=== PATIENT | male | born 1950 | race Caucasian/White ===

== ENCOUNTER 2018-03-01 12:45 | Outpatient (CLI) | payer MEDICARE, BC ==
[2018-03-01] MEDS ORDERED: Gadobenate Dimeglumine 529 MG/1 ML (20ML VIAL) ONE (12:59)
--- NOTE | 2018-03-01 15:12 | MRI ---
CERVICAL SPINE MRI WITHOUT CONTRAST: History: Cervical spondylosis with myelopathy. Neck pain x many years. Comparison: None. Technique: Cervical spine MRI is performed without intravenous gadolinium administration. Multisequen tial, multiplanar imaging is performed. FINDINGS: There is appropriate T1 marrow signal intensity of the majority of the cervical vertebrae. There is T 1 hypointensity with associated T2 and STIR hyperintensity along the left aspect of the C6 and C7 dis c space suggesting endplate changes from type I Modic change. No evidence of fracture. No significant STIR hyperintensity to suggest vertebral body edema or ligamentous injury. The brain parenchyma, cervicomedullary junction, cervical cord, and the upper thoracic cord have a no rmal size and signal intensity. C2-3: There is a disc osteophyte complex that abuts the thecal sac. There is mild central canal steno sis neural foramina are patent bilaterally. Mild left hypertrophy. C3-4: Broad based disc osteophyte complex abuts the thecal sac. There is deformity of the ventral the brittani sac and mild deformity of the cervical cord. Overall there is mild central canal stenosis. There is no T2 hyperintensity in the cord. Degenerative change and bilateral uncal vertebral joints results in mild right and mild to moderate left foraminal narrowing. C4-5: There is a broad based disc osteophyte complex with a central component. The ventral midline castro barachnoid space is effaced. Mild deformity of the cervical cord, without T2 hyperintensity of the co rd. Mild to moderate central canal stenosis. Mild bilateral foraminal narrowing due to degenerative c hange of the uncal vertebral joint. C5-6: A broad based calcified complex with a slight paracentral component. The ventral subarachnoid s pace is effaced. There is deformity of the cervical cord. Mild to moderate central canal stenosis, wi thout T2 hyperintensity of the cord. Right neural foramen is patent. Mild left foraminal narrowing du e to degenerative changes of the uncal vertebral joint and to a lesser extent, facet hypertrophy. C6-7: Broad based osteophyte complex abuts the thecal sac. Ventral CSF space is still maintained. The re is mild deformity of the cervical cord, without T2 hyperintensity of the cord. Mild central canal stenosis. Neural foramina are patent. C7-T1: No evidence of disc osteophyte complex. No significant central canal stenosis. Neural foramina are patent. IMPRESSION: Degenerative changes of the cervical spine as above. POS: [facility]
--- NOTE | 2018-03-01 16:00 | MRI ---
LUMBAR SPINE MRI WITH AND WITHOUT CONTRAST: Date: 03/01/18 HISTORY: Lumbar spinal stenosis. Previous surgery. Generalized weakness. COMPARISON: None. TECHNIQUE: Lumbar spine MRI is performed with and without intravenous Gadolinium administration. Multisequential , multiplanar imaging is performed. FINDINGS: There is unilateral right-sided transpedicular screws at L4 and L5. There is associated metallic susc eptibility artifact. There is appropriate T1 marrow signal intensity of the lumbar vertebra. Vertebral body height is main tained. There is no fracture. No significant STIR hyperintensity to suggest vertebral body edema or l igamentous injury. No abnormal enhancement of the vertebral bodies. No abnormal enhancement within the thecal sac, including the cauda equina or conus medullaris. There is an exophytic 3.0 cm cyst in the left kidney. Symmetric signal intensity of the psoas muscles . Conus medullaris terminates at the mid L1 level. T12-L1: Mild disc desiccation. Mild loss of disc space height. Minimal generalized disc bulge. No significant central canal stenosis or neural foraminal narrowing. Mild bilateral foraminal narrowing is noted. L1-L2: Desiccation with mild loss of disc space height. Generalized disc bulge, ligamentum flavum thickening , and facet hypertrophy result in mild central canal stenosis. Mild bilateral foraminal narrowing. L2-L3: Desiccation with mild loss of disc space height. There is ligamentum flavum thickening and facet hype rtrophy. No significant central canal stenosis. Mild bilateral foraminal narrowing. L3-L4: Desiccation with mild loss of disc space height. Generalized disc bulge, ligamentum flavum thickening , and facet hypertrophy result in minimal central canal stenosis. Limited evaluation of the neural fo ramina. There appears to be at least moderate bilateral foraminal narrowing. On the postcontrast imag es, there is minimal enhancement at the laminectomy defect site. L4-L5: Mild loss of disc space height. Posterior decompression is noted. There is a generalized disc bulge. No significant central canal stenosis. Limited evaluation of the neural foramina. There appears to be moderate to severe bilateral foraminal narrowing. On the postcontrast images, there is mild enhancem ent along the right paracentral region, likely representing a component of scar tissue. L5-S1: Posterior decompression. No significant central canal stenosis. Adequate disc hydration. Neural zain antoni are patent bilaterally. Note, the overall AP diameter of the central spinal canal and the overall size of the neural foramina are diminutive secondary to congenitally foreshortened pedicles. IMPRESSION: 1. Postsurgical changes as above. 2. Varying degrees of central canal stenosis and foraminal narrowing as above. The overall diameter of the central spinal canal and the diameter of the neural foramina is decreased secondary to congeni tally foreshortened pedicles. POS: [facility]
== END 2018-03-01 12:46 | disposition home or self-care (01) ==
LOC: TBSIIMAG 12:45
PROVIDERS: ATTEND Neurological Surgery
DX: M47.12 Other spondylosis with myelopathy, cervical region (principal); M48.061 Spinal stenosis, lumbar region without neurogenic claudication; M99.83 Other biomechanical lesions of lumbar region; Z98.890 Other specified postprocedural states
CPT/HCPCS: 72141; 72158; A9579

== ENCOUNTER 2018-03-08 09:01 | Outpatient (CLI) | payer MEDICARE, BC ==
--- NOTE | 2018-03-08 11:58 | MRI ---
BRAIN MRA WITHOUT CONTRAST: HISTORY: Gait instability. COMPARISON: None. TECHNIQUE: A brain MRI is performed without intravenous Gadolinium administration. Multisequential, multiplanar imaging is performed. FINDINGS: No hemorrhage on the axial gradient echo sequence. Calvarium has a normal T1 marrow signal intensity. Midline brain parenchymal structures are unremark able. Age-appropriate atrophy. Focus of gliosis involving the left frontal lobe, near the vertex. There a re minimal white matter hyperintensities due to chronic small-vessel ischemic change. No parenchymal mass, mass effect, or midline shift. Cortical angel-white matter differentiation is preserved. Ventricles and sulci are patent and symmetric. Central arterial flow voids are maintained. Absent r estricted diffusion. There is left maxillary sinus mucosal disease. Mucosal thickening of the ethmoid air cells is noted bilaterally. Bilateral ocular lens implants are identified. Adequate mastoid air cell aeration. IMPRESSION: 1. No acute intracranial process. 2. Age-appropriate atrophy. 3. Focal area of gliosis involving the left frontal lobe, near the vertex. POS: [facility]
== END 2018-03-08 09:02 | disposition home or self-care (01) ==
LOC: TBSIIMAG 09:01
PROVIDERS: ATTEND Neurological Surgery
DX: R26.81 Unsteadiness on feet (principal); G93.89 Other specified disorders of brain
CPT/HCPCS: 70551

== ENCOUNTER 2018-03-19 21:38 | Observation (INO) | payer MEDICARE, BC ==
[2018-03-19 23:06] LABS: Troponin I 0.045 ng/mL (< 0.028)
[2018-03-20 02:02] LABS: Troponin I 0.033 ng/mL (< 0.028)
[2018-03-20 03:42] VITALS: BMI 36.5
[2018-03-20] MEDS ORDERED: Ondansetron HCl/PF 4 MG/2 ML Vial IVP PRN (03:45)
[2018-03-20] MEDS ORDERED: Ondansetron ODT 4 MG TAB SL PRN (03:45)
[2018-03-20] MEDS ORDERED: Sodium Chloride 0.9% 1,000 ML IV SCH (03:45)
[2018-03-20] MEDS ORDERED: Acetaminophen 325 MG TAB PO PRN ×2 (03:45→07:45)
[2018-03-20] MEDS ORDERED: Ondansetron ODT 4 MG TAB PO PRN (07:45)
[2018-03-20 08:26] LABS: Anion Gap 13 mmol/L (10-20); BUN (Urea Nitrogen) 12 mg/dL (8.4-25.7); Calc. Creatinine Clearance 126 mL/min (70-130); Calcium 9.2 mg/dL (7.8-10.44); Carbon Dioxide 23 mmol/L (23-31); Chloride 102 mmol/L (98-107); Estimated GFR-MDRD 90; Glucose 143 mg/dL (80-115); Potassium 4.1 mmol/L (3.5-5.1); Sodium 134 mmol/L (136-145)
[2018-03-20] MEDS ORDERED: Prevnar 13-Val Conj/PF 0.5 ML SYRINGE IM ONE (09:00)
--- NOTE | 2018-03-20 09:01 | HP ---
PRIMARY CARE PROVIDER: Rozina Reyes D.O. CHIEF COMPLAINT: Referred to the [facility] by [facility] after being seen in the [facility]. He was referred for gastroenteritis. HISTORY OF PRESENT ILLNESS: Two days ago, he started aching all over. He felt like he had fever, no documentation. He had chills, felt weak all over. The next day he felt a little better and then th e symptoms occurred. On day 1, he had some scant nausea, vomiting, some scant loose stools 2 days ag o. No definitive abdominal pain. He is much better now. He states he just ached all over. PAST MEDICAL HISTORY: Coronary artery disease, post coronary artery bypass graft 3 years ago; hypert ension; dyslipidemia. PAST SURGICAL HISTORY: He has had coronary artery bypass graft 3 years ago, L-spine surgery, catarac t surgery bilaterally, cholecystectomy. CURRENT MEDICINES: He is not aware of his current medications. When last discharged from the hospit al, approximately 1 year ago, vitamin C 1000 mg a day, Coreg 6.25 mg twice a day, aspirin 325 mg a da y, atorvastatin 80 mg a day, lisinopril 5 mg a day, diclofenac, and tramadol p.r.n. ALLERGIES: No known drug allergies. SOCIAL HISTORY: , nonsmoker, nondrinker. CODE STATUS: FULL CODE status. is surrogate decision maker. FAMILY HISTORY: Pertinent for heart disease in his mother. REVIEW OF SYSTEMS: General: He had like stated briefly with present illness, no fainting. Eyes: N o double vision, blurred vision, flashing lights. Ears, Nose, and Throat: No ear pain or drainage. No nasal bleeding. No trouble swallowing. Cardiac: No chest pain, no pressure chest pain, no shor tness of breath, no paroxysmal nocturnal dyspnea, no orthopnea. Respiratory: No cough, wheezing, or asthma. Gastrointestinal: See present illness. Genitourinary: No hematuria, dysuria, or nocturia . Musculoskeletal: Aches and pains with present illness; otherwise, no specific joint or muscle com plaints. No swelling. Neurologic: No strokes, seizures, or focal weakness. Psychiatric: No anxie ty, depression. Skin: No bruising, bleeding, or rash. Heme/Lymph: No tender or swollen lymph node s in axilla, inguinal, or cervical area. PHYSICAL EXAMINATION: GENERAL: He is an alert, pleasant, cooperative, eating. VITAL SIGNS: Blood pressure 152/67, pulse 74, respirations 15, temperature 98.0. HEENT: Examination of his head, eyes, ears, nose, and throat reveal pupils equal, round, and reactiv e to light. Extraocular movements are intact. Sclerae white. Tympanic membranes clear. Nose clear . Oral mucous membranes are wet. Dental hygiene is good. NECK: Supple, without jugular venous distention, adenopathy, thyromegaly. CHEST: Clear to auscultation and percussion. HEART: Had a regular rate and rhythm. First and second heart sounds are clear. There are no murmur s or gallops. ABDOMEN: Soft, bowel sounds are normal. There is no hepatosplenomegaly, no mass, no rebound, no bru its. EXTREMITIES: Reveal no cyanosis, clubbing, or edema. PULSES: Carotid, radial, femoral, and dorsalis pedis pulses intact, symmetric. SKIN: Warm and dry without bruises or rash. HEME/LYMPH: No tender or swollen lymph nodes in axillae, inguinal, or cervical area. NEUROLOGICAL: Cranial nerves II-XII are intact. Deep tendon reflexes symmetric. Moves all extremit ies. Toes downgoing. LABORATORY AND X-RAY FINDINGS: Done in [place], white cell count 15.4, hemoglobin 13.8, platelet co unt 129,000. Sodium 133, potassium 4.4, chloride 22, BUN 13, creatinine 0.95. Bilirubin 2.4, AST an d ALT normal. Cardiac enzymes, troponin 0.048, 0.045, 0.033. Urine is negative for white cells, germán kocyte esterase, etc. EKG: Regular sinus rhythm, first-degree block, no ST-T abnormality, normal re port, otherwise normal, reviewed by me. Chest x-ray, borderline cardiomegaly, no CHF or infiltrate, reviewed by me. ADMITTING DIAGNOSES: 1. Viral syndrome. 2. Coronary artery disease. 3. Hypertension. 4. Dyslipidemia. 5. Elevated troponin levels. DISCUSSION: I believe this patient has resolved viral syndrome. We will repeat CBC, basic metabolic profile. We will observe today. His troponins are descending. He has no cardiac symptomatology. No rise in his troponins, as the first one was the highest and the next two were lower. I currently see no reason for further workup at this time. I am waiting for his medicines to be updated, but he is currently on aspirin and a statin and a beta-panda by history. We will continue.
[2018-03-20 09:14] LABS: Band 1 % (5-11); Eosinophils 1 % (0-10); Hemoglobin 13.8 g/dL (14.0-18.0); Large Platelets SLIGHT; Lymphocytes 12 % (21-51); MDiff Complete? YES; Mean Corpuscular HGB CONC 35.1 g/dL (32.0-36.0); Mean Corpuscular Hemoglobin 32.3 pg (27.0-31.0); Mean Corpuscular Volume 92.2 fL (78.0-98.0); Mean Platelet Volume 9.1 fL (7.4-10.4); Monocytes 4 % (0-10); Neutrophil 80 % (42-75); PLT Morphology Comment Appears Decreased; Platelet Count 116 thou/uL (130-400); Polychromasia SLIGHT = 2-3 cells (100X) (0-2/hpf); RBC Distribution Width 12.1 % (11.5-14.5); Reactive Lymphocytes 2 % (0-10); Red Blood Cell (RBC) Count 4.27 mill/uL (4.70-6.10); White Blood Cell (WBC) Count 11.7 thou/uL (4.8-10.8)
[2018-03-20 11:31] VITALS: BP 155/69; TEMP 98
--- NOTE | 2018-03-20 14:08 | PDOC.PN ---
- Subjective Encounter Start Date: 03/20/18 Encounter Start Time: 14:07 Subjective: no complaints this am - Objective Resuscitation Status: Resuscitation Status FULL:Full Resuscitation MAR Reviewed: Yes Vital Signs & Weight: Vital Signs (12 hours) Temp Pulse Resp BP Pulse Ox 03/20/18 11:30 98.0 F 68 18 155/69 H 94 L 03/20/18 08:00 98.4 F 77 18 140/63 96 03/20/18 03:25 98.0 F 74 15 152/67 H 99 Weight Weight 233 lb 3.2 oz Result Diagrams: 03/20/18 07:58 03/20/18 07:58 Phys Exam - Physical Examination Neck: no JVD Respiratory: clear to auscultation bilateral Cardiovascular: RRR chronic bradycardia Gastrointestinal: soft, positive bowel sounds Musculoskeletal: no edema Dx/Plan (1) Sinus bradycardia Code(s): R00.1 - BRADYCARDIA, UNSPECIFIED Status: Chronic (2) Dizziness and giddiness Code(s): R42 - DIZZINESS AND GIDDINESS Status: Acute - Plan * .
--- NOTE | 2018-03-20 15:01 | DIS ---
DATE OF ADMISSION: 03/20/2018 DATE OF DISCHARGE: 03/20/2018 TRANSFER OF CARE DISCHARGE DISPOSITION: Home. FINAL DIAGNOSES: Viral syndrome, resolved; coronary artery disease, stable; hypertension; elevated c holesterol. DISCHARGE MEDICATIONS: Same as his home medicines, lisinopril 5 mg a day, Lasix 20 mg a day, Coreg 6 .25 mg twice a day, Lipitor 80 mg a day, fish oil 1000 mg twice a day, aspirin 325 a day, vitamin C 5 00 a day. ALLERGIES: No known allergies. PENDING AT THE TIME OF DISCHARGE: Nothing. CODE STATUS: Full. DIET: Heart healthy. HOSPITAL COURSE: The patient admitted to the hospital through [place] emergency room with 2 days of whole body aches, fever, chills, some minimal nausea and vomiting, some minimal diarrhea. He is a ctually feeling much better by the time he got to the hospital. His Physical examination was unremar kable. EKG was normal. LABORATORY DATA: White count 11.7, hemoglobin 13.8, platelet count 116,000. Chemistries 134 sodium, otherwise normal. Troponins were 0.048, 0.045, 0.033. The patient is currently desirous of going home. He feels well. Vital signs are stable. Cardioresp iratory exam is normal. He has never had chest pain, shortness of breath or any cardiac symptoms. H is troponins are mildly elevated and in a descending range, strongly suggestive that there is no evid ence of a non-ST elevation NM. It would be reasonable once he is completely recovered from his viral syndrome to consider doing an outpatient exercise stress test. This can easily be arranged as an ou tpatient. CONSULTATIONS: None. PROCEDURES: None. His doctor was listed as Dr. Rozina Reyes. He says now it is a Dr. Peterson. He has been asked to see his doctor in 1 week for followup.
== END 2018-03-20 14:29 | disposition home or self-care (01) ==
LOC: ERS 21:38 → 2NO 03-20 01:36
PROVIDERS: ADMIT Hospitalist; ATTEND Hospitalist
DX: B34.9 Viral infection, unspecified (principal); R00.1 Bradycardia, unspecified; R42 Dizziness and giddiness; I25.10 Atherosclerotic heart disease of native coronary artery without angina pectoris; I10 Essential (primary) hypertension; E78.5 Hyperlipidemia, unspecified; R79.89 Other specified abnormal findings of blood chemistry; Z79.82 Long term (current) use of aspirin; Z79.899 Other long term (current) drug therapy
CPT/HCPCS: 80048; 84484 ×2; 85007; 85027; 99285; G0378; 36415; 90471; 90670; G0009

== ENCOUNTER 2019-01-28 04:54 | Inpatient (IN) | payer MEDICARE, BC ==
[2019-01-28 06:46] LABS: Troponin I 0.092 ng/mL (< 0.028)
[2019-01-28] MEDS ORDERED: Ondansetron PF 4 MG/2 ML Vial IVP PRN ×2 (07:25→10:24)
[2019-01-28] MEDS ORDERED: Ondansetron ODT 4 MG TAB SL PRN (07:25)
[2019-01-28 07:55] VITALS: BMI 36.3
[2019-01-28 09:36] LABS: Troponin I 0.097 ng/mL (< 0.028)
[2019-01-28] MEDS ORDERED: Calcium Carbonate 500 MG ChewTAB PO PRN (10:24)
[2019-01-28] MEDS ORDERED: Guaifenesin DM 100-10/5 ML UDCUP PO PRN (10:24)
[2019-01-28] MEDS ORDERED: Acetaminophen 325 MG TAB PO PRN (10:24)
[2019-01-28] MEDS ORDERED: Bisacodyl 10 MG SUPP PR PRN (10:24)
[2019-01-28] MEDS ORDERED: Senokot S 8.6-50 MG TAB PO PRN (10:24)
[2019-01-28] MEDS ORDERED: Iopamidol 370 76% 100 ML VIAL ONE (11:05)
--- NOTE | 2019-01-28 13:41 | ULT ---
EXAM: Bilateral lower extremity venous ultrasound HISTORY: Bilateral lower extremity pain and edema COMPARISON: None TECHNIQUE: Multiplanar grayscale and color Doppler images were obtained in a bilateral lower extremit y venous ultrasound. Spectral analysis of the Doppler waveforms were performed. FINDINGS: The bilateral common femoral vein, profunda femoral veins, superficial femoral veins, and p opliteal veins are normal in appearance without visible thrombus. These vessels demonstrate normal compression, flow, and augmentation. The bilateral posterior tibial veins and greater saphenous veins are patent without evidence of DVT. IMPRESSION: No evidence of DVT.
--- NOTE | 2019-01-28 14:12 | HP ---
REASON FOR ADMISSION: CHF exacerbation, non-ST elevation FL, hyponatremia, and metabolic acidosis. HISTORY OF PRESENTING ILLNESS: The patient gives history of feeling weak and was unable to ambulate at home. He apparently got up at around 1:30 in the night to have a bowel movement. He fell in the restroom, but did not lose consciousness. He states his knees gave out and had a fall. The patient did not lose consciousness. He went to [facility], from where he was transferred here. No complaints of chest pain as such. The patient has progressive swelling in his lower extremities. He has had some swelling always, but increased at present. He has also been belching a lot since then. No complaints of cough or expectoration. The patient ambulates very minimally in the house. at bedside adds that he does not exercise much. He follows up with Dr. Silver. The patient has had FL in 2016 and has had CABG for LAD done in November of 2015. The mentions that even then the patient just had a viral-type illness something similar to at present. No fever at home, although he has felt chills. PAST MEDICAL AND SURGICAL HISTORY: History of coronary artery disease with one-vessel CABG done in November of 2015. Has had 3 prior cardiac stents per the patient. Cataract surgery, dyslipidemia, hypertension, obesity, lumbar spine surgery, and cholecystectomy. CURRENT MEDICATIONS: The patient takes; 1. Lasix 20 mg daily. 2. Lisinopril 5 mg daily. 3. Atorvastatin 80 mg p.o. daily. 4. Carvedilol 6.25 mg twice daily. 5. Fish oil 1000 mg p.o. daily. 6. Vitamin C 500 mg p.o. daily. 7. Centrum Silver 1 tablet daily. 8. Aspirin 81 mg twice daily. ALLERGIES: NO KNOWN DRUG ALLERGIES. PERSONAL HISTORY: Does not abuse alcohol or drugs. Quit smoking more than 15 years ago. Lives with his . FAMILY HISTORY: Mother at the age of 63 years. She has had history of CABG for 3 vessels. Father at the age of 80 years. He has had history of diabetes. REVIEW OF SYSTEMS: CONSTITUTIONAL: Negative for weight loss or gain, ability to conduct usual activities. SKIN: Negative for rash, itching. EYES: Negative for double vision, pain. ENT/MOUTH: Negative for nose bleeding, neck stiffness, pain, tenderness. CARDIOVASCULAR: Negative for palpitations, dyspnea on exertion, orthopnea. RESPIRATORY: Negative for shortness of breath, wheezing, cough, hemoptysis, fever or night sweats. GASTROINTESTINAL: Negative for poor appetite, abdominal pain, heartburn, nausea , vomiting, constipation, or diarrhea. GENITOURINARY: Negative for urgency, frequency, dysuria, nocturia. MUSCULOSKELETAL: Negative for pain, swelling. NEUROLOGIC/PSYCHIATRIC: Negative for anxiety, depression. ALLERGY/IMMUNOLOGIC: Negative for skin rash, bleeding tendency. PHYSICAL EXAMINATION: GENERAL: The patient is a 68-year-old male, who is currently lethargic and is not feeling good. VITAL SIGNS: Blood pressure 130/64, pulse 76 per minute, respiratory rate 16 per minute, temperature 98.8 degrees Fahrenheit, and saturating 96% on 2 L by nasal cannula. NECK: Supple. No elevated JVD. HEENT: Eyes; extraocular muscles intact. Pupils are reacting to light. Oral cavity, mucous membranes are moist. No exudates or congestion. CARDIOVASCULAR: S1 and S2 heard. No murmur. RESPIRATORY SYSTEM: Air entry 1+ bilateral. Basal rales plus no rhonchi. ABDOMEN: Soft. Bowel sounds heard. No tenderness, rigidity, or guarding. EXTREMITIES: There is 1 to 2+ peripheral edema. No calf tenderness. VASCULAR SYSTEM: Peripheral pulses 1+ bilateral. No ischemic ulcerations or gangrene. CENTRAL NERVOUS SYSTEM: No gross focal deficits noted. The patient is lethargic, but oriented well. PSYCHIATRIC SYSTEM: The patient's mood is euthymic. No hallucinations or delusions. LABORATORY DATA: EKG done shows normal sinus rhythm at 78 beats per minute. There is nonspecific ST-T wave changes. Chest x-ray done shows cardiomegaly. No acute infiltrate. White count of 8, H and H 13 and 40, platelet count 99 with 69% neutrophils, MCV is 89. Sodium is 129, serum bicarb 19, BUN 16, creatinine 0.8 , and T bilirubin 1.5. AST and ALT within normal limits. BNP is 594. Troponin I is indeterminate, peaking up to 0.097. CK-MB 1.7. Albumin is 3.6. CLINICAL IMPRESSION AND PLAN: The patient will be under observation on telemetry for acute congestive heart failure exacerbation with prior history of coronary artery disease and coronary artery bypass grafting. We will also obtain a urinalysis in view of his chills and a CT of the abdomen and pelvis due to nonspecific abdominal discomfort and belching. Echo with 2D Doppler for left ventricular function. Ultrasound venous Doppler to rule out deep venous thrombosis. He will be on Lasix 40 mg twice daily, small dose of lisinopril and home dose of Coreg 6.25 twice daily. We will continue his aspirin, Lipitor, fish oil, and multivitamin as before. Cardiology consultation with Dr. Silver will be requested. CODE STATUS: Discussed with the patient and he is a full code. is power of trust and estates attorney. Job ID: [id number] [id number]
--- NOTE | 2019-01-28 15:13 | CT ---
CONTRAST ENHANCED CT IMAGES ABDOMEN AND PELVIS: HISTORY: Abdominal vomiting and pain. FINDINGS: Contrast enhanced CT images of the abdomen and pelvis demonstrate a small right-sided pleural effusio n. Some adjacent areas of atelectasis and consolidation also present. The liver and spleen are unremarkable. The gallbladder has been surgically removed. The pancreas is unremarkable. Adrenal glands unremarkable. The right kidney is unremarkable. Cortical cyst seen in the upper pole of the left kidney. Atherosclerotic calcination seen of the abdominal aorta. Some calcifications seen in the celiac artery as well as in the proximal aspect of the superior mesen teric artery. Some noncalcified plaques also seen in the proximal SMA. Findings suggest at least a 50-60% proximal SMA stenosis. The YOVANI is patent. The renal arteries are patent. No evidence of periaortic lymphadenopathy seen. Bilateral mildly enlarged inguinal lymph nodes are present. Small bowel and colon are unremarkable. IMPRESSION: 1. 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 Transcribed Date/Time: 01/28/2019 3:24 PM
[2019-01-28] MEDS: Furosemide 40 MG/4 ML VIAL SLOW IVP SCH (16:28)
[2019-01-28 17:01] LABS: Bilirubin Negative (Negative); Blood, Urine Negative (Negative); Clarity CLEAR (Clear); Glucose, Urine (Dipstick) Negative (Negative); Leukocyte Negative (Negative); Nitrite Negative (Negative); Protein, Urine (Dipstick) Negative (Neg-Trace); Specific Gravity, Urine 1.025 (1.002-1.036)
[2019-01-28 17:04] LABS: Bacteria/HPF None Seen HPF (None Seen); Hyaline Casts/LPF 0-3 HYALINE CAST LPF (0-3 Hyaline); Squamous Epithelial None Seen HPF (0-3); WBC/HPF 0-3 HPF (0-3)
[2019-01-28 17:06] LABS: Urine Culture Reflex No No
[2019-01-28] MEDS: Piperacillin/Tazobactam 4.5 GM in Sodium Chloride 0.9% 100 ML IVPB SCH (18:31)
[2019-01-28] MEDS ORDERED: OMEGA PO SCH (21:00)
[2019-01-28] MEDS ORDERED: FISH OIL PO SCH (21:00)
[2019-01-28] MEDS ORDERED: DHA PO SCH (21:00)
[2019-01-28] MEDS ORDERED: EPA PO SCH (21:00)
[2019-01-28] MEDS ORDERED: [UNRECOGNIZED DRUG - OTHER] PO SCH (21:00)
[2019-01-28] MEDS: Atorvastatin Calcium 40 MG TAB PO SCH (21:07)
[2019-01-28] MEDS: Fish Oil 1,000 MG CAP PO SCH (21:08)
[2019-01-28] MEDS: Carvedilol 6.25 MG TAB PO SCH (21:10)
[2019-01-28] MEDS: Famotidine 20 MG TAB PO SCH (21:10)
--- NOTE | 2019-01-28 23:21 | CON ---
DATE OF CONSULTATION: REASON FOR CONSULTATION: Indeterminate troponin. HISTORY OF PRESENT ILLNESS: Mr. Dubois is a 68-year-old gentleman with previous history of a CAD, status post bypass surgery in 2016. He recently presented with profound weakness. He also has had diarrhea, low-grade fevers and muscle aches and pains. His elevated troponin is not felt to be a major contributor and likely type 2 myocardial infarction. He denies chest pain or pressure. He does have shortness of breath that is chronic. PAST MEDICAL HISTORY: CAD, status post stent placement in addition to bypass surgery, cataract surgery, hyperlipidemia, hypertension, obesity, lumbar spine surgery and cholecystectomy. HOME MEDICATIONS: Include lisinopril, atorvastatin, Lasix, atorvastatin, carvedilol, fish oil, vitamin C, Centrum Silver, and aspirin. ALLERGIES: NONE. SOCIAL HISTORY: No current tobacco or alcohol use. FAMILY HISTORY: Negative for CAD. REVIEW OF SYMPTOMS: Ten-point review of systems is reviewed as above, otherwise negative. PHYSICAL EXAMINATION: VITAL SIGNS: Blood pressure 130/58, pulse 79, temperature 99. GENERAL: Patient is a pleasant 68-year-old gentleman who is in no acute distress. The patient appears their stated age. NEUROLOGIC: The patient is alert and oriented x3 with no focal neurologic deficits. HEENT: Sclerae without icterus. Mouth has moist mucous membranes with normal pallor. NECK: No JVD. Carotid upstroke brisk. No bruits bilaterally. LUNGS: Clear to auscultation with unlabored respirations. BACK: No scoliosis or kyphosis. CARDIAC: Regular rate and rhythm with normal S1 and S2. No S3 or S4 noted. No significant rubs, murmurs, thrills, or gallops noted throughout the precordium. PMI is not displaced. There is no parasternal heave. ABDOMEN: Soft, nontender, nondistended. No peritoneal signs present. No hepatosplenomegaly. No abnormal striae. EXTREMITIES: 2+ femoral and 2+ dorsalis pedis pulses. No cyanosis, clubbing, or edema. SKIN: No gross abnormalities. PERTINENT LABORATORY DATA: Peak troponin 0.092. IMPRESSION: 1. Elevated troponin. 2. Myalgias. 3. Low-grade fever. 4. Weakness. RECOMMENDATIONS: Mr. Dubois does have a history of CAD, status post bypass surgery in addition to stent placement. I do not feel this is a contributor to his current myriad of symptoms. At this point, recommend continued conservative therapy. Continue home medications as prescribed. Further recommendation per Dr. Jam Silver in a.m. Job ID: [id number]
[2019-01-29] MEDS: Piperacillin/Tazobactam 4.5 GM in Sodium Chloride 0.9% 100 ML IVPB SCH ×3 (03:19→18:35)
[2019-01-29] MEDS: Furosemide 40 MG/4 ML VIAL SLOW IVP SCH ×2 (05:24→13:32)
[2019-01-29 07:13] LABS: Hemoglobin 14.5 g/dL (14.0-18.0); Mean Corpuscular HGB CONC 36.4 g/dL (32.0-36.0); Mean Corpuscular Hemoglobin 32.9 pg (27.0-31.0); Mean Corpuscular Volume 90.4 fL (78.0-98.0); Mean Platelet Volume 9.5 fL (7.4-10.4); Platelet Count 108 thou/uL (130-400); RBC Distribution Width 12.3 % (11.5-14.5); Red Blood Cell (RBC) Count 4.39 mill/uL (4.70-6.10); White Blood Cell (WBC) Count 10.4 thou/uL (4.8-10.8)
[2019-01-29 07:28] LABS: Anion Gap 15 mmol/L (10-20); BUN (Urea Nitrogen) 17 mg/dL (8.4-25.7); Calc. Creatinine Clearance 104 mL/min (70-130); Carbon Dioxide 25 mmol/L (23-31); Chloride 96 mmol/L (98-107); Estimated GFR-MDRD 74; Glucose 104 mg/dL (80-115); Potassium 3.8 mmol/L (3.5-5.1); Sodium 132 mmol/L (136-145)
--- NOTE | 2019-01-29 07:39 | PDOC.EVN ---
Event Note - Event Note Event Note: developed fever of 102 in the evening, blood cs x2 sent, CTA shows ? consolidation/atelectasis, will check viral pcr, start zosyn. Change status to inpatient. Urinalysis shows no evidence of uti.
[2019-01-29 08:05] LABS: Band 2 % (5-11); Lymphocytes 20 % (21-51); MDiff Complete? YES; Monocytes 22 % (0-10); Neutrophil 55 % (42-75); Platelet Morphology Comment Appears Decreased; RBC Morphology Normal; Reactive Lymphocytes 1 % (0-10)
[2019-01-29] MEDS ORDERED: Non-Formulary Item 1 EACH (Multivitamin/Iron/Folic Acid [Centrum Complete Multivitamin] 1 PO SCH (09:00)
[2019-01-29 09:50] LABS: Cardiac Risk 3.9 (Less than 4.5)
[2019-01-29] MEDS: Famotidine 20 MG TAB PO SCH ×2 (10:40→21:00)
[2019-01-29] MEDS: Aspirin Chewable 81 MG TAB PO SCH (10:40)
[2019-01-29] MEDS: Lisinopril 2.5 MG TAB PO SCH (10:40)
[2019-01-29] MEDS: Multivit, Therapeutic 1 TAB PO SCH (10:40)
[2019-01-29] MEDS: Carvedilol 6.25 MG TAB PO SCH ×2 (10:41→21:01)
[2019-01-29] MEDS: Enoxaparin Sodium 40 MG/0.4 ML SYRINGE SC SCH (10:41)
[2019-01-29] MEDS: Fish Oil 1,000 MG CAP PO SCH ×2 (10:48→21:01)
--- NOTE | 2019-01-29 14:57 | PDOC.PN ---
- Subjective Encounter Start Date: 01/29/19 Encounter Start Time: 14:55 Subjective: Admitted with acute weakness and loose stools associated with a fall. -: Also reported worsening leg swelling. Later developed temp 102 on admission -: Still having loose stools. Feeling better otherwise - Objective Resuscitation Status - Order Detail: 01/28/19 10:18 Resuscitation Status Routine Resuscitation Status: FULL: Full Resuscitation Vital Signs & Weight: Vital Signs (12 hours) Temp Pulse Resp BP BP BP Pulse Ox 01/29/19 10:41 133/58 L 01/29/19 10:40 70 01/29/19 08:00 99.2 F 70 18 133/58 L 95 01/29/19 03:10 98.3 F 64 20 127/56 L 96 Weight Admit Weight 231 lb 14.08 oz Weight 230 lb 2.601 oz I&O: 01/28/19 01/29/19 01/30/19 06:59 06:59 06:59 Intake Total 1160 Output Total 1527 Balance -367 Result Diagrams: 01/29/19 06:48 01/29/19 06:48 Phys Exam - Physical Examination Constitutional: NAD obese HEENT: PERRLA, moist MMs Neck: no JVD, supple Respiratory: no wheezing, no rales, no rhonchi, clear to auscultation bilateral Cardiovascular: RRR, no significant murmur Gastrointestinal: soft, non-tender, no distention, positive bowel sounds Musculoskeletal: edema present mild to moderate bilateral leg edema Neurological: non-focal, moves all 4 limbs Psychiatric: normal affect, A&O x 3 Dx/Plan (1) Acute on chronic combined systolic (congestive) and diastolic (congestive) heart failure Code(s): I50.43 - ACUTE ON CHRONIC COMBINED SYSTOLIC AND DIASTOLIC HRT FAIL Status: Acute (2) CAD (coronary artery disease) Code(s): I25.10 - ATHSCL HEART DISEASE OF [place] CORONARY ARTERY W/O ANG PCTRS Status: Acute (3) HTN (hypertension) Code(s): I10 - ESSENTIAL (PRIMARY) HYPERTENSION Status: Acute (4) Fever Code(s): R50.9 - FEVER, UNSPECIFIED Status: Acute (5) Physical deconditioning Code(s): R53.81 - OTHER MALAISE Status: Acute (6) Acute diarrhea Code(s): R19.7 - DIARRHEA, UNSPECIFIED Status: Acute (7) Bilateral leg edema Code(s): R60.0 - LOCALIZED EDEMA Status: Acute (8) SMA stenosis Code(s): I77.1 - STRICTURE OF ARTERY Status: Acute (9) Obesity Code(s): E66.9 - OBESITY, UNSPECIFIED Status: Chronic Qualifiers: Obesity type: unspecified obesity type Qualified Code(s): E66.01 - Morbid ( severe) obesity due to excess calories (10) Hyponatremia Code(s): E87.1 - HYPO-OSMOLALITY AND HYPONATREMIA Status: Acute - Plan Continue antibiotics and diuretic. -: Awaiting stool studies -: PT.OT eval and treat. -: Follow electrolytes and replete as needed * .
[2019-01-29] MEDS: Atorvastatin Calcium 40 MG TAB PO SCH (21:00)
[2019-01-30] MEDS: Piperacillin/Tazobactam 4.5 GM in Sodium Chloride 0.9% 100 ML IVPB SCH ×2 (02:28→09:33)
[2019-01-30 05:17] LABS: ALT (SGPT) 26 U/L (8-55); AST (SGOT) 25 U/L (5-34); Albumin 3.6 g/dL (3.4-4.8); Alkaline Phosphatase 75 U/L (40-150); Anion Gap 15 mmol/L (10-20); BUN (Urea Nitrogen) 26 mg/dL (8.4-25.7); Bilirubin, Total 1.5 mg/dL (0.2-1.2); Calc. Creatinine Clearance 92 mL/min (70-130); Calcium 9.1 mg/dL (7.8-10.44); Carbon Dioxide 26 mmol/L (23-31); Chloride 99 mmol/L (98-107); Estimated GFR-MDRD 65; Globulin 3.3 g/dL (2.4-3.5); Glucose 110 mg/dL (80-115); Potassium 3.8 mmol/L (3.5-5.1); Protein, Total 6.9 g/dL (5.8-8.1); Sodium 136 mmol/L (136-145)
[2019-01-30 05:20] LABS: Band 1 % (5-11); Hemoglobin 13.6 g/dL (14.0-18.0); Hypochromia SLIGHT = 6-15 cells (100X) (0-5/hpf); Lymphocytes 16 % (21-51); MDiff Complete? YES; Mean Corpuscular HGB CONC 33.9 g/dL (32.0-36.0); Mean Corpuscular Hemoglobin 30.9 pg (27.0-31.0); Mean Corpuscular Volume 91.1 fL (78.0-98.0); Mean Platelet Volume 9.3 fL (7.4-10.4); Monocytes 7 % (0-10); Neutrophil 76 % (42-75); Platelet Count 119 thou/uL (130-400); Platelet Morphology Comment Appears Decreased; RBC Distribution Width 12.3 % (11.5-14.5); White Blood Cell (WBC) Count 9.7 thou/uL (4.8-10.8)
[2019-01-30] MEDS: Furosemide 40 MG/4 ML VIAL SLOW IVP SCH (05:53)
[2019-01-30] MEDS: Enoxaparin Sodium 40 MG/0.4 ML SYRINGE SC SCH (09:31)
[2019-01-30] MEDS: Multivit, Therapeutic 1 TAB PO SCH (09:32)
[2019-01-30] MEDS: Ezetimibe 10 MG TAB PO SCH (09:32)
[2019-01-30] MEDS: Fish Oil 1,000 MG CAP PO SCH ×2 (09:32→20:47)
[2019-01-30] MEDS: Carvedilol 6.25 MG TAB PO SCH ×2 (09:32→20:48)
[2019-01-30] MEDS: Famotidine 20 MG TAB PO SCH ×2 (09:32→20:47)
[2019-01-30] MEDS: Aspirin Chewable 81 MG TAB PO SCH (09:32)
[2019-01-30] MEDS: Lisinopril 2.5 MG TAB PO SCH (09:32)
--- NOTE | 2019-01-30 12:15 | PDOC.PN ---
- Subjective Encounter Start Date: 01/30/19 Encounter Start Time: 09:45 Subjective: feels better, dry cough -: has some diarrhea still, wants imodium -: stools test are -ve, no sob or chest pain - Objective Resuscitation Status - Order Detail: 01/28/19 10:18 Resuscitation Status Routine Resuscitation Status: FULL: Full Resuscitation MAR Reviewed: Yes Vital Signs & Weight: Vital Signs (12 hours) Temp Pulse Pulse Pulse Resp BP BP 01/30/19 10:39 70 81 144/64 H 01/30/19 09:32 65 130/54 L 01/30/19 08:00 97.4 F L 65 18 01/30/19 04:00 98.4 F 66 14 BP BP Pulse Ox Pulse Ox Pulse Ox 01/30/19 10:39 132/53 L 95 97 01/30/19 09:32 01/30/19 08:00 100/52 L 97 01/30/19 04:00 120/53 L 97 Weight Admit Weight 231 lb 14.08 oz Weight 227 lb 4.745 oz I&O: 01/29/19 01/30/19 01/31/19 06:59 06:59 06:59 Intake Total 1160 1600 Output Total 1527 1301 Balance -367 299 Result Diagrams: 01/30/19 04:34 01/30/19 04:34 Phys Exam - Physical Examination HEENT: PERRLA, moist MMs Neck: no JVD, supple Respiratory: no wheezing, no rales Cardiovascular: RRR, no significant murmur Gastrointestinal: soft, non-tender, positive bowel sounds Musculoskeletal: pulses present, edema present Neurological: non-focal, moves all 4 limbs Psychiatric: normal affect, A&O x 3 Dx/Plan (1) Acute diarrhea Code(s): R19.7 - DIARRHEA, UNSPECIFIED Status: Acute (2) Acute on chronic combined systolic (congestive) and diastolic (congestive) heart failure Code(s): I50.43 - ACUTE ON CHRONIC COMBINED SYSTOLIC AND DIASTOLIC HRT FAIL Status: Acute Comment: class B, ef of 45% (3) CAD (coronary artery disease) Code(s): I25.10 - ATHSCL HEART DISEASE OF [place] CORONARY ARTERY W/O ANG PCTRS Status: Chronic Qualifiers: Coronary Disease-Associated Artery/Lesion type: bypass graft [place] vs. transplanted heart: [place] heart Associated angina: without angina Qualified Code(s): I25.810 - Atherosclerosis of coronary artery bypass graft(s) without angina pectoris (4) Fever Code(s): R50.9 - FEVER, UNSPECIFIED Status: Acute Qualifiers: Fever type: unspecified Qualified Code(s): R50.9 - Fever, unspecified (5) HTN (hypertension) Code(s): I10 - ESSENTIAL (PRIMARY) HYPERTENSION Status: Chronic Qualifiers: Hypertension type: essential hypertension Qualified Code(s): I10 - Essential (primary) hypertension (6) Hyponatremia Code(s): E87.1 - HYPO-OSMOLALITY AND HYPONATREMIA Status: Resolved (7) Obesity Code(s): E66.9 - OBESITY, UNSPECIFIED Status: Chronic Qualifiers: Obesity type: unspecified obesity type Qualified Code(s): E66.01 - Morbid ( severe) obesity due to excess calories - Plan has diuresed well, will switch lasix to oral -: stool studies are -ve, may give imodium prn -: to ambulate as tolerated, no further fever, cultures are -ve, dc zosyn -: dc plan in am if stable -: continue asp, lipitor, coreg, zetia, lisinopril and oral lasix * . Review of Systems - Medications/Allergies Allergies/Adverse Reactions: Allergies Allergy/AdvReac Type Severity Reaction Status Date / Time No Known Allergies Allergy Verified 04/18/17 13:46 Medications: Current Medications Acetaminophen (Tylenol) 650 mg PO Q4H PRN PRN Reason: Headache/Fever/Mild Pain (1-3) Last Admin: 01/28/19 18:24 Dose: 650 mg Aspirin (Aspirin Chewable) 81 mg PO DAILY [facility] Last Admin: 01/30/19 09:32 Dose: 81 mg Atorvastatin Calcium (Lipitor) 80 mg PO HS [facility] Last Admin: 01/29/19 21:00 Dose: 80 mg Bisacodyl (Dulcolax) 10 mg [place] DAILYPRN PRN PRN Reason: Constipation Calcium Carbonate (Tums) 1,000 mg PO Q4H PRN PRN Reason: Heartburn or Indigestion Carvedilol (Coreg) 6.25 mg PO BID [facility] Last Admin: 01/30/19 09:32 Dose: 6.25 mg Ezetimibe (Zetia) 10 mg PO DAILY [facility] Last Admin: 01/30/19 09:32 Dose: 10 mg Enoxaparin Sodium (Lovenox) 40 mg SC 0900 [facility] Last Admin: 01/30/19 09:31 Dose: 40 mg Famotidine (Pepcid) 20 mg PO BID [facility] Last Admin: 01/30/19 09:32 Dose: 20 mg Fish Oil (Fish Oil) 1,000 mg PO BID [facility] Last Admin: 01/30/19 09:32 Dose: 1,000 mg Furosemide (Lasix) 40 mg SLOW IVP 0600,1400 [facility] Last Admin: 01/30/19 05:53 Dose: 40 mg Guaifenesin/Dextromethorphan (Robitussin Dm) 15 ml PO Q4H PRN PRN Reason: Cough Piperacillin Sod/Tazobactam (Sod 4.5 gm/ Sodium Chloride) 100 mls @ 200 mls/hr IVPB 0200,1000,1800 [facility] Last Admin: 01/30/19 09:33 Dose: 100 mls Lisinopril (Zestril) 2.5 mg PO DAILY [facility] Last Admin: 01/30/19 09:32 Dose: 2.5 mg Multivitamins (Theragran) 1 tab PO DAILY [facility] Last Admin: 01/30/19 09:32 Dose: 1 tab Ondansetron HCl (Zofran) 4 mg IVP Q6H PRN PRN Reason: Nausea/Vomiting Senna/Docusate Sodium (Senokot S) 2 tab PO BID PRN PRN Reason: Constipation Sodium Chloride (Flush - Normal Saline) 10 ml IVF Q12HR [facility] Last Admin: 01/30/19 09:33 Dose: 10 ml Sodium Chloride (Flush - Normal Saline) 10 ml IVF PRN PRN PRN Reason: Saline Flush Last Admin: 01/29/19 18:39 Dose: 10 ml
--- NOTE | 2019-01-30 13:34 | PQF ---
GA BONILLA, AILEEN RODRIGUES MD [phone] [facility]-285 [id number] CLINICAL DOCUMENTATION IMPROVEMENT CLARIFICATION FORM: ICD-10 Updated PLEASE DO AN ADDENDUM TO THE PROGRESS NOTE WITH ANY DOCUMENTATION UPDATES OR ADDITIONS AND CARRY THROUGH TO DC SUMMARY. THANK YOU. DATE: 01/30/2019 ATTN: DR. Thalia ENNIS Please exercise your independent, professional judgment in responding to the clarification form. Clinical indicators are provided on the bottom of this form for your review. 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 IMPRESSION: ELEVATED TROPONIN; RECOMMENDATIONS: I DO NOT FEEL THIS IS A CONTRIBUTOR TO HIS CURRENT MYRIAD OF SYMPTOMS. RISK: HX OF CAD W CABG (2016) (H & P) HX TOBACCO ABUSE (H & P) HX HTN (H & P) HX OBESITY (H & P) TREATMENT: CARDIOLOGY CONSULT TROPONIN I X 2 THANK YOU! [employer] (This form is maintained as a part of the permanent medical record) 2014 [email or web address], [employer]. All Rights Reserved [email or web address] [phone] MTDD
[2019-01-30] MEDS: Loperamide HCl 2 MG CAP PO PRN (15:20)
[2019-01-30] MEDS: Atorvastatin Calcium 40 MG TAB PO SCH (20:48)
[2019-01-31] MEDS ORDERED: Furosemide 40 MG TAB PO SCH (07:30)
[2019-01-31] MEDS: Fish Oil 1,000 MG CAP PO SCH (10:04)
[2019-01-31] MEDS: Carvedilol 6.25 MG TAB PO SCH (10:04)
[2019-01-31] MEDS: Lisinopril 2.5 MG TAB PO SCH (10:05)
[2019-01-31] MEDS: Ezetimibe 10 MG TAB PO SCH (10:05)
[2019-01-31] MEDS: Aspirin Chewable 81 MG TAB PO SCH (10:05)
[2019-01-31] MEDS: Multivit, Therapeutic 1 TAB PO SCH (10:05)
[2019-01-31] MEDS: Famotidine 20 MG TAB PO SCH (10:06)
[2019-01-31] MEDS: Enoxaparin Sodium 40 MG/0.4 ML SYRINGE SC SCH (10:07)
--- NOTE | 2019-01-31 10:33 | PDOC.PN ---
- Subjective Encounter Start Date: 01/31/19 Encounter Start Time: 08:30 Subjective: feels good, no diarrhea after taking imodium yest afternoon -: is amb with PT in hallway -: tolerating oral diet - Objective Resuscitation Status - Order Detail: 01/28/19 10:18 Resuscitation Status Routine Resuscitation Status: FULL: Full Resuscitation MAR Reviewed: Yes Vital Signs & Weight: Vital Signs (12 hours) Temp Pulse Resp BP BP Pulse Ox 01/31/19 10:05 77 01/31/19 10:04 126/86 01/31/19 07:30 97.9 F 77 18 126/86 97 01/31/19 03:21 97.8 F 69 20 141/59 H 98 Weight Admit Weight 231 lb 14.08 oz Weight 225 lb 15.581 oz I&O: 01/30/19 01/31/19 02/01/19 06:59 06:59 06:59 Intake Total 1600 1310 Output Total 1301 1100 Balance 299 210 Result Diagrams: 01/30/19 04:34 01/30/19 04:34 Phys Exam - Physical Examination HEENT: PERRLA, moist MMs Neck: no JVD, supple Respiratory: no wheezing, no rales Cardiovascular: RRR, no significant murmur Gastrointestinal: soft, non-tender, positive bowel sounds Musculoskeletal: pulses present, edema present Neurological: non-focal, moves all 4 limbs Psychiatric: normal affect, A&O x 3 Dx/Plan (1) Acute diarrhea Code(s): R19.7 - DIARRHEA, UNSPECIFIED Status: Resolved Comment: likely viral, resolved (2) Acute on chronic combined systolic (congestive) and diastolic (congestive) heart failure Code(s): I50.43 - ACUTE ON CHRONIC COMBINED SYSTOLIC AND DIASTOLIC HRT FAIL Status: Acute Comment: class B, ef of 45% (3) CAD (coronary artery disease) Code(s): I25.10 - ATHSCL HEART DISEASE OF [place] CORONARY ARTERY W/O ANG PCTRS Status: Chronic Qualifiers: Coronary Disease-Associated Artery/Lesion type: bypass graft [place] vs. transplanted heart: [place] heart Associated angina: without angina Qualified Code(s): I25.810 - Atherosclerosis of coronary artery bypass graft(s) without angina pectoris (4) Fever Code(s): R50.9 - FEVER, UNSPECIFIED Status: Resolved Qualifiers: Fever type: unspecified Qualified Code(s): R50.9 - Fever, unspecified Comment: unclear etiology, likely due to viral gastroenteritis (5) HTN (hypertension) Code(s): I10 - ESSENTIAL (PRIMARY) HYPERTENSION Status: Chronic Qualifiers: Hypertension type: essential hypertension Qualified Code(s): I10 - Essential (primary) hypertension (6) Hyponatremia Code(s): E87.1 - HYPO-OSMOLALITY AND HYPONATREMIA Status: Resolved (7) Obesity Code(s): E66.9 - OBESITY, UNSPECIFIED Status: Chronic Qualifiers: Obesity type: unspecified obesity type Qualified Code(s): E66.01 - Morbid ( severe) obesity due to excess calories - Plan hemostable -: may dc pt home -: is on asp, lipitor, coreg, zetia, fish oil, lisinopril and lasix * .
[2019-01-31 12:48] VITALS: BP 130/85; TEMP 97.5
[2019-01-31] MEDS: Loperamide HCl 2 MG CAP PO PRN (12:50)
--- NOTE | 2019-01-31 16:25 | DIS ---
DATE OF ADMISSION: 01/28/2019 DATE OF DISCHARGE: 01/31/2019 DISCHARGE DISPOSITION: Home. PRIMARY DISCHARGE DIAGNOSES: 1. Acute diarrhea, likely viral. Initial suspicion for sepsis secondary to above. 2. Acute on chronic congestive heart failure exacerbation with systolic dysfunction and ejection fraction of around 45%. 3. Coronary artery disease with prior bypass. 4. Hypertension. 5. Hyponatremia. 6. Obesity. PROCEDURES DONE DURING HOSPITALIZATION: Echo with 2D Doppler done showed EF of 45% to 50%, moderate mitral regurgitation was seen. Ultrasound venous Doppler of both lower extremities done showed no evidence of DVT. 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 Blood cultures x2, no growth. Stool for C. diff, Campylobacter, Shiga toxin were all negative. Respiratory virus panel PCR was negative. Hemoglobin and hematocrit of 13 and 40, platelet count 119. Total cholesterol 145, triglycerides 151, LDL 78, HDL 37, TSH 1.60. Troponin I was indeterminate, peaking up to 0.09. INPATIENT CONSULT: Dr. Baumann for Cardiology. DISCHARGE MEDICATIONS: The patient to continue: 1. Aspirin 81 mg p.o. daily. 2. Multivitamin one tablet once daily. 3. Vitamin C 500 mg p.o. daily. 4. Super B Complex 150 mg daily. 5. Atorvastatin 80 mg p.o. at bedtime. 6. Coreg 6.25 mg twice daily. 7. Zetia 10 mg p.o. daily. 8. Fish oil 1000 mg twice daily. 9. Lasix 40 mg daily. 10. Lisinopril 5 mg daily. ALLERGIES: NO KNOWN DRUG ALLERGIES. DISCHARGE PLAN: The patient to follow up with Dr. Silver as advised and primary care physician in 1 week. BRIEF COURSE DURING HOSPITALIZATION: He initially went to [facility] with complaints of feeling weak and unable to ambulate at home. He has had preliminary workup there done, which showed CHF exacerbation with systolic dysfunction. The patient overnight developed severe diarrhea and also developed temperature of 102. He was initially under observation status and had to be switched over to inpatient status for complete workup. Two sets of blood cultures were negative. Stool tests were also negative for any infectious etiology. CT of abdomen and pelvis did not reveal any acute abdomen. The patient was gently diuresed during his stay, and his medications were optimized. He has had consultation with Dr. Baumann and Dr. Silevr during his stay here. Prior to discharge, he has ambulated in the hallway. His diarrhea has completely stopped after taking a dose of Imodium yesterday afternoon. He is tolerating oral solid diet and is wanting to go home today. Please see a [id number] documentation for the day of discharge on [facility]. Job ID: [id number] MTDD
== END 2019-01-31 13:10 | disposition home or self-care (01) | DRG 280 ==
LOC: ERS 04:54 → 2NO 07:09 → OBSVTOIN 17:12
PROVIDERS: ADMIT Internal Medicine; ATTEND Internal Medicine
DX: I21.A1 Myocardial infarction type 2 (principal); I50.43 Acute on chronic combined systolic (congestive) and diastolic (congestive) heart failure; A41.89 Other specified sepsis; E87.1 Hypo-osmolality and hyponatremia; E87.2 Acidosis; K55.1 Chronic vascular disorders of intestine; I11.0 Hypertensive heart disease with heart failure; I25.10 Atherosclerotic heart disease of native coronary artery without angina pectoris; E66.9 Obesity, unspecified; E78.5 Hyperlipidemia, unspecified; R19.7 Diarrhea, unspecified; E66.01 Morbid (severe) obesity due to excess calories; Z95.1 Presence of aortocoronary bypass graft; Z90.49 Acquired absence of other specified parts of digestive tract; Z79.899 Other long term (current) drug therapy; Z79.82 Long term (current) use of aspirin; Z68.35 Body mass index [BMI] 35.0-35.9, adult; Z87.891 Personal history of nicotine dependence
CPT/HCPCS: 36415; 74177; 80048; 80053; 80061; 81001; 84443; 85025; 87040; 87045; 87046; 87081; 87324; 87449; 87633; 87899; 93306; 93798; 93970; 99285; J1650; J1940; J2543; J3490; Q9967

== ENCOUNTER 2019-02-21 11:56 | Outpatient (CLI) | payer MEDICARE, BC ==
[~2019-02-21 11:56] MED LIST: Sodium Chloride 0.9% 15 ML NEB ONE
--- NOTE | 2019-02-22 00:39 | HP ---
HISTORY OF PRESENT ILLNESS: Mr. Magan Dubois is a very pleasant 68-year-old gentleman who presents to the [facility] for evaluation of a wound between the fourth and fifth digits of the right foot. The patient's states that Mr. Dubois fell and suffered a laceration between the fourth and fifth toes approximately 3 to 4 weeks ago. She states that the laceration was repaired with the placement of 3 sutures. She states that these sutures were subsequently discontinued. She states that the patient suffered a second fall, and the laceration between the fourth and fifth digits reopened. She states that the wound was closed again with sutures, specifically 6 interrupted sutures. The sutures were subsequently discontinued by the patient's nurse practitioner, Elisha Marquez. At a follow-up visit, the patient was placed on a course of p.o. antibiotics. At the second follow-up visit yesterday, the patient was referred to the [facility]ound Center for further evaluation and treatment. PAST MEDICAL HISTORY: 1. Coronary artery disease. 2. Peripheral vascular disease. 3. Hypertension. 4. Chronic thrombocytopenia. 5. Degenerative joint disease. 6. Congestive heart failure. PAST SURGICAL HISTORY: 1. Cholecystectomy. 2. Laminectomy. 3. Coronary artery bypass grafting x1. 4. Cataract surgery, bilateral. MEDICATIONS: 1. Vitamins C. 2. Vitamin D. 3. Multivitamin. 4. Coreg. 5. Lisinopril. 6. Atorvastatin. 7. Lasix. 8. Aspirin 81 mg. 9. Zetia. 10. Fish oil. 11. Bactrim DS. ALLERGIES: NO KNOWN DIAGNOSED ALLERGIES. SOCIAL HISTORY: Social history is significant for tobacco use of 1 pack of cigarettes per day for 20 to 30 years. The patient admits to the social consumption of alcohol in the past. FAMILY HISTORY: Family history is significant for diabetes mellitus and coronary artery disease. The patient states that his mother was diagnosed with both diabetes mellitus and coronary artery disease. PHYSICAL EXAMINATION: VITAL SIGNS: Temperature 97.9, pulse 70, respirations 18, blood pressure 139/ 62. GENERAL: A 68-year-old gentleman, lying on table in examination room, in no acute distress. HEENT: Normocephalic, atraumatic. NECK: No nuchal rigidity. CHEST: Clear to auscultation. CARDIOVASCULAR: Regular rate and rhythm. ABDOMEN: Soft. EXTREMITIES: A wound of the right foot between the fourth and fifth toes is present. The dimensions of the wound are approximately 2.0 x 1.0 cm. Granulation tissue is present within the wound margins. No grossly purulent drainage is associated with the wound. Erythema of the skin surrounding the wound is present and extends over the dorsum of the right foot over the lateral aspect of the foot. The patient also has erythema of the right lower leg. A sample of tissue within the wound margins was excised with the use of scissors and sent for aerobic and anaerobic cultures. A bone fragment was also encountered within the wound margins while excising soft tissue for aerobic and anaerobic cultures. NEUROLOGIC: Grossly nonfocal. ASSESSMENT AND PLAN: 1. Wound of right foot between the fourth and fifth digits. As stated above, a bone fragment was noted within the wound margins on exam today. I have recommended to the patient and his admission to [facility] for the administration of IV antibiotics and imaging to look for findings suggestive of osteomyelitis. The patient and his understand and are in agreement with the preceding treatment plan. I have also discussed the treatment plan with Dr. Evangelista Miranda in the [facility]. 2. Coronary artery disease. 3. Peripheral vascular disease. 4. Hypertension. 5. Chronic thrombocytopenia. 6. Degenerative joint disease. 7. Congestive heart failure. Job ID: [id number] MTDD
== END 2019-02-21 11:57 | disposition home or self-care (01) ==
LOC: WCC 11:56
PROVIDERS: ATTEND Family Medicine
DX: S91.301D Unspecified open wound, right foot, subsequent encounter (principal); L03.119 Cellulitis of unspecified part of limb
CPT/HCPCS: 87070; 87205

== ENCOUNTER 2019-02-21 12:34 | Inpatient (IN) | payer MEDICARE, BC ==
[2019-02-21] MEDS ORDERED: Piperacillin/Tazobactam 4.5 GM VIAL ONE (14:15)
[2019-02-21 14:23] LABS: #Basophils 0.1 thou/uL (0.0-0.2); #Eosinphils 0.7 thou/uL (0.0-0.7); #Lymphocytes 1.6 thou/uL (1.20-3.40); #Monocytes 1.3 thou/uL (0.11-0.59); #Neutrophils 9.4 thou/uL (1.40-6.50); %Basophils 0.6 % (0.0-1.0); %Eosinophils 5.3 % (0.0-10.0); %Lymphocytes 12.4 % (21.0-51.0); %Monocytes 9.6 % (0.0-10.0); Hemoglobin 12.6 g/dL (14.0-18.0); Mean Corpuscular HGB CONC 34.6 g/dL (32.0-36.0); Mean Corpuscular Hemoglobin 31.7 pg (27.0-31.0); Mean Corpuscular Volume 91.7 fL (78.0-98.0); Mean Platelet Volume 8.6 fL (7.4-10.4); Platelet Count 226 thou/uL (130-400); RBC Distribution Width 12.1 % (11.5-14.5); Red Blood Cell (RBC) Count 3.97 mill/uL (4.70-6.10)
[2019-02-21] MEDS ORDERED: Acetaminophen 325 MG TAB PO PRN (14:37)
[2019-02-21] MEDS ORDERED: Senokot S 8.6-50 MG TAB PO PRN (14:37)
[2019-02-21] MEDS ORDERED: Dextrose 50% Abboject 50 ML SYRINGE SLOW IVP PRN (14:37)
[2019-02-21] MEDS ORDERED: Dextrose 5% in Water 1,000 ML IV PRN (14:37)
[2019-02-21] MEDS ORDERED: Bisacodyl 10 MG SUPP PR PRN (14:37)
[2019-02-21] MEDS ORDERED: Guaifenesin DM 100-10/5 ML UDCUP PO PRN (14:37)
[2019-02-21] MEDS ORDERED: HumaLOG 300 UNITS/3 ML VIAL SC PRN ×2 (14:37)
[2019-02-21] MEDS ORDERED: Ondansetron PF 4 MG/2 ML Vial IVP PRN (14:37)
[2019-02-21 14:47] LABS: ALT (SGPT) 46 U/L (8-55); AST (SGOT) 38 U/L (5-34); Albumin 3.7 g/dL (3.4-4.8); Alkaline Phosphatase 85 U/L (40-150); Anion Gap 16 mmol/L (10-20); BUN (Urea Nitrogen) 22 mg/dL (8.4-25.7); Bilirubin, Total 0.4 mg/dL (0.2-1.2); Calc. Creatinine Clearance 0 mL/min (70-130); Calcium 9.3 mg/dL (7.8-10.44); Carbon Dioxide 22 mmol/L (23-31); Chloride 101 mmol/L (98-107); Estimated GFR-MDRD 60; Globulin 4.1 g/dL (2.4-3.5); Glucose 92 mg/dL (80-115); Potassium 4.8 mmol/L (3.5-5.1); Protein, Total 7.8 g/dL (5.8-8.1); Sodium 134 mmol/L (136-145)
--- NOTE | 2019-02-21 15:07 | RAD ---
RIGHT FOOT 3 VIEWS: Date: 02/21/19 HISTORY: Foot wound with pain. Concern for osteomyelitis. FINDINGS: There are arthritic changes of the foot. There is prominent calcaneal spur formation. There are no si gns of fracture or any plain film evidence of osteomyelitis. IMPRESSION: No plain film evidence for osteomyelitis. POS: TPC
[2019-02-21 16:08] LABS: Bilirubin Negative (Negative); Blood, Urine Negative (Negative); Glucose, Urine (Dipstick) Negative (Negative); Leukocyte Negative (Negative); Nitrite Negative (Negative); Protein, Urine (Dipstick) Negative (Neg-Trace); Urobilinogen 0.2 mg/dL (0.2-1.0)
[2019-02-21 16:17] LABS: Clarity Clear (Clear)
[2019-02-21 17:15] VITALS: BMI 36.0
--- NOTE | 2019-02-21 17:23 | CON ---
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 He lives in [place]. He injured his right small toe several weeks ago and presents to the emergency room. He has been evaluated by the emergency room physician and hospitalist service, admitted to the hospital. I have been asked to see him regarding severe infection in his right small toe, he is nondiabetic. He has cellulitis extending up over the dorsum of his foot to his lower half of his right leg. He has palpable pulses. The patient has had an x-ray revealing soft tissue swelling. Evaluation reveals there is open wound in the metatarsophalangeal joint. Plan is to remove the right small toe and metatarsal tonight. Risks and benefits explained. He consents healing by secondary intention plan with wound VAC application, conversion outpatient eventually. ALLERGIES: NONE. SOCIAL HISTORY: Tobacco, none. Alcohol, none. MEDICATIONS: 1. Vitamin B complex. 2. Robertson-3. 3. Multivitamin. 4. Lisinopril 5 mg a day. 5. Furosemide 40 mg a day. 6. Fish oil daily. 7. Zetia 10 mg a day. 8. Coreg 6.25 mg b.i.d. 9. Lipitor 80 mg at bedtime. 10. Aspirin 81 mg a day. 11. Ascorbic acid 500 mg daily. PAST SURGICAL HISTORY: Laparoscopic cholecystectomy. Dr. Herrera performed coronary artery bypass grafting in November 2015, bypass one vessel, saphenous vein graft to LAD. He was noted to have LVH. Dr. Washburn in September 2015, performed an L4-L5 laminectomy and arthrodesis. The patient had 3 cardiac stents prior to his bypass. He has had cataract surgery. PAST MEDICAL HISTORY: No diabetes. He has dyslipidemia, hypertension, and obesity. He has had a colonoscopy. He had a liver biopsy in April 2013. He had micro, microvesicular steatosis with cholestasis. Echocardiogram in January 2019, 45% to 50% ejection fraction. Cardiac valve sclerotic, mild mitral regurg, depressed LV function. PHYSICAL EXAMINATION: HEAD, EARS, EYES, NOSE AND THROAT: Unremarkable. LUNGS: Clear to auscultation. CARDIAC: Regular rate and rhythm without murmur or gallop. ABDOMEN: Soft, obese, nontender. EXTREMITIES: Ankle edema, right. He has palpable pedal pulses. He has cellulitis of the right small toe, dorsum of foot to the distal half of the lower leg, streaking up the anterior leg. LABORATORY DATA: White count is 13 and hemoglobin 12.6. BUN 22, creatinine 1.2, sodium 134, and bilirubin 0.4. ASSESSMENT AND PLAN: 1. Cellulitis, right foot with severe injury in the right small toe and severe infection with an open wound extending to metatarsophalangeal joint. We would recommend amputation of the right small toe and metatarsal phalangeal joint with healing by secondary intention. He understands risks and benefits, and we will plan that tonight as an emergency. He last ate at 7:30 this morning, it is now 4 p.m., it should be safe from n.p.o. status, but this is an emergency. 2. Coronary artery disease, stable. 3. Morbid obesity. 4. Hypertension. Job ID: [id number]
[2019-02-21] MEDS: Piperacillin/Tazobactam 3.375 GM in Sodium Chloride 0.9% 100 ML IVPB SCH ×2 (17:25→22:30)
--- NOTE | 2019-02-21 17:26 | HP ---
REASON FOR ADMISSION: Right foot osteomyelitis. HISTORY OF PRESENTING ILLNESS: The patient gives history of having had a fall a month back and injuring his right 4th and 5th interdigital cleft area. He had gone to [facility], where he had suturing done for the same. A week back, the patient fell in the restroom and was found to have low sodium. Also this wound in the right foot split open. From then on, the skin is getting irritated and this started to swell up. There is also some redness in the area. Finally, they went to see Dr. Sewell this morning. There was some suspicion about bone fragments when she tried to probe the wound and was asked to get hospitalized for possible osteomyelitis. No complaints of fever as such at home. He normally ambulates minimally in the house. PAST MEDICAL AND SURGICAL HISTORY: History of CHF with EF of 45% to 50% and diastolic dysfunction, coronary artery disease with prior history of CABG, hypertension, dyslipidemia, obesity, had one-vessel CABG done in November of 2015, three prior cardiac stents, cataract surgery, lumbar spine surgery, and cholecystectomy. PERSONAL HISTORY: Quit smoking more than 15 years ago. Does not abuse alcohol or drugs. FAMILY HISTORY: Mother at the age of 62 years, she has had history of coronary artery disease and diabetes. Father at the age of 83 years. CURRENT MEDICATIONS: 1. Aspirin 81 mg p.o. daily. 2. Vitamin C 500 mg p.o. daily. 3. Multivitamin one tab daily. 4. Fish oil 1000 mg p.o. twice daily. 5. Atorvastatin 80 mg p.o. at bedtime. 6. Carvedilol 6.25 mg twice daily. 7. Zetia 10 mg p.o. daily. 8. Lasix 40 mg p.o. daily. 9. Lisinopril 5 mg p.o. daily. ALLERGIES: NO KNOWN DRUG ALLERGIES. CODE STATUS: Full. Power of attorney at law is his . REVIEW OF SYSTEMS: CONSTITUTIONAL: Negative for weight loss or gain, ability to conduct usual activities. SKIN: Negative for rash, itching. EYES: Negative for double vision, pain. ENT/MOUTH: Negative for nose bleeding, neck stiffness, pain, tenderness. CARDIOVASCULAR: Negative for palpitations, dyspnea on exertion, orthopnea. RESPIRATORY: Negative for shortness of breath, wheezing, cough, hemoptysis, fever or night sweats. GASTROINTESTINAL: Negative for poor appetite, abdominal pain, heartburn, nausea , vomiting, constipation, or diarrhea. GENITOURINARY: Negative for urgency, frequency, dysuria, nocturia. MUSCULOSKELETAL: Negative for pain, swelling. NEUROLOGIC/PSYCHIATRIC: Negative for anxiety, depression. ALLERGY/IMMUNOLOGIC: Negative for skin rash, bleeding tendency. PHYSICAL EXAMINATION: GENERAL: The patient is a 68-year-old male, who is currently not in any acute distress. VITAL SIGNS: Blood pressure 132/56, pulse 72 per minute, respiratory rate 16 per minute, temperature 97.8 degrees Fahrenheit, saturating 100% on room air. NECK: Supple. No elevated JVD. HEENT: Eyes; extraocular muscles are intact. Pupils reacting to light. Oral cavity, mucous membranes are moist. No exudates or congestion. CARDIOVASCULAR: S1 and S2 heard, regular rhythm. RESPIRATORY SYSTEM: Air entry 1+ bilateral. No rales or rhonchi. ABDOMEN: Soft. Bowel sounds heard. No tenderness, rigidity, or guarding. EXTREMITIES: Chronic edema, 1+ bilateral. Has macerated skin with ulceration between the 4th and 5th toe on the right in the interdigital cleft. There is erythema to the dorsum of the foot. This is on the right side. The peripheral pulses are 1+ bilateral. No other ulcerations or gangrene. CENTRAL NERVOUS SYSTEM: No gross focal deficits noted. The patient is alert, awake, and oriented well. PSYCHIATRIC SYSTEM: The patient's mood is euthymic. No hallucinations or delusions. LABORATORY DATA: Right foot three-view x-ray done shows no plain film evidence for osteomyelitis, the prominent calcaneal spur formation. There are no fracture seen. BUN is 22, creatinine 1.2, serum bicarb 22, AST 38, ALT 46, alkaline phosphatase 85, albumin is 3.7. CRP 7.97. White count of 13, H and H 12 and 36, platelet count is 226, MCV is 91 with 72% neutrophils. CLINICAL IMPRESSION AND PLAN: The patient will be admitted to medical floor for suspected right foot osteomyelitis. I have spoken to Dr. Allen, who will be evaluating the patient in the ER. Likely, he will need debridement of the area. We will obtain wound cultures and place him on vancomycin and Zosyn. Will gently hydrate wth normal saline at 50 mL per hour. The patient will be kept n.p.o. for possible debridement. We will continue his Coreg, lisinopril, multivitamin, fish oil, Zetia, Lipitor, aspirin, vitamin C as before. Job ID: [id number] [facility]
[2019-02-21] MEDS: Sodium Chloride 0.9% 1,000 ML IV SCH (21:24)
[2019-02-21] MEDS: Ibuprofen 200 MG TAB PO SCH (22:02)
[2019-02-21] MEDS: Carvedilol 6.25 MG TAB PO SCH (22:02)
[2019-02-21] MEDS: Famotidine 20 MG TAB PO SCH (22:03)
[2019-02-21] MEDS: Atorvastatin Calcium 40 MG TAB PO SCH (22:03)
[2019-02-21] MEDS: Fish Oil 1,000 MG CAP PO SCH (22:04)
[2019-02-22] MEDS: Vancomycin HCl 1 GM in Premix Bag 1 BAG IVPB SCH ×2 (02:47→15:38)
[2019-02-22] MEDS: Piperacillin/Tazobactam 3.375 GM in Sodium Chloride 0.9% 100 ML IVPB SCH ×3 (06:10→22:33)
[2019-02-22 06:46] LABS: #Eosinphils 0.5 thou/uL (0.0-0.7); #Lymphocytes 1.3 thou/uL (1.20-3.40); #Monocytes 1.2 thou/uL (0.11-0.59); #Neutrophils 8.1 thou/uL (1.40-6.50); %Basophils 0.3 % (0.0-1.0); %Eosinophils 4.5 % (0.0-10.0); %Monocytes 10.7 % (0.0-10.0); %Neutrophils 72.5 % (42.0-75.0); Hemoglobin 11.2 g/dL (14.0-18.0); Mean Corpuscular HGB CONC 34.5 g/dL (32.0-36.0); Mean Corpuscular Hemoglobin 31.6 pg (27.0-31.0); Mean Corpuscular Volume 91.6 fL (78.0-98.0); Mean Platelet Volume 8.1 fL (7.4-10.4); Platelet Count 181 thou/uL (130-400); Red Blood Cell (RBC) Count 3.55 mill/uL (4.70-6.10); White Blood Cell (WBC) Count 11.1 thou/uL (4.8-10.8)
[2019-02-22 07:00] LABS: Anion Gap 14 mmol/L (10-20); BUN (Urea Nitrogen) 16 mg/dL (8.4-25.7); Calc. Creatinine Clearance 111 mL/min (70-130); Calcium 8.6 mg/dL (7.8-10.44); Carbon Dioxide 20 mmol/L (23-31); Chloride 104 mmol/L (98-107); Estimated GFR-MDRD 80; Glucose 87 mg/dL (80-115); Potassium 4.5 mmol/L (3.5-5.1); Sodium 133 mmol/L (136-145)
[2019-02-22] MEDS: Ascorbic Acid 500 mg Chewable Tablet PO SCH (08:42)
[2019-02-22] MEDS: Ibuprofen 200 MG TAB PO SCH ×2 (08:42→19:00)
[2019-02-22] MEDS: Famotidine 20 MG TAB PO SCH ×2 (08:42→21:36)
[2019-02-22] MEDS: Ezetimibe 10 MG TAB PO SCH (08:42)
[2019-02-22] MEDS: Aspirin 81 mg Enteric Coated Tablet PO SCH (08:42)
[2019-02-22] MEDS: Fish Oil 1,000 MG CAP PO SCH ×2 (08:42→21:36)
[2019-02-22] MEDS: Enoxaparin Sodium 40 MG/0.4 ML SYRINGE SC SCH (08:42)
[2019-02-22] MEDS: Multivitamin W/ Minerals 1 TAB PO SCH (08:43)
[2019-02-22] MEDS ORDERED: Prevnar 13-Val Conj/PF 0.5 ML SYRINGE IM ONE (09:00)
[2019-02-22] MEDS: Lisinopril 5 MG TAB PO SCH (10:31)
[2019-02-22] MEDS: Carvedilol 6.25 MG TAB PO SCH ×2 (10:39→18:00)
[2019-02-22] MEDS: Sodium Chloride 0.9% 1,000 ML IV SCH (10:40)
[2019-02-22] MEDS ORDERED: Ondansetron PF 4 MG/2 ML Vial ONE (11:04)
[2019-02-22] MEDS ORDERED: Lidocaine 1% PF 5 ML VIAL ONE (11:04)
[2019-02-22] MEDS ORDERED: ePHEDrine 50 MG/ML VIAL ONE (11:04)
[2019-02-22] MEDS ORDERED: PHENYLEPHRINE-NS 100 MCG/ML 10 ML SYRINGE ONE (11:04)
[2019-02-22] MEDS ORDERED: PROPOFOL 200 MG/20 ML VIAL ONE (11:04)
[2019-02-22] MEDS ORDERED: Glycopyrrolate 0.2 MG/ML 5 ML SYRINGE ONE (11:04)
--- NOTE | 2019-02-22 11:37 | PDOC.PN ---
- Subjective Encounter Start Date: 02/22/19 Encounter Start Time: 10:36 Subjective: Admitted with right small toe wound, cellulitis and osteomyelitis -: Developed wound after a fall few weeks ago. -: For amputaion today - Objective Resuscitation Status - Order Detail: 02/21/19 14:28 Resuscitation Status Routine Resuscitation Status: FULL: Full Resuscitation Vital Signs & Weight: Vital Signs (12 hours) Temp Pulse Resp BP BP Pulse Ox 02/22/19 10:39 124/57 L 02/22/19 10:31 77 02/22/19 07:00 97.8 F 77 14 100/49 L 97 02/22/19 03:42 98.4 F 02/21/19 23:46 99.9 F H 74 20 127/53 L 99 Weight Weight 230 lb I&O: 02/21/19 02/22/19 02/23/19 06:59 06:59 06:59 Intake Total 762 Output Total 600 Balance 162 Result Diagrams: 02/22/19 06:25 02/22/19 06:25 Additional Labs: Accuchecks 02/22/19 02/21/19 06:18 21:30 POC Glucose 91 96 Phys Exam - Physical Examination obese HEENT: moist MMs Neck: supple Respiratory: no rales, no rhonchi fair air entry bilaterally Cardiovascular: RRR, no significant murmur Gastrointestinal: soft, non-tender, no distention, positive bowel sounds obese mild bilateral leg edema. right foot covered with dressing Neurological: non-focal, moves all 4 limbs Psychiatric: normal affect, A&O x 3 Dx/Plan (1) Chronic combined systolic (congestive) and diastolic (congestive) heart failure Code(s): I50.42 - CHRONIC COMBINED SYSTOLIC AND DIASTOLIC HRT FAIL Status: Acute (2) JED (acute kidney injury) Code(s): N17.9 - ACUTE KIDNEY FAILURE, UNSPECIFIED Status: Acute (3) Osteomyelitis Code(s): M86.9 - OSTEOMYELITIS, UNSPECIFIED Status: Acute (4) Cellulitis Code(s): L03.90 - CELLULITIS, UNSPECIFIED Status: Acute (5) CAD (coronary artery disease) Code(s): I25.10 - ATHSCL HEART DISEASE OF [place] CORONARY ARTERY W/O ANG PCTRS Status: Chronic Qualifiers: Coronary Disease-Associated Artery/Lesion type: bypass graft [place] vs. transplanted heart: [place] heart Associated angina: without angina Qualified Code(s): I25.810 - Atherosclerosis of coronary artery bypass graft(s) without angina pectoris (6) HTN (hypertension) Code(s): I10 - ESSENTIAL (PRIMARY) HYPERTENSION Status: Chronic Qualifiers: Hypertension type: essential hypertension Qualified Code(s): I10 - Essential (primary) hypertension (7) Obesity Code(s): E66.9 - OBESITY, UNSPECIFIED Status: Chronic Qualifiers: Obesity type: unspecified obesity type (8) Hyponatremia Code(s): E87.1 - HYPO-OSMOLALITY AND HYPONATREMIA Status: Resolved - Plan Continue antibiotics. -: Awaiting surgery/toe amputation. -: Will follow cultures. -: Monitor electrolytes/serum sodium. -: Change ibuprofen to prn * .
[2019-02-22] MEDS ORDERED: traMADol HCl 50 MG TAB PO PRN (11:50)
[2019-02-22] MEDS ORDERED: Sodium Chloride 0.9% 100 ML ONE (12:02)
[2019-02-22] MEDS ORDERED: Piperacillin/Tazobactam 3.375 GM VIAL ONE (12:02)
[2019-02-22] MEDS ORDERED: Famotidine/PF 20 mg/2ml Vial ONE (12:04)
[2019-02-22] MEDS ORDERED: PROPOFOL 20 ML ONE (12:04)
[2019-02-22] MEDS ORDERED: Fentanyl 100 MCG/2 ML VIAL ONE (12:04)
[2019-02-22] MEDS ORDERED: Propofol 500 MG/50 ML VIAL ONE (12:04)
[2019-02-22] MEDS ORDERED: Ondansetron HCl/PF 4 MG/2 ML Vial IVP PRN (12:55)
[2019-02-22] MEDS: HYDROcodone/Acetaminophen 5/325 mg Tablet PO PRN (14:24)
--- NOTE | 2019-02-22 16:57 | OP ---
DATE OF PROCEDURE: 02/22/2019 PREOPERATIVE DIAGNOSES: Infection, right foot with osteomyelitis and wound involving the metatarsophalangeal joint of fifth toe with a deep web space wound and cellulitis of the foot and leg. POSTOPERATIVE DIAGNOSES: Infection, right foot with osteomyelitis and wound involving the metatarsophalangeal joint of fifth toe with a deep web space wound and cellulitis of the foot and leg. PROCEDURES PERFORMED: Amputation of right small toe and metatarsal, wound left open for healing by secondary intention. Excellent bleeding. Wound care team arrived to place a wound VAC. ANESTHESIA: TIVA. DESCRIPTION OF PROCEDURE: The patient was taken to the operating room, where under intravenous sedation, right foot was prepared with Betadine and draped in routine fashion. The patient had a deep wound opening to the metatarsophalangeal joint of the right fifth toe in the webspace between the fourth and fifth toes. A racquet incision was made for amputation of the right fifth toe and metatarsal carried down to skin, subcutaneous tissue, and bone, and transected with a bone cutter and resected proximally with the rongeurs. Wound irrigated, connective tissue debrided sharply. Good hemostasis obtained with cautery. There was excellent bleeding. Wound care team arrived to place a wound VAC. Job ID: [id number]
[2019-02-22] MEDS ORDERED: Ibuprofen 200 MG TAB PO PRN (17:41)
[2019-02-22] MEDS: Atorvastatin Calcium 40 MG TAB PO SCH (21:35)
[2019-02-23] MEDS: Acetaminophen 500 MG TAB PO PRN (00:50)
[2019-02-23 02:20] LABS: Vancomycin, Trough 15.6 ug/mL
[2019-02-23] MEDS: Vancomycin HCl 1 GM in Premix Bag 1 BAG IVPB SCH ×2 (02:36→15:20)
[2019-02-23] MEDS: Piperacillin/Tazobactam 3.375 GM in Sodium Chloride 0.9% 100 ML IVPB SCH ×2 (06:36→13:44)
[2019-02-23] MEDS: Fish Oil 1,000 MG CAP PO SCH ×2 (07:48→20:57)
[2019-02-23] MEDS: Famotidine 20 MG TAB PO SCH ×2 (07:48→20:57)
[2019-02-23] MEDS: Multivitamin W/ Minerals 1 TAB PO SCH (07:49)
[2019-02-23] MEDS: Ascorbic Acid 500 mg Chewable Tablet PO SCH (09:13)
[2019-02-23] MEDS: Carvedilol 6.25 MG TAB PO SCH ×2 (09:49→16:17)
[2019-02-23] MEDS: Ezetimibe 10 MG TAB PO SCH (09:50)
[2019-02-23] MEDS: Lisinopril 5 MG TAB PO SCH (09:50)
[2019-02-23] MEDS: Aspirin 81 mg Enteric Coated Tablet PO SCH (09:50)
[2019-02-23] MEDS: Enoxaparin Sodium 40 MG/0.4 ML SYRINGE SC SCH ×2 (09:52→10:57)
--- NOTE | 2019-02-23 11:01 | PDOC.PN ---
- Subjective Encounter Start Date: 02/23/19 Encounter Start Time: 10:59 Subjective: Feeling better. No fever. Pain has subsided. - Objective Resuscitation Status - Order Detail: 02/21/19 14:28 Resuscitation Status Routine Resuscitation Status: FULL: Full Resuscitation Vital Signs & Weight: Vital Signs (12 hours) Temp Pulse Resp BP BP Pulse Ox 02/23/19 09:50 65 138/58 L 02/23/19 09:49 138/58 L 02/23/19 07:00 97.4 F L 66 16 95/48 L 92 L 02/22/19 23:00 98.4 F 76 20 127/58 L Weight Admit Weight 230 lb Weight 230 lb I&O: 02/22/19 02/23/19 02/24/19 06:59 06:59 06:59 Intake Total 762 1550 Output Total 600 1400 400 Balance 162 150 -400 Result Diagrams: 02/22/19 06:25 02/22/19 06:25 Additional Labs: Accuchecks 02/23/19 02/22/19 06:43 16:10 POC Glucose 116 H 107 Phys Exam - Physical Examination Constitutional: NAD obese HEENT: moist MMs Neck: no JVD, supple Respiratory: no rales, no rhonchi, clear to auscultation bilateral Cardiovascular: RRR, no significant murmur Gastrointestinal: soft, non-tender, no distention, positive bowel sounds obese Right foot covered with dressing. Wound vac noted. Other limbs are normal, Neurological: non-focal, moves all 4 limbs Psychiatric: A&O x 3 Dx/Plan (1) Osteomyelitis Code(s): M86.9 - OSTEOMYELITIS, UNSPECIFIED Status: Acute Comment: S/p right small toe amputation. (2) JED (acute kidney injury) Code(s): N17.9 - ACUTE KIDNEY FAILURE, UNSPECIFIED Status: Acute Comment: Resolving. (3) Chronic combined systolic (congestive) and diastolic (congestive) heart failure Code(s): I50.42 - CHRONIC COMBINED SYSTOLIC AND DIASTOLIC HRT FAIL Status: Acute (4) Cellulitis Code(s): L03.90 - CELLULITIS, UNSPECIFIED Status: Acute (5) CAD (coronary artery disease) Code(s): I25.10 - ATHSCL HEART DISEASE OF [place] CORONARY ARTERY W/O ANG PCTRS Status: Chronic Qualifiers: Coronary Disease-Associated Artery/Lesion type: bypass graft [place] vs. transplanted heart: [place] heart Associated angina: without angina Qualified Code(s): I25.810 - Atherosclerosis of coronary artery bypass graft(s) without angina pectoris (6) HTN (hypertension) Code(s): I10 - ESSENTIAL (PRIMARY) HYPERTENSION Status: Chronic Qualifiers: Hypertension type: essential hypertension Qualified Code(s): I10 - Essential (primary) hypertension (7) Obesity Code(s): E66.9 - OBESITY, UNSPECIFIED Status: Chronic Qualifiers: Obesity type: unspecified obesity type (8) Hyponatremia Code(s): E87.1 - HYPO-OSMOLALITY AND HYPONATREMIA Status: Resolved Comment: Resolved. - Plan Continue current treatments. -: For discharge once cleared by Ortho. * .
[2019-02-23] MEDS: HYDROcodone/Acetaminophen 5/325 mg Tablet PO PRN (12:44)
[2019-02-23] MEDS: traMADol HCl 50 MG TAB PO PRN (16:15)
[2019-02-23] MEDS: Atorvastatin Calcium 40 MG TAB PO SCH (20:56)
[2019-02-23] MEDS: Clindamycin 150 MG CAP PO SCH (22:14)
--- NOTE | 2019-02-24 00:39 | CON ---
DATE OF CONSULTATION: 02/23/2019 REASON FOR CONSULTATION: Foot infection. HISTORY OF PRESENT ILLNESS: A 68-year-old with a history of ischemic cardiomyopathy, prior coronary artery bypass graft surgery, who sustained a fall one month prior to admission with knee injury to the right 4th and 5th digital area. He had a laceration and sutures were accomplished at [facility]. Subsequently, he fell and the wound in the right foot split open and developed inflammatory changes. He was referred to Dr. Sewell and because of concerns with possible bone fragments, he was advised to be admitted for management. Currently, he denies any headaches. No visual symptoms, sore throat, odynophagia, dysphagia. No cough, sputum production, or chest pain. No abdominal pain or diarrhea. He does not have pain in the feet area. 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 SOCIAL HISTORY: Former smoker, quit many years ago. FAMILY HISTORY: Coronary artery disease and type 2 diabetes. ALLERGIES: NONE. CURRENT MEDICATIONS: 1. Tylenol. 2. Vitamin C. 3. Ecotrin. 4. Lipitor. 5. Dulcolax. 6. Coreg. 7. Zetia. 8. Pepcid. 9. Fish oil. 10. Glucagon. 11. Motrin. 12. Lisinopril. 13. Zosyn. 14. Vancomycin. PAST SURGICAL HISTORY: The patient had a surgical procedure by Dr. Allen with amputation of the 5th toe and the ray as well with the wound left open for second intention healing. PHYSICAL EXAMINATION: VITAL SIGNS: Have been normal. T-max 99.9. Other vital signs are normal. SKIN: Demonstrates the amputation site, no open wound. Fresh base without erythema surrounding it. The patient has a peripheral IV access. HEENT: No lymphadenopathy. Ocular movements conjugate. No jugular vein distention. LUNGS: Symmetric, clear breath sounds. HEART: S1 and S2, regular rate. ABDOMEN: Soft, slightly distended, but not tender. No ascites or bladder distention. No organomegaly. EXTREMITIES: Pulses are diminished in dorsalis pedis and popliteal. He is able to move extremities with some limitations. His cognitive function appears to be intact. He has hearing impairment. LABORATORY DATA: Sodium 133, creatinine 0.94, AST 38. Other liver enzymes normal. CRP 7.97, albumin 3.7. White cell count 13,000, hemoglobin 12, platelets 226 with 70% neutrophils. Urinalysis was normal. Vancomycin trough 15.6. Microbiology with MRSA retrieved from the wound susceptible to clindamycin, quinolones, rifampin. Pathology is pending at this time. 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 The diagnosis was based on extension of the open wound to the metatarsophalangeal joint. The actual bone films did not demonstrate any bone destruction. At this point, I would advise transition to oral clindamycin for discharge planning and treat for probably approximately 2 weeks with close monitoring of the wound healing. I would also advise evaluation of the ultrasound of the arterial supply to the extremity. Job ID: [id number]
[2019-02-24] MEDS: Clindamycin 150 MG CAP PO SCH ×4 (04:29→21:21)
[2019-02-24] MEDS: Carvedilol 6.25 MG TAB PO SCH ×2 (08:08→16:15)
[2019-02-24] MEDS: Ezetimibe 10 MG TAB PO SCH (08:08)
[2019-02-24] MEDS: Aspirin 81 mg Enteric Coated Tablet PO SCH (08:08)
[2019-02-24] MEDS: Lisinopril 5 MG TAB PO SCH (08:08)
[2019-02-24] MEDS: Fish Oil 1,000 MG CAP PO SCH ×2 (08:09→21:21)
[2019-02-24] MEDS: Ascorbic Acid 500 mg Chewable Tablet PO SCH (08:09)
[2019-02-24] MEDS: Famotidine 20 MG TAB PO SCH ×2 (08:09→21:21)
[2019-02-24] MEDS: Multivitamin W/ Minerals 1 TAB PO SCH (08:09)
[2019-02-24] MEDS: Enoxaparin Sodium 40 MG/0.4 ML SYRINGE SC SCH (08:10)
--- NOTE | 2019-02-24 08:50 | PDOC.PN ---
- Subjective Encounter Start Date: 02/24/19 Encounter Start Time: 08:48 Subjective: Unable to ambulate yesterday due to pain and weakness. -: requiring 2 people for transfers - Objective Resuscitation Status - Order Detail: 02/21/19 14:28 Resuscitation Status Routine Resuscitation Status: FULL: Full Resuscitation Vital Signs & Weight: Vital Signs (12 hours) Temp Pulse Resp BP BP Pulse Ox 02/24/19 08:16 94 L 02/24/19 08:08 73 120/50 L 02/24/19 08:00 98.1 F 73 16 120/50 L 94 L Weight Admit Weight 230 lb Weight 230 lb I&O: 02/23/19 02/24/19 02/25/19 06:59 06:59 06:59 Intake Total 1550 2050 Output Total 1400 1600 Balance 150 450 Result Diagrams: 02/22/19 06:25 02/22/19 06:25 Additional Labs: Accuchecks 02/24/19 02/23/19 02/23/19 05:19 20:56 16:29 POC Glucose 99 118 H 118 H 02/23/19 11:11 POC Glucose 114 H Phys Exam - Physical Examination Constitutional: NAD obese HEENT: PERRLA, moist MMs Neck: no JVD, supple Respiratory: no rales, no rhonchi fair air entry bilaterally Cardiovascular: RRR, no significant murmur Gastrointestinal: soft, non-tender, no distention, positive bowel sounds obese Musculoskeletal: no edema Right foot and ankle covered with dressing. Neurological: non-focal, moves all 4 limbs Power is decreased in both lower limbs. Psychiatric: normal affect, A&O x 3 Dx/Plan (1) Osteomyelitis Code(s): M86.9 - OSTEOMYELITIS, UNSPECIFIED Status: Acute Comment: S/p right small toe amputation. (2) JED (acute kidney injury) Code(s): N17.9 - ACUTE KIDNEY FAILURE, UNSPECIFIED Status: Acute Comment: Resolving. (3) Chronic combined systolic (congestive) and diastolic (congestive) heart failure Code(s): I50.42 - CHRONIC COMBINED SYSTOLIC AND DIASTOLIC HRT FAIL Status: Acute (4) Cellulitis Code(s): L03.90 - CELLULITIS, UNSPECIFIED Status: Acute (5) CAD (coronary artery disease) Code(s): I25.10 - ATHSCL HEART DISEASE OF [place] CORONARY ARTERY W/O ANG PCTRS Status: Chronic Qualifiers: Coronary Disease-Associated Artery/Lesion type: bypass graft [place] vs. transplanted heart: [place] heart Associated angina: without angina Qualified Code(s): I25.810 - Atherosclerosis of coronary artery bypass graft(s) without angina pectoris (6) HTN (hypertension) Code(s): I10 - ESSENTIAL (PRIMARY) HYPERTENSION Status: Chronic Qualifiers: Hypertension type: essential hypertension Qualified Code(s): I10 - Essential (primary) hypertension (7) Obesity Code(s): E66.9 - OBESITY, UNSPECIFIED Status: Chronic Qualifiers: Obesity type: unspecified obesity type (8) Hyponatremia Code(s): E87.1 - HYPO-OSMOLALITY AND HYPONATREMIA Status: Resolved Comment: Resolved. (9) Physical deconditioning Code(s): R53.81 - OTHER MALAISE Status: Acute - Plan Now on clindamyscin as per ID. targeting a duration of 14 days. -: Continue Pt/OT. Unsafe to discharge patient as he cannot ambulate. -: Get oncology social worker consult to help with disposition: SNF vs inpatient rehab, -: Continue other treatments. * .
--- NOTE | 2019-02-24 10:23 | ULT ---
RIGHT LOWER EXTREMITY ARTERIAL DOPPLER EXAM: Date; 02/24/19 HISTORY: Decreased pulses right leg with right foot ulcer. FINDINGS: ARTERY: PSV (cm/sec) Common femoral artery 189 Profunda femoral 99 Proximal superficial femoral 114 Mid 102 Distal 158 Popliteal 69 Anterior tibial 13 Posterior tibial 82 Dorsalis pedis could not be assessed due to bandaging. IMPRESSION: Elevated common femoral artery velocity suggesting proximal aortoiliac disease. Also findings that wo uld suggest moderate stenosis between the common femoral and proximal superficial femoral artery, and distal superficial femoral artery and popliteal artery. Further evaluation with CT angiography would be recommended. POS: [facility]
[2019-02-24] MEDS: HYDROcodone/Acetaminophen 5/325 mg Tablet PO PRN (16:17)
[2019-02-24] MEDS: Acetaminophen 500 MG TAB PO PRN (19:34)
[2019-02-24] MEDS: Atorvastatin Calcium 40 MG TAB PO SCH (21:21)
[2019-02-25] MEDS: Clindamycin 150 MG CAP PO SCH ×4 (03:32→21:30)
[2019-02-25 05:24] LABS: #Basophils 0.1 thou/uL (0.0-0.2); #Eosinphils 0.5 thou/uL (0.0-0.7); #Lymphocytes 1.7 thou/uL (1.20-3.40); #Monocytes 0.9 thou/uL (0.11-0.59); #Neutrophils 8.6 thou/uL (1.40-6.50); %Basophils 0.5 % (0.0-1.0); %Eosinophils 4.1 % (0.0-10.0); %Lymphocytes 14.6 % (21.0-51.0); %Monocytes 7.5 % (0.0-10.0); %Neutrophils 73.3 % (42.0-75.0); Hemoglobin 11.2 g/dL (14.0-18.0); Mean Corpuscular Hemoglobin 30.5 pg (27.0-31.0); Mean Corpuscular Volume 92.5 fL (78.0-98.0); Mean Platelet Volume 8.2 fL (7.4-10.4); Platelet Count 207 thou/uL (130-400); Red Blood Cell (RBC) Count 3.66 mill/uL (4.70-6.10); White Blood Cell (WBC) Count 11.8 thou/uL (4.8-10.8)
[2019-02-25 05:39] LABS: Anion Gap 13 mmol/L (10-20); BUN (Urea Nitrogen) 14 mg/dL (8.4-25.7); Calc. Creatinine Clearance 123 mL/min (70-130); Calcium 9.2 mg/dL (7.8-10.44); Carbon Dioxide 23 mmol/L (23-31); Chloride 101 mmol/L (98-107); Estimated GFR-MDRD 90; Glucose 113 mg/dL (80-115); Potassium 4.4 mmol/L (3.5-5.1); Sodium 133 mmol/L (136-145)
[2019-02-25] MEDS: Fish Oil 1,000 MG CAP PO SCH ×2 (08:59→21:29)
[2019-02-25] MEDS: Aspirin 81 mg Enteric Coated Tablet PO SCH (08:59)
[2019-02-25] MEDS: Carvedilol 6.25 MG TAB PO SCH ×2 (08:59→16:03)
[2019-02-25] MEDS: Enoxaparin Sodium 40 MG/0.4 ML SYRINGE SC SCH (09:00)
[2019-02-25] MEDS: Lisinopril 5 MG TAB PO SCH (09:00)
[2019-02-25] MEDS: Multivitamin W/ Minerals 1 TAB PO SCH (09:00)
[2019-02-25] MEDS: Ezetimibe 10 MG TAB PO SCH (09:00)
[2019-02-25] MEDS: Ascorbic Acid 500 mg Chewable Tablet PO SCH (09:00)
[2019-02-25] MEDS: Famotidine 20 MG TAB PO SCH ×2 (09:00→21:29)
[2019-02-25] MEDS: traMADol HCl 50 MG TAB PO PRN (09:04)
[2019-02-25] MEDS ORDERED: Morphine 2 MG/ML SYRINGE SLOW IVP PRN (09:11)
--- NOTE | 2019-02-25 10:40 | PDOC.PN ---
- Subjective Encounter Start Date: 02/25/19 Encounter Start Time: 10:39 Patient seen and examined, no new issues. - Objective Resuscitation Status - Order Detail: 02/21/19 14:28 Resuscitation Status Routine Resuscitation Status: FULL: Full Resuscitation Vital Signs & Weight: Vital Signs (12 hours) Temp Pulse Resp BP BP Pulse Ox 02/25/19 09:00 67 02/25/19 08:59 123/75 02/25/19 08:14 98.2 F 67 20 123/75 95 02/25/19 08:00 95 Weight Admit Weight 230 lb Weight 230 lb I&O: 02/24/19 02/25/19 02/26/19 06:59 06:59 06:59 Intake Total 2050 1020 Output Total 1600 1230 Balance 450 -210 Result Diagrams: 02/25/19 04:37 02/25/19 04:37 Additional Labs: Accuchecks 02/24/19 11:54 POC Glucose 122 H Phys Exam - Physical Examination Constitutional: NAD HEENT: PERRLA, moist MMs Neck: no nodes, no JVD, supple Respiratory: no wheezing, no rales, no rhonchi Cardiovascular: RRR, no significant murmur, no rub Gastrointestinal: soft, non-tender, no distention Musculoskeletal: no edema, pulses present Dx/Plan (1) Chronic combined systolic (congestive) and diastolic (congestive) heart failure Code(s): I50.42 - CHRONIC COMBINED SYSTOLIC AND DIASTOLIC HRT FAIL Status: Acute (2) Osteomyelitis Code(s): M86.9 - OSTEOMYELITIS, UNSPECIFIED Status: Acute Comment: S/p right small toe amputation. (3) Acute on chronic combined systolic (congestive) and diastolic (congestive) heart failure Code(s): I50.43 - ACUTE ON CHRONIC COMBINED SYSTOLIC AND DIASTOLIC HRT FAIL Status: Acute Comment: class B, ef of 45% (4) Cellulitis Code(s): L03.90 - CELLULITIS, UNSPECIFIED Status: Acute (5) Physical deconditioning Code(s): R53.81 - OTHER [place] Status: Acute - Plan * cont current plan of care * cont abx * pending placement * DC once placement arranged * case and plan d/w patient at length, he understood and agreed with this plan.
[2019-02-25] MEDS: HYDROcodone/Acetaminophen 5/325 mg Tablet PO PRN (16:02)
--- NOTE | 2019-02-25 18:15 | PRG ---
DATE OF SERVICE: 02/25/2019 SUBJECTIVE: Magan Dubois is doing well today. His right foot, he has had a very little pain. He has wound VAC applied. The wound looked good during application. The patient apparently is going to rehab. From a surgical standpoint, the patient can be converted to oral antibiotics. His cultures MRSA, can be treated with oral antibiotics. He should follow up in my office in 2 to 3 weeks. He had excellent bleeding at the time of surgery and has excellent blood supply with pulsatile bleeding. Our posterior blood supply is good. I will see him as needed in this hospitalization, but plan is to seen him in my office in 2 to 3 weeks. Job ID: [id number]
[2019-02-25] MEDS: Atorvastatin Calcium 40 MG TAB PO SCH (21:29)
[2019-02-26] MEDS: Clindamycin 150 MG CAP PO SCH ×3 (04:32→15:33)
[2019-02-26] MEDS: Aspirin 81 mg Enteric Coated Tablet PO SCH (08:40)
[2019-02-26] MEDS: Multivitamin W/ Minerals 1 TAB PO SCH (08:40)
[2019-02-26] MEDS: Fish Oil 1,000 MG CAP PO SCH (08:40)
[2019-02-26] MEDS: Carvedilol 6.25 MG TAB PO SCH (08:40)
[2019-02-26] MEDS: Ezetimibe 10 MG TAB PO SCH (08:41)
[2019-02-26] MEDS: Famotidine 20 MG TAB PO SCH (08:41)
[2019-02-26] MEDS: Lisinopril 5 MG TAB PO SCH (08:41)
[2019-02-26] MEDS: Ascorbic Acid 500 mg Chewable Tablet PO SCH (08:41)
[2019-02-26] MEDS: Enoxaparin Sodium 40 MG/0.4 ML SYRINGE SC SCH (08:42)
--- NOTE | 2019-02-26 10:49 | PQF ---
CLINICAL DOCUMENTATION IMPROVEMENT CLARIFICATION FORM: ICD-10 Updated PLEASE DO AN ADDENDUM TO THE PROGRESS NOTE WITH ANY DOCUMENTATION UPDATES OR ADDITIONS AND CARRY THROUGH TO DC SUMMARY. THANK YOU. DATE: 02/26/2019 ATTN: Dr. Badillo Please exercise your independent, professional judgment in responding to the clarification form. Clinical indicators are provided on the bottom of this form for your review Please check appropriate box(s): Conflicting documentation was noted in the Medical Record, please clarify if patient is being treated/monitored for: [ x ] Chronic combined systolic (congestive) and diastolic (congestive) heart failure [ ] Acute on chronic combined systolic (congestive ) and diastolic (congestive ) heart failure [ ] Other diagnosis [ ] Unable to determine In addition, please specify: Present on Admission (POA): [ x ] Yes [ ] No [ ] Unable to determine For continuity of documentation, please document condition throughout progress notes and discharge summary. Thank You. CLINICAL INDICATORS - SIGNS / SYMPTOMS/ LABS PN 02/25: Chronic combined systolic (congestive) and diastolic (congestive) heart failure Status: Acute Acute on chronic combined systolic (congestive ) and diastolic ( congestive) heart failure. Status Acute. Comment class B, EF of 45% RISKS: H&P 02/21: Hx of CHF with EF of 45% to 50% and diastolic dysfunction, CAD with prior hx of CABG, HTN. TREATMENT: MAR: Order 02/21: Coreg 6.25 mg po BID MAR: Order 02/21: Lisinopril 5 mg po Daily Thank you, Chikis (This form is maintained as a part of the permanent medical record) 2014 [employer]. All Rights Reserved Chikis Alexis RN, BSN [email or web address] Office: [phone] [facility]
--- NOTE | 2019-02-26 11:09 | PDOC.EVN ---
Event Note - Event Note Event Note: DC SUMMARY #[id number]
--- NOTE | 2019-02-26 11:29 | DIS ---
DATE OF ADMISSION: 02/21/2019 DATE OF DISCHARGE: 02/26/2019 ADMITTING DIAGNOSES: Right foot osteomyelitis; congestive heart failure, systolic and diastolic; coronary artery disease; hypertension; hyperlipidemia; obesity as well as peripheral vascular disease. DISCHARGE DIAGNOSES: Right foot osteomyelitis, status post debridement intervention; congestive heart failure, systolic and diastolic; coronary artery disease; hypertension; hyperlipidemia; obesity as well as peripheral vascular disease; was stable. HOSPITAL COURSE: This is a 68-year-old gentleman, who was admitted to the hospital with right foot osteomyelitis. The patient was admitted to Internal Medicine Team, was seen by General Surgery as well as Infectious Disease Services. The patient was taken to the OR for right lower extremity toe amputation. The patient had a surgical procedure done, in which he had amputation of small right toe metatarsal and open wound on the left. The patient had a wound VAC placed, was followed very closely with IV antibiotics by Infectious Disease as well as Internal Medicine team. Blood cultures were done, which was negative. The patient at point in time of discharge was stable and was to discharge to rehab with continued antibiotics. The patient was cleared for discharge from a surgical perspective as well as infectious disease and medical perspective. The patient's condition upon the time of discharge was stable, was to follow up with rehab and have further management and care over there and then follow up outpatient with General Surgery within 1 week or 2. Antibiotics were converted to clindamycin, which were continued at the rehab. General Surgery would continue to follow as well. The patient's condition upon the time of discharge was stable. He did not have any nausea, vomiting, diarrhea, constipation, chest pain, fevers, chills or shortness of breath. Case and plan discussed with the patient at length. He understood and agreed with this plan. Disposition to rehab. FOLLOWUP: Follow up with PCP within 1 week and General Surgery within 2 weeks. MEDICATIONS: See MAR. ACTIVITY: As tolerated with as needed. DIET: Low-fat, low-calorie, high-fiber diet. CONDITION: Stable. PROGNOSIS: Good. Case and plan once again discussed with the patient at length. He understood and agreed with this plan. Job ID: [id number]
[2019-02-26] MEDS: HYDROcodone/Acetaminophen 5/325 mg Tablet PO PRN (12:19)
[2019-02-26 17:12] VITALS: BP 145/74; TEMP 98
== END 2019-02-26 16:36 | disposition swing bed (61) | DRG 475 ==
LOC: ERS 12:34 → 3SE 14:07 → T4-A 02-23 14:52
PROVIDERS: ADMIT Internal Medicine; ATTEND Internal Medicine
PROC: 0Y6M0ZF Detachment at Right Foot, Partial 5th Ray, Open Approach (ICD-10-PCS; principal; 2019-02-22)
DX: M86.171 Other acute osteomyelitis, right ankle and foot (principal); N17.9 Acute kidney failure, unspecified; E87.1 Hypo-osmolality and hyponatremia; I50.42 Chronic combined systolic (congestive) and diastolic (congestive) heart failure; L03.115 Cellulitis of right lower limb; I11.0 Hypertensive heart disease with heart failure; I25.10 Atherosclerotic heart disease of native coronary artery without angina pectoris; E78.5 Hyperlipidemia, unspecified; I73.9 Peripheral vascular disease, unspecified; E66.01 Morbid (severe) obesity due to excess calories; Z90.49 Acquired absence of other specified parts of digestive tract; Z87.891 Personal history of nicotine dependence; Z79.899 Other long term (current) drug therapy; Z79.82 Long term (current) use of aspirin; Z68.36 Body mass index [BMI] 36.0-36.9, adult; Z95.1 Presence of aortocoronary bypass graft
CPT/HCPCS: 36415; 36416; 80048; 80053; 80202; 81003; 83605; 85025; 85652; 86140; 87040; 87070; 87076; 87077; 87186; 87205; 88305; 88311; 93923; 96365; 96367; 97602; 99203; A4218; G0463; J1650; J2001; J2270; J2405; J2543; J2704; J3010; J3370; J3490; S0028

== ENCOUNTER 2020-10-28 10:49 | Outpatient (CLI) | payer MEDICARE ==
[2020-10-28] MEDS ORDERED: Iopamidol-370 76% 500 ML 1 ML ONE (13:49)
== END 2020-10-28 10:50 | disposition home or self-care (01) ==
LOC: BICCT 10:49
PROVIDERS: ATTEND Thoracic Surgery (Cardiothoracic Vascular Surgery)
DX: I65.23 Occlusion and stenosis of bilateral carotid arteries (principal)
CPT/HCPCS: 70498; 82565; Q9967

== ENCOUNTER 2020-10-30 09:00 | Inpatient (IN) | payer MEDICARE ==
[2020-11-04] MEDS ORDERED: Phenylephrine 10 MG/ML VIAL ONE (06:43)
[2020-11-04] MEDS ORDERED: Fentanyl 100 MCG/2 ML VIAL ONE ×3 (06:43→15:08)
[2020-11-04] MEDS ORDERED: Nitroglycerin 50 MG/250 ML BOT 250 ML ONE (06:43)
[2020-11-04] MEDS ORDERED: Heparin 5,000 UNITS/ML VIAL ONE ×2 (06:44→15:13)
[2020-11-04] MEDS ORDERED: Protamine Sulfate 50 MG/5 ML VIAL ONE ×2 (06:44→15:14)
[2020-11-04] MEDS ORDERED: Ketamine 50 MG/ML (10ML VIAL) ONE (07:56)
[2020-11-04] MEDS ORDERED: Heparin 10,000 UNITS/ 10 ML VIAL ONE (09:08)
[2020-11-04] MEDS ORDERED: Lidocaine 1% PF 5 ML VIAL ONE (09:37)
[2020-11-04] MEDS ORDERED: PROPOFOL 200 MG/20 ML VIAL ONE ×2 (09:37)
[2020-11-04] MEDS ORDERED: Rocuronium Bromide 10 MG/ML (10ML VIAL) ONE ×2 (09:37)
[2020-11-04] MEDS ORDERED: Ondansetron PF 4 MG/2 ML Vial ONE (09:37)
[2020-11-04] MEDS ORDERED: Succinylcholine 200 MG/10 ml SYRINGE FS ONE (09:37)
[2020-11-04] MEDS ORDERED: SUGAMMADEX SODIUM 200 MG/2 ML VIAL ONE ×2 (09:39→15:50)
[2020-11-04] MEDS ORDERED: Phenylephrine 40 MG in Sodium Chloride 0.9% 250 ML 250 ML IVPB PRN (11:22)
[2020-11-04] MEDS ORDERED: Ondansetron PF 4 MG/2 ML Vial IVP PRN (11:22)
[2020-11-04] MEDS ORDERED: HYDROcodone/Acetaminophen 5/325 mg Tablet PO PRN ×2 (11:22)
[2020-11-04] MEDS ORDERED: Nitroglycerin 50 MG/250 ML BOT 250 ML IVPB PRN (11:22)
[2020-11-04] MEDS ORDERED: Acetaminophen 325 MG TAB PO PRN (11:22)
[2020-11-04] MEDS: Sodium Chloride 0.9% 1,000 ML IV SCH (12:39)
[2020-11-04 12:58] VITALS: BMI 36.6
[2020-11-04] MEDS: Fentanyl 100 MCG/2 ML VIAL SLOW IVP PRN (14:03)
[2020-11-04] MEDS ORDERED: Midazolam HCl 2 mg/2 ml Vial ONE (15:08)
[2020-11-04] MEDS ORDERED: Bupivacaine 0.25% HCL 30 ML VIAL ONE (15:13)
[2020-11-04] MEDS ORDERED: Protamine Sulfate 250 MG/25 ML VIAL ONE (15:15)
[2020-11-04] MEDS ORDERED: EPINEPHrine 1 MG/ML AMP ONE ×2 (15:18→16:42)
[2020-11-04] MEDS ORDERED: Promethazine HCl 25 MG/ML VIAL IM PRN (16:51)
[2020-11-04] MEDS ORDERED: Promethazine HCl 25 MG/ML VIAL SLOW IVP PRN (16:51)
[2020-11-04] MEDS ORDERED: Ondansetron HCl/PF 4 MG/2 ML Vial IVP PRN (16:51)
[2020-11-04] MEDS: CEFAZOLIN 2 GM in Premix Bag 1 BAG IVPB SCH (17:12)
[2020-11-04] MEDS ORDERED: Atorvastatin Calcium 40 MG TAB PO SCH (21:00)
[2020-11-04] MEDS: Carvedilol 6.25 MG TAB PO SCH (22:15)
[2020-11-05] MEDS: CEFAZOLIN 2 GM in Premix Bag 1 BAG IVPB SCH ×2 (00:36→08:56)
[2020-11-05] MEDS: Fentanyl 100 MCG/2 ML VIAL SLOW IVP PRN (06:35)
[2020-11-05 08:33] VITALS: TEMP 98.5
[2020-11-05] MEDS: Sodium Chloride 0.9% 1,000 ML IV SCH (08:56)
[2020-11-05] MEDS: Carvedilol 6.25 MG TAB PO SCH (08:58)
[2020-11-05 08:59] VITALS: BP 128/49
[2020-11-05] MEDS ORDERED: Furosemide 40 MG TAB PO SCH (09:00)
[2020-11-05] MEDS ORDERED: Clopidogrel Bisulfate 75 MG TAB PO SCH (09:00)
[2020-11-05] MEDS ORDERED: Lisinopril 5 MG TAB PO SCH (09:00)
[2020-11-05] MEDS ORDERED: Aspirin Chewable 81 MG TAB PO SCH (09:00)
== END 2020-11-05 15:21 | disposition home or self-care (01) | DRG 38 ==
LOC: SURG A 11-04 05:25 → EDSTATUS 11-04 09:00 → CCU 11-04 11:38
PROVIDERS: ADMIT Thoracic Surgery (Cardiothoracic Vascular Surgery); ATTEND Thoracic Surgery (Cardiothoracic Vascular Surgery)
PROC: 03CH0ZZ Extirpation of Matter from Right Common Carotid Artery, Open Approach (ICD-10-PCS; principal; 2020-11-04)
PROC: 03UH0KZ Supplement Right Common Carotid Artery with Nonautologous Tissue Substitute, Open Approach (ICD-10-PCS; 2020-11-04)
PROC: 0J940ZZ Drainage of Right Neck Subcutaneous Tissue and Fascia, Open Approach (ICD-10-PCS; 2020-11-04)
DX: I65.21 Occlusion and stenosis of right carotid artery (principal); L76.22 Postprocedural hemorrhage of skin and subcutaneous tissue following other procedure; Y83.9 Surgical procedure, unspecified as the cause of abnormal reaction of the patient, or of later complication, without mention of misadventure at the time of the procedure; Y92.239 Unspecified place in hospital as the place of occurrence of the external cause; I25.10 Atherosclerotic heart disease of native coronary artery without angina pectoris; I10 Essential (primary) hypertension; E78.5 Hyperlipidemia, unspecified; E66.9 Obesity, unspecified; Z98.890 Other specified postprocedural states; Z95.1 Presence of aortocoronary bypass graft; Z89.421 Acquired absence of other right toe(s); Z79.899 Other long term (current) drug therapy; Z79.82 Long term (current) use of aspirin; Z98.42 Cataract extraction status, left eye; Z98.41 Cataract extraction status, right eye; Z98.1 Arthrodesis status; Z87.891 Personal history of nicotine dependence; Z68.36 Body mass index [BMI] 36.0-36.9, adult
CPT/HCPCS: J0171; J0690; J1642; J1644; J2250; J2370; J2405; J2704; J2720; J3010; S0020

== ENCOUNTER 2020-10-30 09:06 | Outpatient (CLI) | payer MEDICARE ==
[2020-10-30 10:35] LABS: Hemoglobin 13.4 g/dL (13.5-17.5); Mean Corpuscular Hemoglobin 29.5 pg (27.0-33.0); Mean Corpuscular Volume 89.4 fl (81.2-95.1); Mean Platelet Volume 11.6 fl (7.4-10.4); Platelet Count 201 10x3/uL (150-450); RBC Distribution Width 13.1 % (11.5-14.5); Red Blood Cell (RBC) Count 4.54 10x6/uL (4.32-5.72)
[2020-10-30 11:20] LABS: Calcium 8.9 mg/dL (7.8-10.44); Chloride 105 mmol/L (98-107); Potassium 4.7 mmol/L (3.5-5.1); Sodium 140 mmol/L (136-145)
[2020-10-30 11:31] LABS: Anion Gap 16 mmol/L (10-20); BUN (Urea Nitrogen) 27 mg/dL (8.4-25.7); Calc. Creatinine Clearance 0 mL/min (70-130); Carbon Dioxide 25 mmol/L (23-31); Glucose 108 mg/dL (80-115)
[2020-10-30 21:52] LABS: SARS-CoV-2 PCR by NAA Not Detected (NotDetected)
== END 2020-10-30 09:07 | disposition home or self-care (01) ==
LOC: LABBT 09:06
PROVIDERS: ATTEND Thoracic Surgery (Cardiothoracic Vascular Surgery)
DX: Z01.818 Encounter for other preprocedural examination (principal); Z20.822 Contact with and (suspected) exposure to COVID-19
CPT/HCPCS: 80048; 85027; 93005; U0003; U0005; 87635; 93010

== ENCOUNTER 2021-05-06 19:23 | Inpatient (IN) | payer MEDICARE ==
[2021-05-07 00:20] VITALS: BMI 36.0
[2021-05-07] MEDS ORDERED: Acetaminophen 650 MG Suppository PR PRN (01:07)
[2021-05-07] MEDS ORDERED: Ondansetron PF 4 MG/2 ML Vial IVP PRN (01:07)
[2021-05-07] MEDS: cefTRIAXone\\ROCEPHIN 1 GM in Sodium Chloride 0.9% 100 ML IVPB SCH (02:10)
[2021-05-07] MEDS: Sodium Chloride 0.9% 1,000 ML IV SCH ×2 (02:13→23:01)
[2021-05-07] MEDS: Midodrine HCl 5 MG TAB PO SCH ×3 (05:34→20:16)
[2021-05-07 07:30] LABS: Hemoglobin 11.3 g/dL (14.0-18.0); Mean Corpuscular HGB CONC 31.2 g/dL (32.0-36.0); Mean Corpuscular Hemoglobin 27.4 pg (27.0-31.0); Mean Corpuscular Volume 87.7 fL (78.0-98.0); Mean Platelet Volume 8.7 fL (7.4-10.4); Platelet Count 172 thou/uL (130-400); Red Blood Cell (RBC) Count 4.13 mill/uL (4.70-6.10); White Blood Cell (WBC) Count 10.6 thou/uL (4.8-10.8)
[2021-05-07 07:45] LABS: ALT (SGPT) 61 U/L (8-55); AST (SGOT) 61 U/L (5-34); Albumin 2.7 g/dL (3.4-4.8); Alkaline Phosphatase 97 U/L (40-110); Anion Gap 14 mmol/L (10-20); BUN (Urea Nitrogen) 12 mg/dL (8.4-25.7); Bilirubin, Total 0.5 mg/dL (0.2-1.2); Calc. Creatinine Clearance 124 mL/min (70-130); Calcium 8.6 mg/dL (7.8-10.44); Carbon Dioxide 24 mmol/L (23-31); Cardiac Risk 3.7 (Less than 4.5); Chloride 104 mmol/L (98-107); Cholesterol 74 mg/dl (< 200 Desired); Globulin 3.6 g/dL (2.4-3.5); Glucose 113 mg/dL (80-115); HDL Cholesterol 20 mg/dL (>60 Neg Risk); LDL Cholesterol, Calculated 42 mg/dL; Potassium 4.1 mmol/L (3.5-5.1); Protein, Total 6.3 g/dL (5.8-8.1); Sodium 138 mmol/L (136-145); Triglycerides 62 mg/dL (Less than 150)
[2021-05-07 08:30] LABS: Band 2 % (5-11); Eosinophils 3 % (0-10); Lymphocytes 16 % (21-51); MDiff Complete? YES; Monocytes 8 % (0-10); Neutrophil 71 % (42-75); Ovalocytes SLIGHT = 2-5 cells (100X) (0-1/hpf); Polychromasia SLIGHT = 2-3 cells (100X) (0-2/hpf)
[2021-05-07] MEDS: Carvedilol 6.25 MG TAB PO SCH ×2 (08:52→16:36)
[2021-05-07] MEDS ORDERED: Furosemide 40 MG/4 ML VIAL SLOW IVP SCH (09:00)
[2021-05-07 09:19] LABS: Pleural Fluid, Protein 3.2 g/dL
[2021-05-07 09:47] LABS: RBC Count-Automated (BF) 27522 /cu.mm; WBC/Nucleated-Auto (BF) 1032 uL
[2021-05-07] MEDS ORDERED: Azithromycin 500 MG in Sodium Chloride 0.9% 250 ML 250 ML IVPB SCH (10:00)
[2021-05-07 10:37] LABS: Body Fluid Source Pleural Fluid
[2021-05-07 10:38] LABS: BF Color Red; Clarity Cloudy/Turbid (Clear); Tube # EDTA
[2021-05-07 12:21] LABS: BF Segmented Neutrophils 15 %; Cell Count Non Hematic 10 %; Eosinophils 2 %; Lymphocytes 73 %
[2021-05-07 12:36] LABS: INR-International Normal Ratio 1.3; Prothrombin Time 16.2 sec (12.0-14.7)
[2021-05-07] MEDS: Atorvastatin Calcium 40 MG TAB PO SCH (20:16)
[2021-05-08] MEDS: Acetaminophen 325 MG TAB PO PRN ×2 (00:17→21:07)
[2021-05-08] MEDS: cefTRIAXone\\ROCEPHIN 1 GM in Sodium Chloride 0.9% 100 ML IVPB SCH (02:13)
[2021-05-08] MEDS: Midodrine HCl 5 MG TAB PO SCH ×3 (05:41→22:18)
[2021-05-08 05:49] LABS: #Eosinphils 0.4 thou/uL (0.0-0.7); #Lymphocytes 0.7 thou/uL (1.20-3.40); #Monocytes 1.1 thou/uL (0.11-0.59); #Neutrophils 6.3 thou/uL (1.40-6.50); %Basophils 0.4 % (0.0-1.0); %Eosinophils 4.5 % (0.0-10.0); %Lymphocytes 8.5 % (21.0-51.0); %Monocytes 12.5 % (0.0-10.0); %Neutrophils 74.1 % (42.0-75.0); Hemoglobin 10.9 g/dL (14.0-18.0); Mean Corpuscular HGB CONC 33.6 g/dL (32.0-36.0); Mean Corpuscular Hemoglobin 29.2 pg (27.0-31.0); Mean Platelet Volume 9.2 fL (7.4-10.4); Platelet Count 189 thou/uL (130-400); RBC Distribution Width 13.8 % (11.5-14.5); Red Blood Cell (RBC) Count 3.72 mill/uL (4.70-6.10); White Blood Cell (WBC) Count 8.5 thou/uL (4.8-10.8)
[2021-05-08 06:04] LABS: Anion Gap 13 mmol/L (10-20); BUN (Urea Nitrogen) 14 mg/dL (8.4-25.7); Calc. Creatinine Clearance 139 mL/min (70-130); Calcium 8.1 mg/dL (7.8-10.44); Carbon Dioxide 25 mmol/L (23-31); Chloride 105 mmol/L (98-107); Glucose 111 mg/dL (80-115); Sodium 139 mmol/L (136-145)
[2021-05-08] MEDS: Sodium Chloride 0.9% 1,000 ML IV SCH (17:36)
[2021-05-08] MEDS: Atorvastatin Calcium 40 MG TAB PO SCH (20:24)
[2021-05-08] MEDS: Senokot S 8.6-50 MG TAB PO SCH (20:24)
[2021-05-09] MEDS: cefTRIAXone\\ROCEPHIN 1 GM in Sodium Chloride 0.9% 100 ML IVPB SCH (02:06)
[2021-05-09] MEDS: Midodrine HCl 5 MG TAB PO SCH ×3 (05:38→22:14)
[2021-05-09 07:47] LABS: #Eosinphils 0.6 thou/uL (0.0-0.7); #Lymphocytes 0.7 thou/uL (1.20-3.40); #Monocytes 0.9 thou/uL (0.11-0.59); #Neutrophils 8.2 thou/uL (1.40-6.50); %Basophils 0.4 % (0.0-1.0); %Eosinophils 5.7 % (0.0-10.0); %Lymphocytes 6.9 % (21.0-51.0); %Monocytes 8.5 % (0.0-10.0); %Neutrophils 78.5 % (42.0-75.0); Hemoglobin 10.6 g/dL (14.0-18.0); Mean Corpuscular HGB CONC 32.7 g/dL (32.0-36.0); Mean Corpuscular Hemoglobin 28.8 pg (27.0-31.0); Platelet Count 240 thou/uL (130-400); RBC Distribution Width 13.9 % (11.5-14.5); Red Blood Cell (RBC) Count 3.68 mill/uL (4.70-6.10); White Blood Cell (WBC) Count 10.5 thou/uL (4.8-10.8)
[2021-05-09 08:01] LABS: Anion Gap 12 mmol/L (10-20); BUN (Urea Nitrogen) 10 mg/dL (8.4-25.7); Calc. Creatinine Clearance 137 mL/min (70-130); Calcium 8.4 mg/dL (7.8-10.44); Carbon Dioxide 27 mmol/L (23-31); Chloride 104 mmol/L (98-107); Glucose 119 mg/dL (80-115); Potassium 4.1 mmol/L (3.5-5.1); Sodium 139 mmol/L (136-145)
[2021-05-09] MEDS: Senokot S 8.6-50 MG TAB PO SCH ×2 (08:42→19:47)
[2021-05-09] MEDS: Polyethylene Glycol 3350 17 GM Packet PO SCH (08:42)
[2021-05-09] MEDS ORDERED: Furosemide 40 MG/4 ML VIAL SLOW IVP SCH (12:30)
[2021-05-09] MEDS ORDERED: Furosemide 20 MG/2 ML VIAL SLOW IVP SCH (14:00)
[2021-05-09] MEDS: Atorvastatin Calcium 40 MG TAB PO SCH (19:47)
[2021-05-10] MEDS: cefTRIAXone\\ROCEPHIN 1 GM in Sodium Chloride 0.9% 100 ML IVPB SCH (02:14)
[2021-05-10] MEDS: Furosemide 20 MG/2 ML VIAL SLOW IVP SCH ×2 (05:22→14:36)
[2021-05-10] MEDS: Midodrine HCl 5 MG TAB PO SCH ×3 (05:23→20:48)
[2021-05-10 08:17] LABS: #Basophils 0.1 thou/uL (0.0-0.2); #Eosinphils 0.5 thou/uL (0.0-0.7); #Lymphocytes 1.1 thou/uL (1.20-3.40); #Monocytes 1.1 thou/uL (0.11-0.59); #Neutrophils 7.3 thou/uL (1.40-6.50); %Basophils 0.8 % (0.0-1.0); %Eosinophils 4.5 % (0.0-10.0); %Lymphocytes 11.2 % (21.0-51.0); %Monocytes 10.6 % (0.0-10.0); %Neutrophils 72.9 % (42.0-75.0); Hemoglobin 11.6 g/dL (14.0-18.0); Mean Corpuscular HGB CONC 33.5 g/dL (32.0-36.0); Mean Corpuscular Hemoglobin 29.1 pg (27.0-31.0); Mean Corpuscular Volume 86.7 fL (78.0-98.0); Platelet Count 239 thou/uL (130-400); RBC Distribution Width 13.9 % (11.5-14.5)
[2021-05-10 08:40] LABS: Anion Gap 17 mmol/L (10-20); BUN (Urea Nitrogen) 10 mg/dL (8.4-25.7); Calc. Creatinine Clearance 134 mL/min (70-130); Calcium 8.6 mg/dL (7.8-10.44); Carbon Dioxide 24 mmol/L (23-31); Chloride 101 mmol/L (98-107); Glucose 125 mg/dL (80-115); Potassium 3.9 mmol/L (3.5-5.1); Sodium 138 mmol/L (136-145)
[2021-05-10] MEDS: Polyethylene Glycol 3350 17 GM Packet PO SCH (08:59)
[2021-05-10] MEDS: Senokot S 8.6-50 MG TAB PO SCH ×2 (08:59→20:48)
[2021-05-10] MEDS: Atorvastatin Calcium 40 MG TAB PO SCH (20:48)
[2021-05-10] MEDS: Cefdinir 300 MG CAP PO SCH (20:48)
[2021-05-11] MEDS: Midodrine HCl 5 MG TAB PO SCH (05:36)
[2021-05-11] MEDS: Furosemide 20 MG/2 ML VIAL SLOW IVP SCH (05:36)
[2021-05-11] MEDS: Polyethylene Glycol 3350 17 GM Packet PO SCH (07:48)
[2021-05-11] MEDS: Cefdinir 300 MG CAP PO SCH (07:48)
[2021-05-11] MEDS: Senokot S 8.6-50 MG TAB PO SCH (07:48)
[2021-05-11 08:34] VITALS: BP 118/66; TEMP 97.4
== END 2021-05-11 11:13 | disposition home health service (06) | DRG 193 ==
LOC: T4-A 23:58
PROVIDERS: ADMIT Family Medicine; ATTEND Internal Medicine
PROC: 0W993ZZ Drainage of Right Pleural Cavity, Percutaneous Approach (ICD-10-PCS; principal; 2021-05-07)
DX: J18.9 Pneumonia, unspecified organism (principal); I50.43 Acute on chronic combined systolic (congestive) and diastolic (congestive) heart failure; J91.8 Pleural effusion in other conditions classified elsewhere; I42.9 Cardiomyopathy, unspecified; Z95.812 Presence of fully implantable artificial heart; Z20.822 Contact with and (suspected) exposure to COVID-19; I11.0 Hypertensive heart disease with heart failure; E66.9 Obesity, unspecified; I25.10 Atherosclerotic heart disease of native coronary artery without angina pectoris; E78.5 Hyperlipidemia, unspecified; R09.02 Hypoxemia; I08.3 Combined rheumatic disorders of mitral, aortic and tricuspid valves; R09.1 Pleurisy; Z68.36 Body mass index [BMI] 36.0-36.9, adult; I25.2 Old myocardial infarction; Z79.899 Other long term (current) drug therapy; Z79.82 Long term (current) use of aspirin; Z95.1 Presence of aortocoronary bypass graft; Z90.49 Acquired absence of other specified parts of digestive tract; Z95.5 Presence of coronary angioplasty implant and graft; Z95.828 Presence of other vascular implants and grafts
CPT/HCPCS: 36415; 71045; 71046; 80048; 80053; 80061; 82945; 83615; 83880; 84157; 85007; 85025; 85027; 85060; 85610; 85652; 87040; 87070; 87086; 87205; 88112; 88305; 89051; 93306; J0696; J1940; J3490; J7050; P9045

== ENCOUNTER 2021-07-25 19:25 | Inpatient (IN) | payer MEDICARE ==
[2021-07-25 20:48] VITALS: BMI 34.7
[2021-07-25] MEDS ORDERED: Vancomycin 1 GM in Premix Bag 1 BAG IVPB SCH (21:00)
[2021-07-25] MEDS ORDERED: Ondansetron ODT 4 MG TAB SL PRN (21:00)
[2021-07-25] MEDS ORDERED: Ondansetron PF 4 MG/2 ML Vial IVP PRN (21:00)
[2021-07-25] MEDS ORDERED: Acetaminophen 325 MG TAB PO PRN (22:56)
[2021-07-25] MEDS ORDERED: Bisacodyl 5 MG TAB PO PRN (22:56)
[2021-07-25] MEDS ORDERED: Senokot S 8.6-50 MG TAB PO PRN (22:56)
[2021-07-25] MEDS ORDERED: HYDROcodone/Acetaminophen 5/325 mg Tablet PO PRN (22:56)
[2021-07-25] MEDS ORDERED: HYDROcodone/Acetaminophen 7.5/325 mg Tablet PO PRN (22:56)
[2021-07-25] MEDS ORDERED: Melatonin 3 MG TAB PO PRN (23:08)
[2021-07-25] MEDS ORDERED: hydrALAZINE 20 MG/ML VIAL SLOW IVP PRN (23:08)
[2021-07-25] MEDS: Piperacillin/Tazobactam 3.375 GM in Sodium Chloride 0.9% 100 ML IVPB SCH (23:20)
[2021-07-26] MEDS ORDERED: Enoxaparin Sodium 100 MG/ML SYRINGE SC SCH (00:15)
[2021-07-26 00:16] LABS: Troponin I 0.065 ng/mL (< 0.028)
[2021-07-26 02:39] LABS: Troponin I 0.084 ng/mL (< 0.028)
[2021-07-26] MEDS ORDERED: VANCOMYCIN 1.25 GM/250 ML BAG 1.25 GM in Premix Bag 1 BAG IVPB SCH (06:00)
[2021-07-26 06:57] LABS: ALT (SGPT) 21 U/L (8-55); AST (SGOT) 28 U/L (5-34); Albumin 2.9 g/dL (3.4-4.8); Alkaline Phosphatase 73 U/L (40-110); Anion Gap 13 mmol/L (10-20); BUN (Urea Nitrogen) 23 mg/dL (8.4-25.7); Bilirubin, Total 1.2 mg/dL (0.2-1.2); Calc. Creatinine Clearance 62 mL/min (70-130); Calcium 8.2 mg/dL (7.8-10.44); Carbon Dioxide 24 mmol/L (23-31); Chloride 103 mmol/L (98-107); Globulin 3.5 g/dL (2.4-3.5); Glucose 105 mg/dL (80-115); Potassium 4.5 mmol/L (3.5-5.1); Protein, Total 6.4 g/dL (5.8-8.1); Sodium 135 mmol/L (136-145)
[2021-07-26] MEDS ORDERED: Famotidine/PF 20 mg/2ml Vial SLOW IVP SCH (09:00)
[2021-07-26] MEDS: Carvedilol 3.125 MG TAB PO SCH ×2 (09:30→21:12)
[2021-07-26] MEDS: Lisinopril 2.5 MG TAB PO SCH (09:30)
[2021-07-26] MEDS: LACTINEX 1 TAB PO SCH ×3 (09:31→21:08)
[2021-07-26] MEDS: Ezetimibe 10 MG TAB PO SCH (09:31)
[2021-07-26] MEDS: Piperacillin/Tazobactam 3.375 GM in Sodium Chloride 0.9% 100 ML IVPB SCH (09:31)
[2021-07-26] MEDS: Enoxaparin Sodium 100 MG/ML SYRINGE SC SCH ×2 (13:59→21:08)
[2021-07-26] MEDS: D5 1/2 NS w/10 mEq KCl 1,000 ML/1,000 ML BAG IV SCH ×2 (14:00→21:08)
[2021-07-26] MEDS ORDERED: Atorvastatin Calcium 40 MG TAB PO SCH (21:00)
[2021-07-27] MEDS: D5 1/2 NS w/10 mEq KCl 1,000 ML/1,000 ML BAG IV SCH ×2 (05:39→14:45)
[2021-07-27] MEDS ORDERED: Aspirin 81 mg Enteric Coated Tablet PO SCH (09:00)
[2021-07-27] MEDS ORDERED: Famotidine/PF 20 mg/2ml Vial SLOW IVP SCH ×2 (09:00→21:00)
[2021-07-27] MEDS: Lisinopril 2.5 MG TAB PO SCH (09:19)
[2021-07-27] MEDS: LACTINEX 1 TAB PO SCH ×2 (09:19→15:35)
[2021-07-27] MEDS: Ezetimibe 10 MG TAB PO SCH (09:20)
[2021-07-27] MEDS: Carvedilol 3.125 MG TAB PO SCH (09:20)
[2021-07-27] MEDS: Enoxaparin Sodium 100 MG/ML SYRINGE SC SCH (10:44)
[2021-07-27] MEDS ORDERED: Enoxaparin Sodium 40 MG/0.4 ML SYRINGE SC SCH (10:45)
[2021-07-27 12:03] VITALS: TEMP 98.1
[2021-07-27 12:14] LABS: Anion Gap 10 mmol/L (10-20); BUN (Urea Nitrogen) 14 mg/dL (8.4-25.7); Calc. Creatinine Clearance 127 mL/min (70-130); Calcium 8.1 mg/dL (7.8-10.44); Carbon Dioxide 21 mmol/L (23-31); Chloride 106 mmol/L (98-107); Glucose 137 mg/dL (80-115); Potassium 3.8 mmol/L (3.5-5.1); Sodium 133 mmol/L (136-145)
[2021-07-27 14:12] VITALS: BP 120/60
[2021-07-27] MEDS ORDERED: Fish Oil 1,000 MG CAP PO SCH (21:00)
[2021-07-28] MEDS ORDERED: Enoxaparin Sodium 40 MG/0.4 ML SYRINGE SC SCH (09:00)
== END 2021-07-27 16:32 | disposition home health service (06) | DRG 682 ==
LOC: NEURO 20:33
PROVIDERS: ADMIT Internal Medicine; ATTEND Internal Medicine
DX: N17.9 Acute kidney failure, unspecified (principal); I21.A1 Myocardial infarction type 2; I50.32 Chronic diastolic (congestive) heart failure; I25.810 Atherosclerosis of coronary artery bypass graft(s) without angina pectoris; K52.9 Noninfective gastroenteritis and colitis, unspecified; Z20.822 Contact with and (suspected) exposure to COVID-19; E78.5 Hyperlipidemia, unspecified; E86.0 Dehydration; I11.0 Hypertensive heart disease with heart failure; E78.00 Pure hypercholesterolemia, unspecified; Z95.0 Presence of cardiac pacemaker; Z95.1 Presence of aortocoronary bypass graft; I25.2 Old myocardial infarction; Z95.5 Presence of coronary angioplasty implant and graft; Z90.49 Acquired absence of other specified parts of digestive tract; Z87.891 Personal history of nicotine dependence
CPT/HCPCS: 36415; 80048; 80053; 84484; 87045; 87046; 87086; 87427; 87449; 93005; 93010; J1650; J2543; J3370; J3480; J3490; S0028

== ENCOUNTER 2022-01-14 16:19 | Inpatient (IN) | payer MEDICARE ==
[~2022-01-14 16:19] MED LIST changes: +Iopamidol-370 76% 500 ML 1 ML ONE; -Sodium Chloride 0.9% 15 ML NEB ONE
[2022-01-14] MEDS ORDERED: Acetaminophen 500 MG TAB ONE (16:40)
[2022-01-14] MEDS ORDERED: Ketorolac Tromethamine 30 MG/ML VIAL ONE (16:40)
[2022-01-14 17:07] LABS: #Eosinphils 0.2 thou/uL (0.0-0.7); #Lymphocytes 0.6 thou/uL (1.20-3.40); #Monocytes 0.8 thou/uL (0.11-0.59); #Neutrophils 6.7 thou/uL (1.40-6.50); %Basophils 0.1 % (0.0-1.0); %Eosinophils 1.9 % (0.0-10.0); %Lymphocytes 6.8 % (21.0-51.0); %Monocytes 9.7 % (0.0-10.0); %Neutrophils 81.4 % (42.0-75.0); Hemoglobin 13.8 g/dL (14.0-18.0); Mean Corpuscular Hemoglobin 30.2 pg (27.0-31.0); Mean Corpuscular Volume 91.6 fL (78.0-98.0); Platelet Count 130 thou/uL (130-400); RBC Distribution Width 14.5 % (11.5-14.5); Red Blood Cell (RBC) Count 4.58 mill/uL (4.70-6.10); White Blood Cell (WBC) Count 8.2 thou/uL (4.8-10.8)
[2022-01-14 17:32] LABS: ALT (SGPT) 24 U/L (8-55); AST (SGOT) 32 U/L (5-34); Albumin 3.6 g/dL (3.4-4.8); Alkaline Phosphatase 98 U/L (40-110); Anion Gap 14 mmol/L (10-20); BUN (Urea Nitrogen) 19 mg/dL (8.4-25.7); Calc. Creatinine Clearance 0 mL/min (70-130); Calcium 8.3 mg/dL (7.8-10.44); Carbon Dioxide 20 mmol/L (23-31); Chloride 102 mmol/L (98-107); Globulin 4.1 g/dL (2.4-3.5); Glucose 107 mg/dL (83-110); Potassium 4.4 mmol/L (3.5-5.1); Protein, Total 7.7 g/dL (5.8-8.1); Sodium 132 mmol/L (136-145)
[2022-01-14 17:51] LABS: CKMB 0.9 ng/mL (0-6.6)
[2022-01-14] MEDS ORDERED: Acetaminophen 325 MG TAB PO PRN (20:26)
[2022-01-14] MEDS ORDERED: Ondansetron ODT 4 MG TAB PO PRN (20:26)
[2022-01-14] MEDS ORDERED: Albuterol 200 PUFF (6.7GM INHALER) INH PRN (20:26)
[2022-01-14] MEDS ORDERED: Benzonatate 100 MG CAP PO PRN (20:26)
[2022-01-14] MEDS ORDERED: Lactated Ringer's 1,000 ML IV SCH (20:30)
[2022-01-14 20:40] LABS: Troponin I 0.072 ng/mL (< 0.028)
[2022-01-14 23:26] LABS: Troponin I 0.062 ng/mL (< 0.028)
[2022-01-14 23:33] VITALS: BMI 35.2
[2022-01-14] MEDS ORDERED: REMDESIVIR 200 MG in Sodium Chloride 0.9% 250 ML 210 ML IV SCH (23:59)
[2022-01-15 04:06] LABS: ALT (SGPT) 21 U/L (8-55); AST (SGOT) 32 U/L (5-34); Albumin 3.2 g/dL (3.4-4.8); Alkaline Phosphatase 82 U/L (40-110); Bilirubin, Direct 0.5 mg/dL (0.1-0.3); Bilirubin, Total 0.9 mg/dL (0.2-1.2); CRP (Inflammatory) 8.22 mg/dL (= or < 0.5); Protein, Total 6.8 g/dL (5.8-8.1)
[2022-01-15 09:02] LABS: Anion Gap 15 mmol/L (10-20); BUN (Urea Nitrogen) 17 mg/dL (8.4-25.7); Calc. Creatinine Clearance 121 mL/min (70-130); Calcium 8.2 mg/dL (7.8-10.44); Carbon Dioxide 18 mmol/L (23-31); Chloride 104 mmol/L (98-107); Glucose 84 mg/dL (83-110); Potassium 4.1 mmol/L (3.5-5.1); Sodium 133 mmol/L (136-145)
[2022-01-15] MEDS ORDERED: Ondansetron PF 4 MG/2 ML Vial IVP PRN (09:04)
[2022-01-15 09:06] LABS: Band 2 % (5-11); Hemoglobin 13.1 g/dL (14.0-18.0); Lymphocytes 10 % (21-51); MDiff Complete? YES; Mean Corpuscular HGB CONC 32.8 g/dL (32.0-36.0); Mean Corpuscular Hemoglobin 30.6 pg (27.0-31.0); Mean Corpuscular Volume 93.4 fL (78.0-98.0); Mean Platelet Volume 8.1 fL (7.4-10.4); Monocytes 15 % (0-10); Neutrophil 70 % (42-75); Platelet Count 112 thou/uL (130-400); Platelet Morphology Comment Appears Decreased; RBC Distribution Width 14.6 % (11.5-14.5); RBC Morphology Normal; Reactive Lymphocytes 2 % (0-10); Red Blood Cell (RBC) Count 4.29 mill/uL (4.70-6.10); White Blood Cell (WBC) Count 6.8 thou/uL (4.8-10.8)
[2022-01-15] MEDS: Dexamethasone 4 MG TAB PO SCH (11:26)
[2022-01-15] MEDS: Fish Oil 1,000 MG CAP PO SCH ×2 (11:26→22:07)
[2022-01-15] MEDS: Aspirin 81 mg Enteric Coated Tablet PO SCH (11:27)
[2022-01-15] MEDS: Enoxaparin Sodium 40 MG/0.4 ML SYRINGE SC SCH (11:27)
[2022-01-15] MEDS: Carvedilol 3.125 MG TAB PO SCH ×2 (11:27→22:07)
[2022-01-15] MEDS: Ezetimibe 10 MG TAB PO SCH (11:27)
[2022-01-15] MEDS: Lisinopril 2.5 MG TAB PO SCH (11:27)
[2022-01-15] MEDS ORDERED: REMDESIVIR 100 MG in Sodium Chloride 0.9% 250 ML 230 ML IV SCH (21:00)
[2022-01-15] MEDS: Atorvastatin Calcium 40 MG TAB PO SCH (22:06)
[2022-01-15] MEDS: REMDESIVIR 100 MG in Sodium Chloride 0.9% 250 ML 250 ML IV SCH (22:07)
[2022-01-16 00:36] LABS: SARS-CoV-2 NAA Rapid Test DETECTED (NotDetected)
[2022-01-16 05:20] LABS: ALT (SGPT) 24 U/L (8-55); AST (SGOT) 37 U/L (5-34); Albumin 3.2 g/dL (3.4-4.8); Alkaline Phosphatase 73 U/L (40-110); Bilirubin, Direct 0.4 mg/dL (0.1-0.3); Bilirubin, Total 0.8 mg/dL (0.2-1.2); Protein, Total 6.9 g/dL (5.8-8.1)
[2022-01-16] MEDS: Aspirin 81 mg Enteric Coated Tablet PO SCH (09:22)
[2022-01-16] MEDS: Fish Oil 1,000 MG CAP PO SCH ×2 (09:22→22:10)
[2022-01-16] MEDS: Dexamethasone 4 MG TAB PO SCH (09:22)
[2022-01-16] MEDS: Lisinopril 2.5 MG TAB PO SCH (09:22)
[2022-01-16] MEDS: Ezetimibe 10 MG TAB PO SCH (09:22)
[2022-01-16] MEDS: Carvedilol 3.125 MG TAB PO SCH ×2 (09:23→22:11)
[2022-01-16] MEDS: Enoxaparin Sodium 40 MG/0.4 ML SYRINGE SC SCH (09:23)
[2022-01-16] MEDS: Atorvastatin Calcium 40 MG TAB PO SCH (22:10)
[2022-01-16] MEDS: REMDESIVIR 100 MG in Sodium Chloride 0.9% 250 ML 250 ML IV SCH (22:10)
[2022-01-17 04:51] LABS: ALT (SGPT) 24 U/L (8-55); AST (SGOT) 34 U/L (5-34); Albumin 3.2 g/dL (3.4-4.8); Alkaline Phosphatase 72 U/L (40-110); Bilirubin, Direct 0.3 mg/dL (0.1-0.3); Bilirubin, Total 0.5 mg/dL (0.2-1.2); Protein, Total 6.9 g/dL (5.8-8.1)
[2022-01-17] MEDS: Ezetimibe 10 MG TAB PO SCH (08:56)
[2022-01-17] MEDS: Aspirin 81 mg Enteric Coated Tablet PO SCH (08:57)
[2022-01-17] MEDS: Fish Oil 1,000 MG CAP PO SCH ×2 (08:57→21:33)
[2022-01-17] MEDS: Dexamethasone 4 MG TAB PO SCH (08:57)
[2022-01-17] MEDS: Carvedilol 3.125 MG TAB PO SCH ×2 (08:57→21:33)
[2022-01-17] MEDS: Enoxaparin Sodium 40 MG/0.4 ML SYRINGE SC SCH (08:57)
[2022-01-17] MEDS: Lisinopril 2.5 MG TAB PO SCH (08:58)
[2022-01-17 17:28] LABS: Anion Gap 13 mmol/L (10-20); BUN (Urea Nitrogen) 27 mg/dL (8.4-25.7); Calc. Creatinine Clearance 114 mL/min (70-130); Calcium 8.6 mg/dL (7.8-10.44); Carbon Dioxide 25 mmol/L (23-31); Chloride 105 mmol/L (98-107); Glucose 125 mg/dL (83-110); Magnesium 1.9 mg/dL (1.6-2.6); Phosphorus 2.5 mg/dL (2.3-4.7); Potassium 4.6 mmol/L (3.5-5.1); Sodium 138 mmol/L (136-145)
[2022-01-17] MEDS: Atorvastatin Calcium 40 MG TAB PO SCH (21:33)
[2022-01-17] MEDS: REMDESIVIR 100 MG in Sodium Chloride 0.9% 250 ML 250 ML IV SCH (21:33)
[2022-01-18 07:09] LABS: ALT (SGPT) 23 U/L (8-55); AST (SGOT) 30 U/L (5-34); Albumin 3.2 g/dL (3.4-4.8); Alkaline Phosphatase 70 U/L (40-110); Bilirubin, Direct 0.2 mg/dL (0.1-0.3); Bilirubin, Total 0.3 mg/dL (0.2-1.2); Protein, Total 6.5 g/dL (5.8-8.1)
[2022-01-18] MEDS: Ezetimibe 10 MG TAB PO SCH (08:38)
[2022-01-18] MEDS: Carvedilol 3.125 MG TAB PO SCH (08:38)
[2022-01-18] MEDS: Lisinopril 2.5 MG TAB PO SCH (08:38)
[2022-01-18] MEDS: Dexamethasone 4 MG TAB PO SCH (08:38)
[2022-01-18] MEDS: Aspirin 81 mg Enteric Coated Tablet PO SCH (08:38)
[2022-01-18] MEDS: Fish Oil 1,000 MG CAP PO SCH (08:39)
[2022-01-18] MEDS: Enoxaparin Sodium 40 MG/0.4 ML SYRINGE SC SCH (09:15)
[2022-01-18 12:20] VITALS: BP 110/62; TEMP 97.9
== END 2022-01-18 14:40 | disposition home or self-care (01) | DRG 177 ==
LOC: ERS 16:19 → IMCU/EMU 21:01 → 2NO 01-15 15:42
PROVIDERS: ADMIT Family Medicine; ATTEND Family Medicine
PROC: XW033E5 Introduction of Remdesivir Anti-infective into Peripheral Vein, Percutaneous Approach, New Technology Group 5 (ICD-10-PCS; principal; 2022-01-14)
PROC: 8E0ZXY6 Isolation (ICD-10-PCS; 2022-01-14)
DX: U07.1 COVID-19 (principal); J12.82 Pneumonia due to coronavirus disease 2019; J96.01 Acute respiratory failure with hypoxia; I24.8 Other forms of acute ischemic heart disease; I50.32 Chronic diastolic (congestive) heart failure; J90 Pleural effusion, not elsewhere classified; J98.11 Atelectasis; I25.2 Old myocardial infarction; I25.10 Atherosclerotic heart disease of native coronary artery without angina pectoris; I11.0 Hypertensive heart disease with heart failure; I95.9 Hypotension, unspecified; R53.81 Other malaise; I44.0 Atrioventricular block, first degree; K31.9 Disease of stomach and duodenum, unspecified; E66.3 Overweight; E78.5 Hyperlipidemia, unspecified; Z95.1 Presence of aortocoronary bypass graft; Z79.899 Other long term (current) drug therapy; Z79.82 Long term (current) use of aspirin; Z95.5 Presence of coronary angioplasty implant and graft; Z90.49 Acquired absence of other specified parts of digestive tract; Z98.49 Cataract extraction status, unspecified eye; Z98.890 Other specified postprocedural states; Z87.891 Personal history of nicotine dependence; Z82.49 Family history of ischemic heart disease and other diseases of the circulatory system; Z80.1 Family history of malignant neoplasm of trachea, bronchus and lung; Z97.4 Presence of external hearing-aid; Z68.35 Body mass index [BMI] 35.0-35.9, adult; R79.89 Other specified abnormal findings of blood chemistry
CPT/HCPCS: 36415; 70450; 71045; 71275; 74177; 80048; 80053; 80076; 82553; 82728; 83605; 83615; 83735; 84100; 84145; 84484; 85025; 86140; 93005; 96374; J0248; J1650; J1885; J7050; J7120; J8540; Q9967; U0002

== ENCOUNTER 2022-01-30 20:18 | Inpatient (IN) | payer MEDICARE ==
[~2022-01-30 20:18] MED LIST changes: +Iopamidol 370 76% 100 ML VIAL ONE; -Iopamidol-370 76% 500 ML 1 ML ONE
[2022-01-30 21:40] VITALS: BMI 35.2
[2022-01-30] MEDS ORDERED: Bisacodyl 5 MG TAB PO PRN (21:42)
[2022-01-30] MEDS ORDERED: Nitroglycerin 0.4 MG TAB (25 Tab Bottle) SL PRN (21:42)
[2022-01-30] MEDS ORDERED: Ondansetron PF 4 MG/2 ML Vial IVP PRN (21:42)
[2022-01-30] MEDS ORDERED: Zolpidem Tartrate 5 MG TAB PO PRN (21:42)
[2022-01-30] MEDS ORDERED: HYDROcodone/Acetaminophen 7.5/325 mg Tablet PO PRN (21:42)
[2022-01-30] MEDS ORDERED: Aspirin Chewable 81 MG TAB PO SCH (22:00)
[2022-01-30] MEDS ORDERED: Sodium Chloride 0.9% 1,000 ML IV SCH (22:00)
[2022-01-30] MEDS: cefTRIAXone\\ROCEPHIN 2 GM in Sodium Chloride 0.9% 100 ML IVPB SCH (22:26)
[2022-01-30 22:36] LABS: Troponin I 0.039 ng/mL (< 0.028)
[2022-01-31 01:30] LABS: Troponin I 0.037 ng/mL (< 0.028)
[2022-01-31 05:31] LABS: #Eosinphils 0.2 thou/uL (0.0-0.7); #Lymphocytes 1.1 thou/uL (1.20-3.40); #Monocytes 1.7 thou/uL (0.11-0.59); #Neutrophils 10.8 thou/uL (1.40-6.50); %Basophils 0.3 % (0.0-1.0); %Eosinophils 1.7 % (0.0-10.0); %Monocytes 12.2 % (0.0-10.0); %Neutrophils 77.8 % (42.0-75.0); Mean Corpuscular HGB CONC 33.2 g/dL (32.0-36.0); Mean Corpuscular Hemoglobin 31.1 pg (27.0-31.0); Mean Corpuscular Volume 93.7 fL (78.0-98.0); Mean Platelet Volume 8.7 fL (7.4-10.4); Platelet Count 112 thou/uL (130-400); RBC Distribution Width 14.9 % (11.5-14.5); Red Blood Cell (RBC) Count 4.19 mill/uL (4.70-6.10); White Blood Cell (WBC) Count 13.8 thou/uL (4.8-10.8)
[2022-01-31 06:00] LABS: ALT (SGPT) 30 U/L (8-55); AST (SGOT) 20 U/L (5-34); Albumin 2.9 g/dL (3.4-4.8); Alkaline Phosphatase 85 U/L (40-110); Anion Gap 10 mmol/L (10-20); BUN (Urea Nitrogen) 32 mg/dL (8.4-25.7); Bilirubin, Total 0.8 mg/dL (0.2-1.2); Calc. Creatinine Clearance 116 mL/min (70-130); Calcium 8.1 mg/dL (7.8-10.44); Carbon Dioxide 20 mmol/L (23-31); Cardiac Risk 2.6 (Less than 4.5); Chloride 104 mmol/L (98-107); Cholesterol 95 mg/dl (< 200 Desired); Globulin 3.2 g/dL (2.4-3.5); Glucose 92 mg/dL (83-110); HDL Cholesterol 36 mg/dL (>60 Neg Risk); LDL Cholesterol, Calculated 44 mg/dL; Potassium 4.2 mmol/L (3.5-5.1); Protein, Total 6.1 g/dL (5.8-8.1); Sodium 130 mmol/L (136-145); Triglycerides 74 mg/dL (Less than 150)
[2022-01-31] MEDS: Aspirin Chewable 81 MG TAB PO SCH (08:41)
[2022-01-31] MEDS: Clopidogrel Bisulfate 75 MG TAB PO SCH (08:42)
[2022-01-31] MEDS: Enoxaparin Sodium 40 MG/0.4 ML SYRINGE SC SCH (08:42)
[2022-01-31] MEDS ORDERED: Albuterol Sulfate 1.25 MG/3 ML NEB NEB PRN (13:52)
[2022-01-31 14:52] LABS: HIV (1/2) Antibody/Antigen Non-Reactive (NonReactive); HIV 1/2 INDEX 0.13 S/CO (<1.00)
[2022-01-31 15:52] LABS: SARS-CoV-2 NAA Rapid Test DETECTED (NotDetected)
[2022-01-31] MEDS: Carvedilol 3.125 MG TAB PO SCH (17:49)
[2022-01-31] MEDS: cefTRIAXone\\ROCEPHIN 2 GM in Sodium Chloride 0.9% 100 ML IVPB SCH (20:45)
[2022-01-31] MEDS: Atorvastatin Calcium 40 MG TAB PO SCH (20:46)
[2022-02-01 05:30] LABS: #Eosinphils 0.2 thou/uL (0.0-0.7); #Lymphocytes 0.8 thou/uL (1.20-3.40); #Monocytes 1.3 thou/uL (0.11-0.59); #Neutrophils 8.8 thou/uL (1.40-6.50); %Basophils 0.4 % (0.0-1.0); %Lymphocytes 7.5 % (21.0-51.0); %Monocytes 11.7 % (0.0-10.0); %Neutrophils 78.4 % (42.0-75.0); Hemoglobin 13.1 g/dL (14.0-18.0); Mean Corpuscular HGB CONC 33.8 g/dL (32.0-36.0); Mean Corpuscular Hemoglobin 31.1 pg (27.0-31.0); Mean Platelet Volume 9.1 fL (7.4-10.4); Platelet Count 112 thou/uL (130-400); RBC Distribution Width 14.9 % (11.5-14.5); Red Blood Cell (RBC) Count 4.23 mill/uL (4.70-6.10); White Blood Cell (WBC) Count 11.2 thou/uL (4.8-10.8)
[2022-02-01 05:48] LABS: Anion Gap 11 mmol/L (10-20); BUN (Urea Nitrogen) 20 mg/dL (8.4-25.7); Calc. Creatinine Clearance 134 mL/min (70-130); Calcium 8.4 mg/dL (7.8-10.44); Carbon Dioxide 20 mmol/L (23-31); Chloride 105 mmol/L (98-107); Glucose 104 mg/dL (83-110); Potassium 4.4 mmol/L (3.5-5.1); Sodium 132 mmol/L (136-145)
[2022-02-01] MEDS: Enoxaparin Sodium 40 MG/0.4 ML SYRINGE SC SCH (08:17)
[2022-02-01] MEDS: Aspirin Chewable 81 MG TAB PO SCH (08:18)
[2022-02-01] MEDS: Clopidogrel Bisulfate 75 MG TAB PO SCH (08:18)
[2022-02-01] MEDS: Multivit, Therapeutic 1 TAB PO SCH (08:18)
[2022-02-01] MEDS: Carvedilol 3.125 MG TAB PO SCH ×2 (08:18→17:54)
[2022-02-01] MEDS: Lisinopril 2.5 MG TAB PO SCH (08:18)
[2022-02-01] MEDS: Ezetimibe 10 MG TAB PO SCH (08:18)
[2022-02-01] MEDS: Stress 600 With Zinc 1 TAB PO SCH (08:18)
[2022-02-01] MEDS ORDERED: Furosemide 20 MG TAB PO SCH (09:00)
[2022-02-01] MEDS: Atorvastatin Calcium 40 MG TAB PO SCH (20:24)
[2022-02-02 05:05] LABS: #Eosinphils 0.3 thou/uL (0.0-0.7); #Lymphocytes 1.1 thou/uL (1.20-3.40); #Monocytes 1.1 thou/uL (0.11-0.59); #Neutrophils 8.1 thou/uL (1.40-6.50); %Basophils 0.1 % (0.0-1.0); %Eosinophils 2.9 % (0.0-10.0); %Lymphocytes 10.6 % (21.0-51.0); %Monocytes 10.6 % (0.0-10.0); %Neutrophils 75.8 % (42.0-75.0); Hemoglobin 12.9 g/dL (14.0-18.0); Mean Corpuscular HGB CONC 33.5 g/dL (32.0-36.0); Mean Corpuscular Hemoglobin 31.2 pg (27.0-31.0); Mean Corpuscular Volume 93.1 fL (78.0-98.0); Mean Platelet Volume 9.2 fL (7.4-10.4); Platelet Count 107 thou/uL (130-400); RBC Distribution Width 14.6 % (11.5-14.5); Red Blood Cell (RBC) Count 4.12 mill/uL (4.70-6.10); White Blood Cell (WBC) Count 10.6 thou/uL (4.8-10.8)
[2022-02-02 05:16] LABS: Anion Gap 12 mmol/L (10-20); BUN (Urea Nitrogen) 20 mg/dL (8.4-25.7); Calc. Creatinine Clearance 111 mL/min (70-130); Calcium 8.2 mg/dL (7.8-10.44); Carbon Dioxide 24 mmol/L (23-31); Chloride 103 mmol/L (98-107); Glucose 108 mg/dL (83-110); Potassium 4.6 mmol/L (3.5-5.1); Sodium 134 mmol/L (136-145)
[2022-02-02] MEDS: Carvedilol 3.125 MG TAB PO SCH (08:55)
[2022-02-02] MEDS: Aspirin Chewable 81 MG TAB PO SCH (08:55)
[2022-02-02] MEDS: Clopidogrel Bisulfate 75 MG TAB PO SCH (08:55)
[2022-02-02] MEDS: Lisinopril 2.5 MG TAB PO SCH (08:56)
[2022-02-02] MEDS: Ezetimibe 10 MG TAB PO SCH (08:56)
[2022-02-02] MEDS: Enoxaparin Sodium 40 MG/0.4 ML SYRINGE SC SCH (08:56)
[2022-02-02] MEDS: Stress 600 With Zinc 1 TAB PO SCH (08:57)
[2022-02-02] MEDS: Multivit, Therapeutic 1 TAB PO SCH (08:57)
[2022-02-02] MEDS ORDERED: Furosemide 20 MG TAB PO SCH (09:15)
[2022-02-02] MEDS: Tuberculin PPD 0.1 ML VIAL I-DERMAL SCH (12:10)
[2022-02-02] MEDS ORDERED: Carvedilol 3.125 MG TAB PO SCH (17:00)
[2022-02-02] MEDS: Atorvastatin Calcium 40 MG TAB PO SCH (20:22)
[2022-02-03 08:22] LABS: #Basophils 0.1 thou/uL (0.0-0.2); #Eosinphils 0.3 thou/uL (0.0-0.7); #Monocytes 1.1 thou/uL (0.11-0.59); %Basophils 0.6 % (0.0-1.0); %Eosinophils 2.5 % (0.0-10.0); %Lymphocytes 9.4 % (21.0-51.0); %Monocytes 10.8 % (0.0-10.0); %Neutrophils 76.7 % (42.0-75.0); Hemoglobin 12.8 g/dL (14.0-18.0); Mean Corpuscular HGB CONC 33.8 g/dL (32.0-36.0); Mean Corpuscular Hemoglobin 31.5 pg (27.0-31.0); Mean Corpuscular Volume 93.3 fL (78.0-98.0); Mean Platelet Volume 9.9 fL (7.4-10.4); Platelet Count 111 thou/uL (130-400); RBC Distribution Width 14.6 % (11.5-14.5); Red Blood Cell (RBC) Count 4.05 mill/uL (4.70-6.10); White Blood Cell (WBC) Count 10.4 thou/uL (4.8-10.8)
[2022-02-03 08:25] LABS: Anion Gap 12 mmol/L (10-20); BUN (Urea Nitrogen) 21 mg/dL (8.4-25.7); Calc. Creatinine Clearance 117 mL/min (70-130); Calcium 8.6 mg/dL (7.8-10.44); Carbon Dioxide 23 mmol/L (23-31); Chloride 103 mmol/L (98-107); Glucose 98 mg/dL (83-110); Potassium 4.2 mmol/L (3.5-5.1); Sodium 134 mmol/L (136-145)
[2022-02-03] MEDS ORDERED: Carvedilol 3.125 MG TAB PO SCH ×2 (09:45→17:00)
[2022-02-03] MEDS: Enoxaparin Sodium 40 MG/0.4 ML SYRINGE SC SCH (10:11)
[2022-02-03] MEDS: Aspirin Chewable 81 MG TAB PO SCH (10:11)
[2022-02-03] MEDS: Ezetimibe 10 MG TAB PO SCH (10:11)
[2022-02-03] MEDS: Clopidogrel Bisulfate 75 MG TAB PO SCH (10:11)
[2022-02-03] MEDS: Stress 600 With Zinc 1 TAB PO SCH (10:12)
[2022-02-03] MEDS: Multivit, Therapeutic 1 TAB PO SCH (10:12)
[2022-02-03] MEDS: Lisinopril 2.5 MG TAB PO SCH (10:12)
[2022-02-03] MEDS: Tuberculin PPD 0.1 ML VIAL I-DERMAL SCH (16:42)
[2022-02-03] MEDS: Atorvastatin Calcium 40 MG TAB PO SCH (20:07)
[2022-02-03] MEDS: Acetaminophen 325 MG TAB PO PRN (20:09)
[2022-02-03 20:38] LABS: Histoplasma Yeast AB (CF) Negative (Neg:<1:2)
[2022-02-04 02:25] LABS: QuantiFERON-TB Gold Plus Negative (Negative)
[2022-02-04] MEDS: Acetaminophen 325 MG TAB PO PRN (03:35)
[2022-02-04] MEDS ORDERED: READ PPD TEST SITE PO SCH (09:00)
[2022-02-04] MEDS: Enoxaparin Sodium 40 MG/0.4 ML SYRINGE SC SCH (09:49)
[2022-02-04] MEDS: Aspirin Chewable 81 MG TAB PO SCH (09:56)
[2022-02-04] MEDS: Clopidogrel Bisulfate 75 MG TAB PO SCH (09:56)
[2022-02-04] MEDS: Furosemide 20 MG TAB PO SCH (09:57)
[2022-02-04] MEDS: Ezetimibe 10 MG TAB PO SCH (09:57)
[2022-02-04] MEDS: Multivit, Therapeutic 1 TAB PO SCH (09:57)
[2022-02-04] MEDS: Lisinopril 2.5 MG TAB PO SCH (09:57)
[2022-02-04] MEDS: Stress 600 With Zinc 1 TAB PO SCH (09:58)
[2022-02-04] MEDS ORDERED: Regadenoson 0.4 MG/5 ML SYRINGE ONE (10:01)
[2022-02-04] MEDS: Tuberculin PPD 0.1 ML VIAL I-DERMAL SCH (16:02)
[2022-02-04] MEDS: Carvedilol 3.125 MG TAB PO SCH (17:46)
[2022-02-04 18:37] LABS: A. flavus Negative (Neg:<1:1); A. fumigatus Negative (Neg:<1:1); A. niger Negative (Neg:<1:1)
[2022-02-04] MEDS: Atorvastatin Calcium 40 MG TAB PO SCH (20:45)
[2022-02-05 05:33] LABS: Anion Gap 14 mmol/L (10-20); BUN (Urea Nitrogen) 19 mg/dL (8.4-25.7); Calc. Creatinine Clearance 117 mL/min (70-130); Calcium 9.1 mg/dL (7.8-10.44); Carbon Dioxide 22 mmol/L (23-31); Chloride 105 mmol/L (98-107); Glucose 102 mg/dL (83-110); Potassium 4.5 mmol/L (3.5-5.1); Sodium 136 mmol/L (136-145)
[2022-02-05] MEDS: Aspirin Chewable 81 MG TAB PO SCH (08:45)
[2022-02-05] MEDS: Stress 600 With Zinc 1 TAB PO SCH (08:45)
[2022-02-05] MEDS: Lisinopril 2.5 MG TAB PO SCH (08:45)
[2022-02-05] MEDS: Clopidogrel Bisulfate 75 MG TAB PO SCH (08:46)
[2022-02-05] MEDS: Multivit, Therapeutic 1 TAB PO SCH (08:46)
[2022-02-05] MEDS: Carvedilol 3.125 MG TAB PO SCH ×2 (08:46→17:29)
[2022-02-05] MEDS: Furosemide 20 MG TAB PO SCH (08:46)
[2022-02-05] MEDS: Ezetimibe 10 MG TAB PO SCH (08:46)
[2022-02-05] MEDS: Enoxaparin Sodium 40 MG/0.4 ML SYRINGE SC SCH (08:47)
[2022-02-05] MEDS: Atorvastatin Calcium 40 MG TAB PO SCH (22:10)
[2022-02-06] MEDS: Stress 600 With Zinc 1 TAB PO SCH (09:11)
[2022-02-06] MEDS: Lisinopril 2.5 MG TAB PO SCH (09:11)
[2022-02-06] MEDS: Ezetimibe 10 MG TAB PO SCH (09:12)
[2022-02-06] MEDS: Furosemide 20 MG TAB PO SCH (09:12)
[2022-02-06] MEDS: Multivit, Therapeutic 1 TAB PO SCH (09:12)
[2022-02-06] MEDS: Clopidogrel Bisulfate 75 MG TAB PO SCH (09:12)
[2022-02-06] MEDS: Aspirin Chewable 81 MG TAB PO SCH (09:12)
[2022-02-06] MEDS: Carvedilol 3.125 MG TAB PO SCH ×2 (09:12→17:44)
[2022-02-06] MEDS: Enoxaparin Sodium 40 MG/0.4 ML SYRINGE SC SCH (09:12)
[2022-02-06 09:18] LABS: Anion Gap 13 mmol/L (10-20); BUN (Urea Nitrogen) 17 mg/dL (8.4-25.7); Calc. Creatinine Clearance 111 mL/min (70-130); Calcium 8.5 mg/dL (7.8-10.44); Carbon Dioxide 24 mmol/L (23-31); Chloride 103 mmol/L (98-107); Glucose 141 mg/dL (83-110); Potassium 4.3 mmol/L (3.5-5.1); Sodium 136 mmol/L (136-145)
[2022-02-06] MEDS: Atorvastatin Calcium 40 MG TAB PO SCH (21:35)
[2022-02-07 06:01] LABS: Anion Gap 13 mmol/L (10-20); BUN (Urea Nitrogen) 19 mg/dL (8.4-25.7); Calc. Creatinine Clearance 112 mL/min (70-130); Calcium 9.2 mg/dL (7.8-10.44); Carbon Dioxide 25 mmol/L (23-31); Chloride 104 mmol/L (98-107); Glucose 104 mg/dL (83-110); Potassium 4.2 mmol/L (3.5-5.1); Sodium 138 mmol/L (136-145)
[2022-02-07] MEDS: Aspirin Chewable 81 MG TAB PO SCH (07:58)
[2022-02-07] MEDS: Clopidogrel Bisulfate 75 MG TAB PO SCH (07:59)
[2022-02-07] MEDS: Ezetimibe 10 MG TAB PO SCH (07:59)
[2022-02-07] MEDS: Enoxaparin Sodium 40 MG/0.4 ML SYRINGE SC SCH (07:59)
[2022-02-07] MEDS: Carvedilol 3.125 MG TAB PO SCH ×2 (07:59→16:35)
[2022-02-07] MEDS: Stress 600 With Zinc 1 TAB PO SCH (08:00)
[2022-02-07] MEDS: Lisinopril 2.5 MG TAB PO SCH (08:00)
[2022-02-07] MEDS: Furosemide 20 MG TAB PO SCH (08:00)
[2022-02-07] MEDS: Multivit, Therapeutic 1 TAB PO SCH (08:00)
[2022-02-07] MEDS: Atorvastatin Calcium 40 MG TAB PO SCH (20:39)
[2022-02-08] MEDS: Aspirin Chewable 81 MG TAB PO SCH (08:39)
[2022-02-08] MEDS: Ezetimibe 10 MG TAB PO SCH (08:39)
[2022-02-08] MEDS: Clopidogrel Bisulfate 75 MG TAB PO SCH (08:39)
[2022-02-08] MEDS: Furosemide 20 MG TAB PO SCH (08:39)
[2022-02-08] MEDS: Carvedilol 3.125 MG TAB PO SCH (08:39)
[2022-02-08] MEDS: Enoxaparin Sodium 40 MG/0.4 ML SYRINGE SC SCH (08:39)
[2022-02-08] MEDS: Stress 600 With Zinc 1 TAB PO SCH (08:40)
[2022-02-08] MEDS: Multivit, Therapeutic 1 TAB PO SCH (08:40)
[2022-02-08] MEDS: Lisinopril 2.5 MG TAB PO SCH (08:40)
[2022-02-08 12:21] VITALS: BP 114/55; TEMP 98
== END 2022-02-08 12:45 | DRG 206 ==
LOC: 2SW 21:27 → OBSVTOIN 21:42 → 2SW 01-31 17:36
PROVIDERS: ADMIT Student in an Organized Health Care Education/Training Program; ATTEND Internal Medicine
DX: J98.11 Atelectasis (principal); J90 Pleural effusion, not elsewhere classified; I47.2 Ventricular tachycardia; I50.32 Chronic diastolic (congestive) heart failure; Z77.090 Contact with and (suspected) exposure to asbestos; U09.9 Post COVID-19 condition, unspecified; R77.8 Other specified abnormalities of plasma proteins; I25.10 Atherosclerotic heart disease of native coronary artery without angina pectoris; E78.5 Hyperlipidemia, unspecified; R53.83 Other fatigue; R53.1 Weakness; I11.0 Hypertensive heart disease with heart failure; I49.3 Ventricular premature depolarization; Z87.01 Personal history of pneumonia (recurrent); Z95.1 Presence of aortocoronary bypass graft; Z79.899 Other long term (current) drug therapy; Z90.49 Acquired absence of other specified parts of digestive tract; Z98.890 Other specified postprocedural states; Z87.891 Personal history of nicotine dependence; Z79.82 Long term (current) use of aspirin; Z79.52 Long term (current) use of systemic steroids
CPT/HCPCS: 36415; 71260; 78452; 80048; 80053; 80061; 83880; 84145; 84484; 85025; 86480; 86580; 86606; 86698; 87040; 87149; 87385; 87389; 87633; 93017; 93306; 94760; A9500; J0696; J1650; J1956; J2405; J2785; J3490; J7050; Q9967

== ENCOUNTER 2023-05-27 22:38 | Inpatient (IN) | payer MEDICARE ==
[2023-05-28 00:15] VITALS: BMI 37.2
[2023-05-28] MEDS ORDERED: Ondansetron PF 4 MG/2 ML Vial IVP PRN (00:40)
[2023-05-28] MEDS ORDERED: Acetaminophen 650 MG Suppository PR PRN (00:40)
[2023-05-28] MEDS ORDERED: Ondansetron ODT 4 MG TAB PO PRN (00:40)
[2023-05-28 01:11] LABS: Troponin I 0.055 ng/mL (< 0.028)
[2023-05-28 02:06] LABS: SARS-CoV-2 NAA Rapid Test Not Detected (NotDetected)
[2023-05-28] MEDS ORDERED: Electrolyte Replacement Protocol 1 EACH FS SCH (02:15)
[2023-05-28] MEDS ORDERED: Magnesium 2 GM/50 ML(in water) 2 GM in Premix Bag 1 BAG IVPB SCH (02:30)
[2023-05-28 03:27] LABS: #Basophils 0.1 thou/uL (0.0-0.2); #Eosinphils 0.4 thou/uL (0.0-0.7); #Monocytes 1.1 thou/uL (0.11-0.59); %Basophils 0.7 % (0.0-1.0); %Eosinophils 5.5 % (0.0-10.0); %Lymphocytes 11.8 % (21.0-51.0); %Monocytes 14.6 % (0.0-10.0); %Neutrophils 67.1 % (42.0-75.0); Hematocrit 33.9 % (42.0-52.0); Hemoglobin 11.6 g/dL (14.0-18.0); Mean Corpuscular HGB CONC 34.2 g/dL (32.0-36.0); Mean Corpuscular Hemoglobin 31.4 pg (27.0-31.0); Mean Corpuscular Volume 91.6 fl (78.0-98.0); Mean Platelet Volume 10.7 fL (7.4-10.4); Platelet Count 146 10x3/uL (130-400); RBC Distribution Width 13.3 % (11.5-14.5); White Blood Cell (WBC) Count 7.5 10x3/uL (4.8-10.8)
[2023-05-28 03:50] LABS: Anion Gap 14 mmol/L (10-20); BUN (Urea Nitrogen) 27 mg/dL (8.4-25.7); Carbon Dioxide 23 mmol/L (23-31); Chloride 106 mmol/L (98-107); Potassium 4.5 mmol/L (3.5-5.1); Sodium 138 mmol/L (136-145)
[2023-05-28 03:51] LABS: ALT (SGPT) 19 U/L (8-55); AST (SGOT) 24 U/L (5-34); Albumin 3.3 g/dL (3.4-4.8); Alkaline Phosphatase 80 U/L (40-110); Bilirubin, Total 0.6 mg/dL (0.2-1.2); Calc. Creatinine Clearance 102 mL/min (70-130); Calcium 8.3 mg/dL (7.8-10.44); Estimated GFR 80; Globulin 3.2 g/dL (2.4-3.5); Glucose 115 mg/dL (83-110); Protein, Total 6.5 g/dL (5.8-8.1)
[2023-05-28] MEDS ORDERED: Benzonatate 100 MG CAP PO PRN (08:07)
[2023-05-28] MEDS ORDERED: Albuterol 200 PUFF (6.7GM INHALER) INH PRN (08:07)
[2023-05-28] MEDS: Clopidogrel Bisulfate 75 MG TAB PO SCH (08:55)
[2023-05-28] MEDS: Ezetimibe 10 MG TAB PO SCH (08:55)
[2023-05-28] MEDS: Sertraline 100 MG TAB PO SCH (08:55)
[2023-05-28 10:12] LABS: Troponin I 0.031 ng/mL (< 0.028)
[2023-05-28 12:52] LABS: Troponin I 0.032 ng/mL (< 0.028)
[2023-05-28 17:04] LABS: Troponin I 0.042 ng/mL (< 0.028)
[2023-05-28] MEDS: Acetaminophen 325 MG TAB PO PRN (21:04)
[2023-05-28] MEDS: Atorvastatin Calcium 40 MG TAB PO SCH (21:05)
[2023-05-29 00:38] LABS: Bacteria/HPF None Seen HPF (None Seen); Bilirubin Negative (Negative); Blood, Urine Negative (Negative); CAUTI Indications for Culture Alt mental st,lethar; Clarity Clear (Clear); Glucose, Urine (Dipstick) Normal (Negative); Ketone, Urine Negative (Negative); Leukocyte Negative Leu/uL (Negative); Nitrite Negative (Negative); Protein, Urine (Dipstick) Negative (Neg-Trace); RBC/HPF 0-3 HPF (0-3); Specific Gravity, Urine 1.017 (1.002-1.036); Squamous Epithelial 0-3 HPF (0-3); Urobilinogen Normal mg/dL (Less than 2); WBC/HPF 0-3 HPF (0-3); pH, Urine 5.5 (5.0-9.0)
[2023-05-29 00:39] LABS: Sperm/HPF Rare HPF (None Seen)
[2023-05-29 00:40] LABS: Urine Culture Reflex No No
[2023-05-29 04:48] LABS: Anion Gap 11 mmol/L (10-20); BUN (Urea Nitrogen) 20 mg/dL (8.4-25.7); Calc. Creatinine Clearance 108 mL/min (70-130); Calcium 8.8 mg/dL (7.8-10.44); Carbon Dioxide 24 mmol/L (23-31); Chloride 102 mmol/L (98-107); Estimated GFR 86; Glucose 112 mg/dL (83-110); Sodium 133 mmol/L (136-145)
[2023-05-29] MEDS ORDERED: Magnesium 2 GM/50 ML(in water) 2 GM in Premix Bag 1 BAG IVPB SCH (08:00)
[2023-05-29] MEDS: Clopidogrel Bisulfate 75 MG TAB PO SCH (10:42)
[2023-05-29] MEDS: Ezetimibe 10 MG TAB PO SCH (10:42)
[2023-05-29] MEDS: Aspirin Chewable 81 MG TAB PO SCH (10:42)
[2023-05-29 15:00] LABS: ALT (SGPT) 17 U/L (8-55); AST (SGOT) 31 U/L (5-34); Albumin 3.3 g/dL (3.4-4.8); Alkaline Phosphatase 76 U/L (40-110); Bilirubin, Direct 0.6 mg/dL (0.1-0.3); Bilirubin, Total 1.1 mg/dL (0.2-1.2); Protein, Total 6.5 g/dL (5.8-8.1)
[2023-05-29] MEDS: Carvedilol 3.125 MG TAB PO SCH (18:05)
[2023-05-29 18:49] LABS: Legionella Urinary Ag Negative (Negative); Strep pneumo Urine Ag NEGATIVE (NEGATIVE)
[2023-05-29] MEDS: Atorvastatin Calcium 40 MG TAB PO SCH (20:15)
[2023-05-30 04:08] LABS: #Basophils 0.1 thou/uL (0.0-0.2); #Eosinphils 0.4 thou/uL (0.0-0.7); #Monocytes 1.4 thou/uL (0.11-0.59); #Neutrophils 7.8 thou/uL (1.40-6.50); %Basophils 0.6 % (0.0-1.0); %Eosinophils 3.7 % (0.0-10.0); %Lymphocytes 11.2 % (21.0-51.0); %Monocytes 12.5 % (0.0-10.0); %Neutrophils 71.6 % (42.0-75.0); Hematocrit 34.3 % (42.0-52.0); Hemoglobin 11.7 g/dL (14.0-18.0); Mean Corpuscular HGB CONC 34.1 g/dL (32.0-36.0); Mean Corpuscular Volume 90.7 fl (78.0-98.0); Mean Platelet Volume 10.3 fL (7.4-10.4); Platelet Count 165 10x3/uL (130-400); RBC Distribution Width 13.2 % (11.5-14.5); Red Blood Cell (RBC) Count 3.78 mill/uL (4.70-6.10); White Blood Cell (WBC) Count 10.9 10x3/uL (4.8-10.8)
[2023-05-30] MEDS: Acetaminophen 325 MG TAB PO PRN ×2 (04:35→20:27)
[2023-05-30 08:26] LABS: Albumin 3.4 g/dL (3.4-4.8); Chloride 102 mmol/L (98-107); Potassium 4.1 mmol/L (3.5-5.1)
[2023-05-30 08:27] LABS: ALT (SGPT) 20 U/L (8-55); AST (SGOT) 38 U/L (5-34); Alkaline Phosphatase 74 U/L (40-110); Anion Gap 12 mmol/L (10-20); BUN (Urea Nitrogen) 16 mg/dL (8.4-25.7); Bilirubin, Direct 0.5 mg/dL (0.1-0.3); Bilirubin, Total 0.9 mg/dL (0.2-1.2); CK (CPK) 252 U/L (30-200); Calc. Creatinine Clearance 109 mL/min (70-130); Calcium 8.8 mg/dL (7.8-10.44); Carbon Dioxide 25 mmol/L (23-31); Estimated GFR 90; Glucose 118 mg/dL (83-110); Magnesium 2.1 mg/dL (1.6-2.6); Protein, Total 6.9 g/dL (5.8-8.1); Sodium 135 mmol/L (136-145)
[2023-05-30] MEDS: Aspirin Chewable 81 MG TAB PO SCH (09:54)
[2023-05-30] MEDS: Clopidogrel Bisulfate 75 MG TAB PO SCH (09:55)
[2023-05-30] MEDS: Carvedilol 3.125 MG TAB PO SCH ×2 (09:55→16:21)
[2023-05-30] MEDS: Sertraline 100 MG TAB PO SCH (09:55)
[2023-05-30] MEDS: Ezetimibe 10 MG TAB PO SCH (09:55)
[2023-05-30] MEDS: Atorvastatin Calcium 40 MG TAB PO SCH (20:27)
[2023-05-31 04:54] LABS: #Basophils 0.1 thou/uL (0.0-0.2); #Eosinphils 0.6 thou/uL (0.0-0.7); #Monocytes 1.3 thou/uL (0.11-0.59); #Neutrophils 7.1 thou/uL (1.40-6.50); %Basophils 0.7 % (0.0-1.0); %Eosinophils 5.4 % (0.0-10.0); %Lymphocytes 10.7 % (21.0-51.0); %Neutrophils 69.8 % (42.0-75.0); Hematocrit 34.5 % (42.0-52.0); Hemoglobin 11.7 g/dL (14.0-18.0); Mean Corpuscular HGB CONC 33.9 g/dL (32.0-36.0); Mean Corpuscular Volume 91.3 fl (78.0-98.0); Mean Platelet Volume 10.8 fL (7.4-10.4); Platelet Count 165 10x3/uL (130-400); RBC Distribution Width 13.4 % (11.5-14.5); Red Blood Cell (RBC) Count 3.78 mill/uL (4.70-6.10); White Blood Cell (WBC) Count 10.2 10x3/uL (4.8-10.8)
[2023-05-31 05:23] LABS: Anion Gap 14 mmol/L (10-20); BUN (Urea Nitrogen) 18 mg/dL (8.4-25.7); Calc. Creatinine Clearance 120 mL/min (70-130); Calcium 8.7 mg/dL (7.8-10.44); Carbon Dioxide 23 mmol/L (23-31); Chloride 102 mmol/L (98-107); Estimated GFR 93; Glucose 103 mg/dL (83-110); Potassium 4.2 mmol/L (3.5-5.1); Sodium 135 mmol/L (136-145)
[2023-05-31] MEDS ORDERED: Magnesium 2 GM/50 ML(in water) 2 GM in Premix Bag 1 BAG IVPB SCH (08:00)
[2023-05-31] MEDS: Ezetimibe 10 MG TAB PO SCH (11:31)
[2023-05-31] MEDS: Carvedilol 3.125 MG TAB PO SCH ×2 (11:31→16:48)
[2023-05-31] MEDS: Clopidogrel Bisulfate 75 MG TAB PO SCH (11:31)
[2023-05-31] MEDS: Sertraline 100 MG TAB PO SCH (11:31)
[2023-05-31] MEDS: Aspirin Chewable 81 MG TAB PO SCH (11:31)
[2023-05-31] MEDS ORDERED: Regadenoson 0.4 MG/5 ML SYRINGE ONE (13:51)
[2023-05-31] MEDS: Atorvastatin Calcium 40 MG TAB PO SCH (21:27)
[2023-06-01 05:14] LABS: #Basophils 0.1 thou/uL (0.0-0.2); #Eosinphils 0.4 thou/uL (0.0-0.7); #Monocytes 0.8 thou/uL (0.11-0.59); #Neutrophils 6.4 thou/uL (1.40-6.50); %Basophils 0.7 % (0.0-1.0); %Eosinophils 5.2 % (0.0-10.0); %Lymphocytes 8.6 % (21.0-51.0); %Monocytes 9.6 % (0.0-10.0); %Neutrophils 75.3 % (42.0-75.0); Hematocrit 34.8 % (42.0-52.0); Mean Corpuscular HGB CONC 34.5 g/dL (32.0-36.0); Mean Corpuscular Hemoglobin 31.9 pg (27.0-31.0); Mean Corpuscular Volume 92.6 fl (78.0-98.0); Mean Platelet Volume 10.5 fL (7.4-10.4); Platelet Count 175 10x3/uL (130-400); RBC Distribution Width 13.4 % (11.5-14.5); Red Blood Cell (RBC) Count 3.76 mill/uL (4.70-6.10); White Blood Cell (WBC) Count 8.5 10x3/uL (4.8-10.8)
[2023-06-01 05:36] LABS: Anion Gap 16 mmol/L (10-20); BUN (Urea Nitrogen) 23 mg/dL (8.4-25.7); Calc. Creatinine Clearance 103 mL/min (70-130); Carbon Dioxide 23 mmol/L (23-31); Chloride 101 mmol/L (98-107); Estimated GFR 84; Glucose 117 mg/dL (83-110); Magnesium 2.2 mg/dL (1.6-2.6); Sodium 136 mmol/L (136-145)
[2023-06-01] MEDS: Carvedilol 3.125 MG TAB PO SCH (09:03)
[2023-06-01] MEDS: Clopidogrel Bisulfate 75 MG TAB PO SCH (09:03)
[2023-06-01] MEDS: Ezetimibe 10 MG TAB PO SCH (09:03)
[2023-06-01] MEDS: Sertraline 100 MG TAB PO SCH (09:03)
[2023-06-01] MEDS: Aspirin Chewable 81 MG TAB PO SCH (09:03)
[2023-06-01 11:43] VITALS: BP 138/66; TEMP 98.5
== END 2023-06-01 14:20 | disposition swing bed (61) | DRG 291 ==
LOC: 2NO 23:26 → UNDOADMOB 23:26 → 2NO 05-28 00:40 → OBSVTOIN 05-29 11:40
PROVIDERS: ADMIT Student in an Organized Health Care Education/Training Program; ATTEND Family Medicine
PROC: 4A00X4Z Measurement of Central Nervous Electrical Activity, External Approach (ICD-10-PCS; principal; 2023-05-29)
DX: I11.0 Hypertensive heart disease with heart failure (principal); G93.41 Metabolic encephalopathy; I47.20 Ventricular tachycardia, unspecified; I50.9 Heart failure, unspecified; E78.5 Hyperlipidemia, unspecified; I25.10 Atherosclerotic heart disease of native coronary artery without angina pectoris; R50.9 Fever, unspecified; E66.9 Obesity, unspecified; R53.1 Weakness; Z79.82 Long term (current) use of aspirin; Z95.1 Presence of aortocoronary bypass graft; Z90.49 Acquired absence of other specified parts of digestive tract; Z87.891 Personal history of nicotine dependence; Z79.899 Other long term (current) drug therapy; Z68.36 Body mass index [BMI] 36.0-36.9, adult; Z20.822 Contact with and (suspected) exposure to COVID-19; Z79.02 Long term (current) use of antithrombotics/antiplatelets
CPT/HCPCS: 36415; 70551; 71045; 78452; 80048; 80076; 81001; 82550; 83735; 84145; 84484; 85025; 86140; 87040; 87449; 87633; 87899; 93005; 93010; 93017; 93306; 95816; 95819; A9500; J1650; J2785; J3475; U0002

== ENCOUNTER 2024-08-27 17:01 | Inpatient (IN) | payer MEDICARE, SELFPAY ==
[~2024-08-27 17:01] MED LIST changes: -Iopamidol 370 76% 100 ML VIAL ONE; +Iopamidol-370 76% 500 ML MDV (1 ML CHARGE) ONE
[2024-08-27] MEDS ORDERED: Acetaminophen 500 MG TAB ONE (18:05)
[2024-08-27 18:09] LABS: Bacteria/HPF None Seen HPF (None Seen); Bilirubin Negative (Negative); Blood, Urine Negative (Negative); CAUTI Indications for Culture Alt mental st,lethar; Clarity Clear (Clear); Glucose, Urine (Dipstick) Normal (Negative); Ketone, Urine Negative (Negative); Leukocyte Negative Leu/uL (Negative); Nitrite Negative (Negative); Protein, Urine (Dipstick) Negative (Neg-Trace); RBC/HPF 0-3 HPF (0-3); Specific Gravity, Urine 1.015 (1.002-1.036); Squamous Epithelial 0-3 HPF (0-3); Urobilinogen Normal mg/dL (Less than 2); WBC/HPF 0-3 HPF (0-3)
[2024-08-27 18:13] LABS: #Basophils 0.05 10x3/uL (0.0-0.2); %Basophils 0.3 % (0.0-1.0); %Eosinophils 1.9 % (0.0-10.0); %Lymphocytes 4.6 % (21.0-51.0); %Monocytes 9.4 % (0.0-10.0); %Neutrophils 83.3 % (42.0-75.0); Hematocrit 38.4 % (42.0-52.0); Hemoglobin 12.5 g/dL (14.0-18.0); Mean Corpuscular HGB CONC 32.6 g/dL (32.0-36.0); Mean Corpuscular Hemoglobin 30.1 pg (27.0-31.0); Mean Corpuscular Volume 92.5 fL (78.0-98.0); Mean Platelet Volume 10.1 fL (7.4-10.4); Platelet Count 153 10x3/uL (130-400); RBC Distribution Width 13.6 % (11.5-14.5); Red Blood Cell (RBC) Count 4.15 mill/uL (4.70-6.10)
[2024-08-27 18:14] LABS: Urine Culture Reflex No No
[2024-08-27 18:27] LABS: INR-International Normal Ratio 1.2; PTT 30.8 sec (22.9-36.1); Prothrombin Time 14.9 sec (12.0-14.7)
[2024-08-27 18:28] LABS: ALT (SGPT) 21 U/L (8-55); AST (SGOT) 29 U/L (5-34); Albumin 3.3 g/dL (3.4-4.8); Alkaline Phosphatase 87 U/L (40-110); Anion Gap 15 mmol/L (10-20); BUN (Urea Nitrogen) 27 mg/dL (8.4-25.7); Bilirubin, Total 0.6 mg/dL (0.2-1.2); Calc. Creatinine Clearance 0 mL/min (70-130); Calcium 8.5 mg/dL (7.8-10.44); Carbon Dioxide 21 mmol/L (23-31); Chloride 105 mmol/L (98-107); Estimated GFR 80; Globulin 4.1 g/dL (2.4-3.5); Glucose 117 mg/dL (83-110); Lipase 12 U/L (8-78); Potassium 4.5 mmol/L (3.5-5.1); Protein, Total 7.4 g/dL (5.8-8.1); Sodium 136 mmol/L (136-145)
[2024-08-27 18:39] LABS: Troponin I 0.516 ng/mL (< 0.028)
[2024-08-27] MEDS ORDERED: Albumin 25% 100 ML ONE ×2 (19:45→22:37)
[2024-08-27] MEDS ORDERED: Ondansetron ODT 4 MG TAB PO PRN (21:05)
[2024-08-27] MEDS ORDERED: Ondansetron PF 4 MG/2 ML Vial IVP PRN (21:05)
[2024-08-27] MEDS ORDERED: Acetaminophen 650 MG Suppository PR PRN (21:05)
[2024-08-27 22:11] LABS: Troponin I 1.183 ng/mL (< 0.028)
[2024-08-27] MEDS ORDERED: DOBUTamine 500 mg/250 ml 0 ML ONE (22:36)
[2024-08-27] MEDS ORDERED: Aspirin 81 mg Enteric Coated Tablet ONE (22:36)
[2024-08-27] MEDS ORDERED: DOPamine 400 MG/D5W 250 ML 250 ML ONE (22:39)
[2024-08-27] MEDS ORDERED: Enoxaparin 30 MG (0.3 mL) SYRINGE ONE (22:42)
[2024-08-27] MEDS ORDERED: Enoxaparin 80 MG (0.8 mL) SYRINGE ONE (22:42)
[2024-08-27 22:50] LABS: Hematocrit 32.1 % (42.0-52.0); Hemoglobin 10.9 g/dL (14.0-18.0); Platelet Count 153 10x3/uL (130-400)
[2024-08-27] MEDS ORDERED: NOREPINEPHRINE 8 MG/250 ML-D5W 250 ML ONE (23:05)
[2024-08-27] MEDS ORDERED: fentaNYL 50 mcg/mL 1 mL Vial ONE (23:21)
[2024-08-27] MEDS ORDERED: Midazolam HCl 2 mg/2 ml Vial ONE (23:21)
[2024-08-27] MEDS ORDERED: Nitroglycerin 50 MG/250 ML BOT 0 ML ONE (23:21)
[2024-08-27] MEDS ORDERED: Heparin 10,000 UNITS/ 10 ML VIAL ONE (23:22)
[2024-08-27] MEDS ORDERED: Amiodarone 150 MG/3 ML VIAL ONE (23:22)
[2024-08-27] MEDS ORDERED: Aspirin 300 MG Suppository ONE (23:27)
[2024-08-27] MEDS ORDERED: KETAMINE 100 MG/ML (5ML VIAL) ONE (23:40)
[2024-08-27] MEDS ORDERED: Rocuronium Bromide 10 MG/ML (10ML VIAL) ONE (23:41)
[2024-08-27] MEDS ORDERED: Phenylephrine 10 MG/ML VIAL ONE (23:43)
[2024-08-27] MEDS ORDERED: PHENYLEPHRINE-NS 100 MCG/ML 10 ML SYRINGE ONE (23:43)
[2024-08-27] MEDS ORDERED: DOBUTamine 500 mg/250 ml 250 ML ONE (23:55)
[2024-08-27] MEDS ORDERED: DOPamine 400 MG/D5W 250 ML 250 ML IVPB SCH (23:59)
[2024-08-28] MEDS ORDERED: Vancomycin 2 GM in Sodium Chloride 0.9% 500 ML IVPB SCH (00:45)
[2024-08-28 01:13] LABS: Critical Call Chem Troponin I RESULT DECREASING; Troponin I 1.133 ng/mL (< 0.028)
[2024-08-28] MEDS ORDERED: Amiodarone 450 MG in Dextrose 5% in Water 250 ML IVPB SCH (01:45)
[2024-08-28] MEDS ORDERED: Vasopressin 20 UNITS in Sodium Chloride 0.9% 50 ML IV SCH (02:30)
[2024-08-28] MEDS: Vasopressin In 0.9 % NaCl 40 UNIT in Premix 1 BAG IV SCH (02:43)
[2024-08-28] MEDS ORDERED: EPINEPHrine 4 MG in Dextrose 5% in Water 250 ML IV SCH (02:45)
[2024-08-28] MEDS: NOREPINEPHRINE 8 MG/250 ML-D5W 250 ML IVPB SCH (02:45)
[2024-08-28] MEDS: Cefepime 2 GM in Sodium Chloride 0.9% 100 ML IVPB SCH ×2 (02:48→14:02)
[2024-08-28 02:53] VITALS: BMI 35.2
[2024-08-28] MEDS: methylPREDNISolone Sod Succ/PF 125 MG/2 ML VIAL IVP SCH (02:59)
[2024-08-28] MEDS: Sodium Chloride 0.9% 100 ML ONE (03:05)
[2024-08-28] MEDS: Cefepime 2 GM VIAL ONE (03:05)
[2024-08-28] MEDS: Vancomycin (BATCH) 2 GM in Premix 1 BAG IVPB SCH (03:28)
[2024-08-28] MEDS: Acetaminophen 325 MG TAB PO SCH (03:38)
[2024-08-28] MEDS: Amiodarone 150 MG, Admixture Fee 1 EACH in Dextrose 5% in Water 100 ML IVPB SCH (03:46)
[2024-08-28 03:49] LABS: Actual Bicarbonate (HCO3v) 21.3 mEq/L (22-28); Base Excess -6.3 mEq/L (-2.0 to +3.0); Calcium, Ionized (venous) 1.06 mmol/L (1.16-1.32); Chloride (VBG) 100 mmol/L (98-106); Hematocrit-VBG 38 % (42.0-52.0); Hemoglobin (Hb) 12.8 g/dL (12.6-17.4); Potassium (VBG) 4.31 mmol/L (3.70-5.30); Sodium 135 mmol/L (133-146); pH (venous) 7.243 (7.32-7.43)
[2024-08-28 03:50] LABS: %Basophils 0.5 % (0.0-1.0); %Eosinophils 0.8 % (0.0-10.0); %Lymphocytes 9.8 % (21.0-51.0); %Monocytes 12.2 % (0.0-10.0); %Neutrophils 76.1 % (42.0-75.0); Hematocrit 35.5 % (42.0-52.0); Hemoglobin 11.6 g/dL (14.0-18.0); Mean Corpuscular HGB CONC 32.7 g/dL (32.0-36.0); Mean Corpuscular Hemoglobin 30.1 pg (27.0-31.0); Mean Corpuscular Volume 92.2 fL (78.0-98.0); Mean Platelet Volume 10.5 fL (7.4-10.4); Platelet Count 199 10x3/uL (130-400); RBC Distribution Width 13.9 % (11.5-14.5); Red Blood Cell (RBC) Count 3.85 mill/uL (4.70-6.10)
[2024-08-28 03:58] LABS: Lactic Acid 1.51 mmol/L (0.5-2.2)
[2024-08-28 04:01] LABS: Phosphorus 3.4 mg/dL (2.3-4.7)
[2024-08-28 04:02] LABS: Anion Gap 16 mmol/L (10-20); BUN (Urea Nitrogen) 30 mg/dL (8.4-25.7); Calc. Creatinine Clearance 74 mL/min (70-130); Calcium 8.2 mg/dL (7.8-10.44); Carbon Dioxide 18 mmol/L (23-31); Chloride 104 mmol/L (98-107); Estimated GFR 59; Glucose 192 mg/dL (83-110); Magnesium 1.7 mg/dL (1.6-2.6); Potassium 4.3 mmol/L (3.5-5.1); Sodium 134 mmol/L (136-145)
[2024-08-28 04:12] LABS: Amphetamine Not Detected (NotDetected); Barbiturates Screen Not Detected (NotDetected); Benzodiazepine Screen Not Detected (NotDetected); Cocaine Metabolite Screen Not Detected (NotDetected); Methadone Not Detected (NotDetected); Methamphetamine Not Detected (NotDetected); Opiate Screen Not Detected (NotDetected); Oxycodone Screen Not Detected (NotDetected); Phencyclidine (PCP) Not Detected (NotDetected); THC/Cannabinoid Screen Not Detected (NotDetected); Tricyclic Screen Not Detected (NotDetected)
[2024-08-28] MEDS ORDERED: Furosemide 40 MG (4 mL) VIAL SLOW IVP SCH (06:00)
[2024-08-28] MEDS: Magnesium 2 GM/50 ML(in water) 2 GM in Premix 1 BAG IVPB SCH (06:11)
[2024-08-28] MEDS: Morphine 2 MG/ML VIAL SLOW IVP SCH (06:58)
[2024-08-28] MEDS ORDERED: Carvedilol 3.125 MG TAB PO SCH (08:00)
[2024-08-28] MEDS: Famotidine 20 MG TAB PO SCH (08:36)
[2024-08-28] MEDS: Famotidine/PF 20 mg/2ml Vial SLOW IVP SCH (08:39)
[2024-08-28] MEDS: Aspirin Chewable 81 MG TAB PO SCH (08:39)
[2024-08-28] MEDS ORDERED: Heparin 25,000 units/D5W 500 ML IVPB SCH (09:00)
[2024-08-28] MEDS ORDERED: Heparin 10,000 UNITS/ 10 ML VIAL SLOW IVP SCH (10:00)
[2024-08-28] MEDS: Furosemide 20 MG (2 mL) VIAL SLOW IVP SCH ×2 (11:01→17:25)
[2024-08-28 11:25] LABS: Troponin I 8.017 ng/mL (< 0.028)
[2024-08-28] MEDS: Albumin 25% 25 GM (100 mL) BOT IVPB SCH (14:02)
[2024-08-28] MEDS: Furosemide 20 MG TAB PO SCH (15:25)
[2024-08-28] MEDS: Hydrocortisone Sod Succ/PF 100 mg/2 ml Vial IVP SCH (17:25)
[2024-08-28] MEDS: Enoxaparin 100 MG (1 mL) SYRINGE SC SCH (20:22)
[2024-08-28] MEDS: Atorvastatin Calcium 40 MG TAB PO SCH (20:22)
[2024-08-29 03:12] LABS: #Basophils 0.04 10x3/uL (0.0-0.2); %Basophils 0.2 % (0.0-1.0); %Eosinophils 0.8 % (0.0-10.0); %Monocytes 6.1 % (0.0-10.0); %Neutrophils 89.5 % (42.0-75.0); Hematocrit 31.3 % (42.0-52.0); Hemoglobin 10.4 g/dL (14.0-18.0); Mean Corpuscular HGB CONC 33.2 g/dL (32.0-36.0); Mean Corpuscular Hemoglobin 30.3 pg (27.0-31.0); Mean Corpuscular Volume 91.3 fL (78.0-98.0); Mean Platelet Volume 10.9 fL (7.4-10.4); Platelet Count 129 10x3/uL (130-400); Red Blood Cell (RBC) Count 3.43 mill/uL (4.70-6.10)
[2024-08-29] MEDS: DOBUTamine 500 mg/250 ml 250 ML IVPB SCH (03:15)
[2024-08-29 06:27] LABS: Anion Gap 18 mmol/L (10-20); BUN (Urea Nitrogen) 34 mg/dL (8.4-25.7); Calc. Creatinine Clearance 72 mL/min (70-130); Carbon Dioxide 20 mmol/L (23-31); Chloride 103 mmol/L (98-107); Potassium 4.4 mmol/L (3.5-5.1); Sodium 137 mmol/L (136-145)
[2024-08-29 06:28] LABS: ALT (SGPT) 34 U/L (8-55); AST (SGOT) 110 U/L (5-34); Albumin 3.9 g/dL (3.4-4.8); Alkaline Phosphatase 56 U/L (40-110); Bilirubin, Total 0.7 mg/dL (0.2-1.2); Calcium 8.5 mg/dL (7.8-10.44); Estimated GFR 57; Globulin 3.5 g/dL (2.4-3.5); Glucose 147 mg/dL (83-110); Magnesium 2.5 mg/dL (1.6-2.6); Protein, Total 7.4 g/dL (5.8-8.1)
[2024-08-29 07:14] LABS: CRP,High Sensitivity (Inhouse) 18.05 mg/dL (< or = 0.5)
[2024-08-29] MEDS: NOREPINEPHRINE 8 MG/250 ML-D5W 250 ML IVPB SCH (07:26)
[2024-08-29] MEDS: Furosemide 40 MG (4 mL) VIAL SLOW IVP SCH (08:06)
[2024-08-29] MEDS: Furosemide 20 MG (2 mL) VIAL SLOW IVP SCH (08:06)
[2024-08-29 12:34] VITALS: TEMP 98
[2024-08-29] MEDS: Lorazepam 2 MG/ML VIAL SLOW IVP PRN (12:45)
[2024-08-29] MEDS ORDERED: Ipratropium/Albuterol 3 ML NEB NEB PRN (12:58)
[2024-08-29] MEDS ORDERED: Lorazepam 2 MG/ML VIAL SLOW IVP PRN (16:59)
[2024-08-29] MEDS: Morphine 4 MG/ML VIAL SLOW IVP PRN (17:30)
== END 2024-08-29 19:25 | disposition expired ==
LOC: ERS 17:01 → CCU 23:01
PROVIDERS: ADMIT Student in an Organized Health Care Education/Training Program; ATTEND Family Medicine
PROC: 3E033XZ Introduction of Vasopressor into Peripheral Vein, Percutaneous Approach (ICD-10-PCS; 2024-08-27)
PROC: 4A133B1 Monitoring of Arterial Pressure, Peripheral, Percutaneous Approach (ICD-10-PCS; principal; 2024-08-28)
PROC: 4A133J1 Monitoring of Arterial Pulse, Peripheral, Percutaneous Approach (ICD-10-PCS; 2024-08-28)
PROC: 03HY32Z Insertion of Monitoring Device into Upper Artery, Percutaneous Approach (ICD-10-PCS; 2024-08-28)
DX: I21.4 Non-ST elevation (NSTEMI) myocardial infarction (principal); A41.9 Sepsis, unspecified organism; I50.33 Acute on chronic diastolic (congestive) heart failure; R65.21 Severe sepsis with septic shock; J96.01 Acute respiratory failure with hypoxia; J18.9 Pneumonia, unspecified organism; G93.41 Metabolic encephalopathy; I47.10 Supraventricular tachycardia, unspecified; Z66 Do not resuscitate; Z51.5 Encounter for palliative care; R57.0 Cardiogenic shock; I25.10 Atherosclerotic heart disease of native coronary artery without angina pectoris; I11.0 Hypertensive heart disease with heart failure; E78.00 Pure hypercholesterolemia, unspecified; W19.XXXA Unspecified fall, initial encounter; Z95.1 Presence of aortocoronary bypass graft; Z90.49 Acquired absence of other specified parts of digestive tract; Z95.5 Presence of coronary angioplasty implant and graft; Z87.891 Personal history of nicotine dependence; Y93.89 Activity, other specified; Y92.091 Bathroom in other non-institutional residence as the place of occurrence of the external cause; Z79.899 Other long term (current) drug therapy; Z79.02 Long term (current) use of antithrombotics/antiplatelets; I48.91 Unspecified atrial fibrillation
CPT/HCPCS: 36415; 36416; 36556; 70450; 71045; 71275; 72125; 72131; 72170; 80048; 80053; 80306; 81001; 82805; 83605; 83690; 83735; 83880; 84100; 84145; 84443; 84484; 85025; 85610; 85730; 86141; 87040; 87633; 93005; 93306; 94760; 96365; 96372; 96375; 99292; J0282; J0692; J1250; J1265; J1644; J1650; J1720; J1940; J2060; J2250; J2272; J2371; J2919; J3010; J3370; J3475; J3490; P9047; Q9967